=== PATIENT | male | born 1950 | race Caucasian/White ===

== ENCOUNTER 2024-03-05 21:21 | Emergency (ER) | payer MEDICARE, SELFPAY ==
[2024-03-05 21:24] VITALS: BP 158/74
--- NOTE | 2024-03-05 21:55 | ED.GENMED ---
History of Present Illness
General
Chief Complaint: Head Injury
Source: patient
Exam Limitations: none
Time Seen by Provider: 03/05/24 21:48
History of Present Illness
History of Present Illness:
74-year-old male presents for evaluation of head injury. He tripped going into the house and hit his forehead on the drywall. He denies headache loss of consciousness double vision blurry vision loss of vision or neck pain. He denies any nausea.
He has no complaints offer other than a little soreness of the forehead. He is not anticoagulated. No other complaints at this time
Past History
Past History
ED Past Medical History: Asthma, HTN, Hypercholesterolemia, NIDDM, [place] and Other (Psoriasis, Kidney stones, Chronic low back,)
ED Past Surgical History: Cardiac (Stent)
Social History
Tobacco: Smoker
Alcohol: None
Drug: None
Personal:
Living: with family
Employment: Employed
Phy Exam
Physical Exam
Physical Exam:
General: Well-appearing male no acute respiratory distress
HEENT: Normocephalic pupils equal round reactive to light no raccoon eyes
Musculoskeletal exam: Spine is nontender
Neurologic normal gait alert and oriented conversing appropriately no facial asymmetry or slurred speech
Course
Vital Signs
Initial and Last Documented VS:
Initial Vital Signs
Temp Pulse Resp BP Pulse Ox
97 F 80 26 158/74 94
03/05/24 21:24 03/05/24 21:24 03/05/24 21:24 03/05/24 21:24 03/05/24 21:24
Last Documented Vital Signs
Temp Pulse Resp BP Pulse Ox
97 F 80 26 158/74 94
03/05/24 21:24 03/05/24 21:24 03/05/24 21:24 03/05/24 21:24 03/05/24 21:24
MDM/Problems Addressed
Differential Diagnosis Includes:
Head injury evaluation. Has no complaints. Neurologically intact. Discussed role for imaging at this point held off. Cannot make diagnosis of concussion given no symptoms. Does have a slight contusion to the eyebrow. Return precautions were
given stable for discharge
*Critical Care Note
Total Time (30-74mins, 75-104mins- exclusive of procedures): Not Applicable
ED Attending Note
-
Portions of this chart may have been created with voice recognition software.� Occasional wrong word or��sound alike� substitutions may have occurred due to the inherent limitations of voice recognition software.
Discharge Plan
Departure
Patient Disposition: Home (Routine Discharge)
Date of Disposition: 03/05/24
Time of Disposition: 22:00
Patient with high blood pressure during this ER visit?: No
Discharge Problem:
Contusion
Instructions: Concussion, Adult (DC)
Prescriptions:
No Action
lorazepam 2 MG tablet
1 - 2 mg PO HS
Patient Comments:
'USUALLY TAKE 2 TABS' 1MG EACH AT BEDTIME
albuterol sulfate 18 GM HFA aerosol inhaler
2 puff IH TID PRN (Reason: SOB)
Patient Comments:
ADMITS HAS TO TAKE 3X DAY A LOT
clonidine HCl 0.1 MG tablet
0.1 mg PO QPM
glipizide 10 MG tablet extended release 24hr
10 mg PO QPM
Patient Comments:
PT POOR HISTORIAN MEDICATIONS
topiramate 25 MG tablet
25 mg PO QPM
methotrexate sodium 2.5 MG tablet
8 tab PO SA
Patient Comments:
'8 TABS Q WEDNESDAY'
lisinopril 10 MG tablet
10 mg PO QPM
fluticasone propion-salmeterol [Advair Diskus] 1 DISK blister with device
2 puff inhalation BID
lorazepam 1 MG tablet
1 mg PO HS
pioglitazone 30 MG tablet
30 mg PO QPM
dapagliflozin propanediol [Farxiga] 10 MG tablet
10 mg PO QPM
Vitamin D3
1 tab PO QPM
atorvastatin 80 MG tablet
80 mg PO QPM Qty: 30 11RF
Rx Instructions:
Increase atorvastatin to 80 mg nightly
carvedilol 6.25 MG tablet
6.25 mg PO BID Qty: 30 11RF
aspirin 81 MG tablet,chewable
81 mg PO DAILY 0RF
ticagrelor [Brilinta] 90 MG tablet
90 mg PO BID Qty: 60 11RF
metformin 500 MG tablet extended release 24 hr
500 mg PO BID Qty: 60 0RF
Rx Instructions:
Resume metformin on Wednesday, April 19, 2019.
Referrals:
UNKNOWN - PT DOES,NOT KNOW [Family Provider] -
Activity Restrictions/Additional Instructions:
Please return here for any worsening symptoms as discussed including headache and vision change nausea or other concerning findings.
Interventions
Interventions:
*Risk Screen - Suicide Last Done: 03/05/24 21:24
*Neglect/Abuse Screening Last Done: 03/05/24 21:24
ED- Fall Risk Assessment Last Done: 03/05/24 21:49
Discharge Date and Time
Print Language: PASHTO
[2024-03-05 22:03] VITALS: BMI 42.3
== END 2024-03-05 22:09 | disposition home or self-care (01) ==
LOC: EMR 21:21
PROVIDERS: EMERGENCY PHYSICIAN Emergency Medicine
DX: S00.10XA Contusion of unspecified eyelid and periocular area, initial encounter (principal); W22.01XA Walked into wall, initial encounter; J45.909 Unspecified asthma, uncomplicated; I10 Essential (primary) hypertension; E78.00 Pure hypercholesterolemia, unspecified; E11.9 Type 2 diabetes mellitus without complications; I25.2 Old myocardial infarction; L40.9 Psoriasis, unspecified; F17.200 Nicotine dependence, unspecified, uncomplicated; Z87.442 Personal history of urinary calculi; Z95.5 Presence of coronary angioplasty implant and graft
CPT/HCPCS: 99282

== ENCOUNTER 2025-02-13 13:18 | Emergency (ER) | payer OTHER, SELFPAY ==
[2025-02-13 13:24] VITALS: BMI 46.7
[2025-02-13 13:25] VITALS: BP 174/72
[2025-02-13 13:30] VITALS: BP 156/70
[2025-02-13 14:00] VITALS: BP 148/51
[2025-02-13 14:12] LABS: Urine Albumin Negative (Neg - Trace); Urine Bilirubin Negative (Negative); Urine Character Clear (Clear); Urine Color Yellow; Urine Glucose 4+ (Negative); Urine Ketone 2+ (Negative); Urine Leukocyte Negative (Negative); Urine Nitrite Negative (Negative); Urine Occult Blood Negative (Negative); Urine Urobilinogen Negative (Neg - 1+)
--- NOTE | 2025-02-13 16:00 | ED.GENMED ---
History of Present Illness
General
Chief Complaint: Abdominal Pain
Source: patient
Exam Limitations: none
Time Seen by Provider: 02/13/25 13:30
Nursing documentation reviewed up to this point in time: agreed with
History of Present Illness
History of Present Illness:
Patient presents to ED secondary to difficulty with bowel movement despite using pdyq-xye-ibqmoht stool softener and laxatives, along with difficulty with urination starting today. Patient states that he does constantly deal with constipation
requiring enema treatment. Denies fever or chills. Denies abdominal pain. Denies nausea or vomiting. Denies recent change in medications.
Past History
Past History
ED Past Medical History: Asthma, HTN, Hypercholesterolemia, NIDDM, [place] and Other (Psoriasis, Kidney stones, Chronic low back,)
ED Past Surgical History: Cardiac (Stent)
Social History
Tobacco: Smoker
Alcohol: None
Drug: None
Personal:
Living: with family
Employment: Employed
Review of Systems
Review of Systems
Allergies reviewed?: Yes
All Other Systems: ROS reviewed and negative except as documented in HPI and ROS
Constitutional: Reports no symptoms; Denies fever
Cardiac: Reports no symptoms
ABD/GI: Reports constipated; Denies abdominal pain or vomiting
: Reports difficulty voiding
Musculoskeletal: Reports no symptoms
Skin: Reports no symptoms
Neurological: Reports no symptoms
Phy Exam
Physical Exam
Physical Exam:
Physical Exam
General: no apparent distress, not acutely ill. afebrile.
Head: nc/at. eomi
Neck: supple. no meningeal signs.
Abdomen: normal bowel sounds. not tender. no distention
Neuro: alert and oriented x 3. no focal neurological deficits
Skin: no rash
Psychiatric: well kept. interactive and cooperative
Extremities: no edema. no calf tenderness.
Course
Orders/Labs/Results
Orders:
Orders
02/13/25 13:31
Bladder Scan- Treatment ONCE
CR Obstruct Series W/pa Chest Urgent
Comment:
Reason For Exam: abd pain
02/13/25 13:44
UA [Urinalysis] Urgent
Date Specimen was Collected: 02/13/25
Time Specimen was Collected: 13:43
02/13/25 15:48
Phosphate Enema [Fleet Phosphate Enema-Adult] 135 ml RECTAL NOW STA
02/13/25 16:05
Lidocaine/Epinephrine/Tetracai [Let Topical Anesthetic Gel] 3 ml .ROUTE .STK-MED ONE
Abnormal Lab Results
02/13/25
13:44
Urine Ketones 2+ A
(Negative)
Urine Glucose 4+ A
(Negative)
Vital Signs
Initial and Last Documented VS:
Initial Vital Signs
Temp Pulse Resp BP Pulse Ox
98.7 F 82 18 174/72 91
02/13/25 13:25 02/13/25 13:25 02/13/25 13:25 02/13/25 13:25 02/13/25 13:25
Last Documented Vital Signs
Temp Pulse Resp BP Pulse Ox
98.7 F 82 18 148/51 94
02/13/25 13:25 02/13/25 13:25 02/13/25 13:25 02/13/25 14:00 02/13/25 14:15
MDM/Problems Addressed
MDM/Problems Addressed:
Bladder scan report reviewed. Straight cath performed to decompress patient's bladder. Patient's presenting urinary retention, likely secondary to significant constipation.
X-ray report reviewed and discussed with patient.
Rectal exam performed at bedside, accompanied by DEVAN Jimenez, with removal of significant amount of stool, with improvement in symptoms. Afterwards, patient given Fleet enema.
Prior to discharge, patient given water and is noted to urinate spontaneously without any difficulty. Patient will be discharged in stable condition, with recommendation to modify his diet, including increased fiber, along with stool softener, as
well as PCP follow-up.
*Critical Care Note
Total Time (30-74mins, 75-104mins- exclusive of procedures): Not Applicable
ED Attending Note
-
Portions of this chart may have been created with voice recognition software.� Occasional wrong word or��sound alike� substitutions may have occurred due to the inherent limitations of voice recognition software.
Discharge Plan
Departure
Patient Disposition: Home (Routine Discharge)
Date of Disposition: 02/13/25
Time of Disposition: 17:11
Patient with high blood pressure during this ER visit?: Yes
Discharge Problem:
Constipation
Instructions: Constipation, Adult (DC)
Prescriptions:
No Action
lorazepam 2 MG tablet
1 - 2 mg PO HS
Patient Comments:
'USUALLY TAKE 2 TABS' 1MG EACH AT BEDTIME
albuterol sulfate 18 GM HFA aerosol inhaler
2 puff IH TID PRN (Reason: SOB)
Patient Comments:
ADMITS HAS TO TAKE 3X DAY A LOT
clonidine HCl 0.1 MG tablet
0.1 mg PO QPM
glipizide 10 MG tablet extended release 24hr
10 mg PO QPM
Patient Comments:
PT POOR HISTORIAN MEDICATIONS
topiramate 25 MG tablet
25 mg PO QPM
methotrexate sodium 2.5 MG tablet
8 tab PO SA
Patient Comments:
'8 TABS Q WEDNESDAY'
lisinopril 10 MG tablet
10 mg PO QPM
fluticasone propion-salmeterol [Advair Diskus] 1 DISK blister with device
2 puff inhalation BID
lorazepam 1 MG tablet
1 mg PO HS
pioglitazone 30 MG tablet
30 mg PO QPM
dapagliflozin propanediol [Farxiga] 10 MG tablet
10 mg PO QPM
Vitamin D3
1 tab PO QPM
atorvastatin 80 MG tablet
80 mg PO QPM Qty: 30 11RF
Rx Instructions:
Increase atorvastatin to 80 mg nightly
carvedilol 6.25 MG tablet
6.25 mg PO BID Qty: 30 11RF
aspirin 81 MG tablet,chewable
81 mg PO DAILY 0RF
ticagrelor [Brilinta] 90 MG tablet
90 mg PO BID Qty: 60 11RF
metformin 500 MG tablet extended release 24 hr
500 mg PO BID Qty: 60 0RF
Rx Instructions:
Resume metformin on Wednesday, April 19, 2019.
Referrals:
Chester Chang MD [Family Provider, Family Practice]
Activity Restrictions/Additional Instructions:
As discussed, please follow-up with your primary care physician for further evaluation and treatment. In the meantime, slowly recommend increasing fiber intake along with utilizing outpatient stool softener.
Interventions
Interventions:
*Risk Screen - Suicide Last Done: 02/13/25 13:26
*General Assessment Last Done: 02/13/25 13:27
*Neglect/Abuse Screening Last Done: 02/13/25 13:26
*ED- Fall Risk Assessment Last Done: 02/13/25 13:27
*ED COVID-19 Vaccine History Last Done: 02/13/25 17:34
*Nursing Disposition Last Done: 02/13/25 17:34
VS-Aayubj-Qnvutxamwz Assessment Last Done: 02/13/25 13:26
Discharge Date and Time
Discharge Date/Time: 02/13/25 17:38
Print Language: PALESTINIAN
[2025-02-13] MEDS: FLEET PHOSPHATE ENEMA-ADULT 135 ML RECTAL (16:37)
== END 2025-02-13 17:38 | disposition home or self-care (01) ==
LOC: EMR 13:18
PROVIDERS: EMERGENCY PHYSICIAN Emergency Medicine; FAMILY PHYSICIAN Family Medicine
DX: K59.00 Constipation, unspecified (principal); E11.9 Type 2 diabetes mellitus without complications; E78.00 Pure hypercholesterolemia, unspecified; I10 Essential (primary) hypertension; J45.909 Unspecified asthma, uncomplicated; F17.200 Nicotine dependence, unspecified, uncomplicated; Z95.5 Presence of coronary angioplasty implant and graft
CPT/HCPCS: 99284; 74022; 81003

== ENCOUNTER 2025-03-26 19:38 | Inpatient (IN) | payer OTHER, SELFPAY ==
[2025-03-26] VITALS (7 sets, daily range): BP systolic 93–165; BP diastolic 39–81; BMI 50.1; BMI 48.1
[2025-03-26 14:07] LABS: Hematocrit 33.7 % (39.0-52.0); Hemoglobin 10.6 g/dL (13.0-18.0); Mean Corp Hgb Conc. 31.5 g/dL (33.0-37.0); Mean Corpuscular Volume 103.1 fL (80.0-94.0); Nucleated Red Blood Cells % 0 % (-); Platelet Count 135 10^3/uL (130-400); Red Cell Dist. Width 15.1 % (11.5-14.5)
[2025-03-26 14:11] LABS: INR 1.47; PT 18.1 Sec (11.4-14.6)
[2025-03-26 14:26] LABS: ALT (SGPT) 15 U/L (0-50); AST (SGOT) 22 U/L (17-59); Albumin 3.7 g/dl (3.5-5.0); Alkaline Phosphatase 90 U/L (38-126); Blood Urea Nitrogen 25 mg/dl (9-20); Calcium 8.8 mg/dl (8.4-10.2); Carbon Dioxide 29 mmol/L (22-30); Chloride 110 mmol/L (98-107); Glucose 67 mg/dl (70-99); Potassium 3.7 mmol/L (3.5-5.1); Sodium 142 mmol/L (135-145); Total Protein 5.9 g/dl (6.3-8.2); eGFR > 60.00
[2025-03-26 14:31] LABS: Troponin I < 0.012 ng/ml
--- NOTE | 2025-03-26 16:05 | ED.GENMED ---
History of Present Illness
General
Chief Complaint: Swelling
Time Seen by Provider: 03/26/25 15:45
History of Present Illness
History of Present Illness:
75-year-old male with history of coronary artery disease status post LISANDRO x 1 in 2019, hypertension, tobacco use, and rru-bdyxdbt-ljaqqemob diabetes presents to the emergency department for evaluation of diffuse lower extremity edema extending to the
scrotum. He reports extensive weight gain over an unknown timeframe, indicates that his dry weight should be roughly 280 to 285 pounds. Bed scale weight today shows 319 pounds. He reports shortness of breath today, noted to be 87% on room air for
RN. No chest pain. No fevers or chills.
Past History
Past History
ED Past Medical History: Asthma, HTN, Hypercholesterolemia, NIDDM, [place] and Other (Psoriasis, Kidney stones, Chronic low back,)
ED Past Surgical History: Cardiac (Stent)
Social History
Tobacco: Smoker
Alcohol: None
Drug: None
Personal:
Living: with family
Employment: Employed
Review of Systems
Review of Systems
Allergies reviewed?: Yes
All Other Systems: ROS reviewed and negative except as documented in HPI and ROS
Phy Exam
Physical Exam
Physical Exam:
GEN: Acute respiratory distress, unable to tolerate supine position
HEENT: Oral mucosa moist, no scleral icterus
Cardiac: Regular rate and rhythm
Lung: Tachypneic, diminished bibasilar breath sounds
MSK: Massive pitting edema BLE to scrotum
: Marked scrotal edema/erythema. Candidal dermatitis L inguinal region
Skin:Significant erythema to dorsum of R foot with macerated skin to interdigital spaces
Neuro: AO x3, moves all extremities freely
Psych: Calm, cooperative
Scores
Heart Failure Risk
Heart Failure Risk Score: Yes
History of Stroke or TIA: No
History of intubation for respiratory distress: No
Heart rate on ED arrival >/= 110: No
SaO2 <90% on arrival on room air: Yes
HR >/=110 during 3min walk test (or too ill to perform test): Yes
ECG has acute ischemic changes: No
Urea >/=12mmol/L (BUN 33.6mg/dL): No
Serum CO2>/=35mmol/L: No
Troponin I or T elevated to ND Level (0.4mg/dL): No
NT-proBNP >/=5,000ng/L (5,000pg/ml): No
HF Risk Score: 3
Admission Status: HIGH RISK 15.9% Consider SNF treatment or admission to hospital
Course
Orders/Labs/Results
Orders:
Orders
03/26/25 13:08
Electrocardiogram (*1) Urgent
Reason for Study: Chest Pain
EKG- Treatment ONCE
IV Insert/Care/Rem.- Treatment PRN
03/26/25 13:09
Chest [CR Chest - 2 Views ] Urgent
Comment:
Reason For Exam: SOB
03/26/25 13:30
BNP [NT-proBNP] Urgent
Complete Blood Count/With Diff Urgent
Comprehensive Metabolic Panel Urgent
Prothrombin Time Urgent
Troponin I Urgent
03/26/25 Dinner
1800 calorie (15 carb) Diabetic
At Your Request: Full Participation
03/26/25 16:04
Furosemide [Lasix] 60 mg IV NOW STA
Potassium Chloride [KCl] 20 meq PO NOW STA
03/26/25 16:05
CeFAZolin 2 GRAM [Ancef] 2 grams in 10 ml IV NOW
03/26/25 16:46
Garcia Placement- Treatment ONCE
Reason for insertion: I&O's Critical Care
03/26/25 19:07
Admit/Transfer Patient As Directed
Co-Sign Provider:
Level of Care: Inpatient admission
Assign to:: Telemetry
Physician / Group: Polly Graham
Diagnosis: acute on chronic congestive heart failure
Reason for Telemetry: Acute Heart Failure
Date to Stop Telemetry: 03/29/25
Time to Stop Telemetry: 11:00
Reason for Hospitalization: acute on chronic congestive heart failure
Expected length of stay greater than two midnights?: Yes
ELOS- Estimated Length of Stay in days: 3
I certify the patient meets the requirements for IP care: Yes
03/26/25 19:08
PRN Pain Medication Management As Directed
May give lesser potent ordered pain med per pt: Yes
preference::
Protocol:: Medication orders for pain may be administered in a
manner that supports deferring to patient preference
when the pt is:
- Requesting an ordered lesser potent pain medication.
Least to most potent pain medications are defined
as: acetaminophen < NSAID < tramadol < opioids
(morphine, oxycodone, hydromorphone).
- Requesting a lesser dose of the same medication IF
ORDERED.
- Requesting a less intrusive route of administration
if both routes are prescribed by the provider (PO <
IV).
03/26/25 19:09
Oxycodone/Acetaminophen [Percocet 5/325] 1 tablet PO NOW STA
03/26/25 19:13
Code Status As Directed
Resuscitation Status: Full Code
03/26/25 20:28
Acetaminophen [Tylenol] 650 mg PO Q4HPRN PRN
Albuterol [ProAIR HFA INHALER] 2 puff INH R Q6HPRN PRN wheezing
Apixaban [Eliquis] 5 mg PO Q12
Carvedilol [Coreg] 6.25 mg PO Q12
METFORMIN HCl [Glucophage] 500 mg PO .SEE BELOW
Oxycodone/Acetaminophen [Percocet 5/325] 1 tablet PO BID
Tramadol HCl [Ultram] 50 mg PO BIDPRN PRN mild pain
03/26/25 20:28
CARDIOLOGY CONSULT Routine
Consulting Provider: Jeevan Eastman
Was physician already notified: Yes
HF DIETARY CONSULT Routine
HF EDUCATOR CONSULT Routine
Comment:
Activity As Directed
Activity Level: As Tolerated
Intake/ Output As Directed
Frequency: Per unit guidelines
Patient Education As Directed
Type: CHF folder
Comment: give on admission. Document in Interdisciplinary Education record
Sleep Apnea Assessment by RN As Directed
Comment:
Physician Instructions:
Vital Signs As Directed
Frequency: Per unit guidelines
Weight As Directed
Frequency: Daily
Type of Scale: Standing Scale
Comment: Daily morning weight. If unable to stand, use balanced bed scale.
Weight As Directed
Frequency: Once
Type of Scale: Standing Scale
Comment: Upon Admission. If unable to stand, use balanced bed scale.
Pulse Ox/cont/shift [RESP] Routine
Quantity: 1
Special Instructions: Daily pulse oximetry at rest. If greater than 92% at rest also obtain pulse oximetry
while ambulating as tolerated.
03/26/25 20:40
Ipratropium Nebs [Atrovent Nebules] 0.5 mg INH R HSPRN PRN
03/26/25 22:00
Clonidine [Catapres] 0.1 mg PO HS
Lorazepam [Ativan] 2 mg PO HS
03/27/25 02:00
CeFAZolin 1 GRAM [Ancef] 1 gram in 5 ml IV Q8H
03/27/25 06:00
Echo 2D MMode Color/Doppler IN AM
Reason for Study: heart failure
Basic Metabolic Panel IN AM
Cardiovascular Evaluation IN AM
Complete Blood Count/No Diff IN AM
03/27/25 08:00
Aspirin Low Dose EC [Aspir Low (Enteric Coated)] 81 mg PO DAILY
Atorvastatin [Lipitor] 80 mg PO DAILY
Dapagliflozin [Farxiga] 10 mg PO DAILY
Furosemide [Lasix] 60 mg PO DAILY
Glipizide Extended Release [Glucotrol Xl (Extended Release)] 10 mg PO DAILY
Pioglitazone HCl [Actos] 30 mg PO DAILY
03/29/25 11:00
DC Protocol for Telemetry ONCE
Abnormal Lab Results
03/26/25
13:30
RBC 3.27 L 10^6/uL
(4.70-6.10)
Hgb 10.6 L g/dL
(13.0-18.0)
Hct 33.7 L %
(39.0-52.0)
MCV 103.1 H fL
(80.0-94.0)
MCH 32.4 H pg
(27.0-31.0)
MCHC 31.5 L g/dL
(33.0-37.0)
RDW 15.1 H %
(11.5-14.5)
MPV 10.8 H fL
(7.4-10.4)
Absolute Lymphs (auto) 0.8 L 10^3/uL
(1.2-3.4)
Lymphocytes % 15.6 L %
(20.5-51.1)
PT 18.1 H Sec
(11.4-14.6)
Chloride 110 H mmol/L
(98-107)
BUN 25 H mg/dl
(9-20)
Glucose 67 L mg/dl
(70-99)
Total Protein 5.9 L g/dl
(6.3-8.2)
03/26/25 13:30
03/26/25 13:30
Vital Signs
Initial and Last Documented VS:
Initial Vital Signs
Temp Pulse Resp BP Pulse Ox
97.7 F 66 22 157/66 93
03/26/25 13:07 03/26/25 13:07 03/26/25 13:07 03/26/25 13:07 03/26/25 13:07
Last Documented Vital Signs
Temp Pulse Resp BP Pulse Ox
97.9 F 110 20 165/74 93
03/26/25 20:46 03/26/25 20:46 03/26/25 20:46 03/26/25 20:46 03/26/25 20:46
MDM/Problems Addressed
MDM/Problems Addressed:
Patient will be admitted to the hospitalist service for further management of acute CHF, he is anticoagulated thus doubt PE or DVT. No clinical signs of pneumonia on chest x-ray. Started diuresis in the ED. Additionally due to massive edema and
skin breakdown he has signs of cellulitis to the right foot and will be treated with IV antibiotics.
*Pulse Oximetry
SaO2: 99
Nasal Cannula flow liters per minute: 3
Oxygen Mode of Delivery: Room air
Patient hypoxic: yes (87% RA)
*Critical Care Note
Total Time (30-74mins, 75-104mins- exclusive of procedures): Not Applicable
ED Attending Note
-
Portions of this chart may have been created with voice recognition software.� Occasional wrong word or��sound alike� substitutions may have occurred due to the inherent limitations of voice recognition software.
Discharge Plan
Departure
Patient Disposition: Admit
Date of Disposition: 03/26/25
Time of Disposition: 17:08
Admit to: Telemetry
Presentation/result/management discussed w/ accepting MD/DO: Hospitalist
Discharge Problem:
Acute CHF, Anasarca, Cellulitis of foot, right, Candidal intertrigo
Interventions
Interventions:
*Risk Screen - Suicide Last Done: 03/26/25 13:07
*General Assessment Last Done: 03/26/25 13:07
*Neglect/Abuse Screening Last Done: 03/26/25 16:05
*ED- Fall Risk Assessment Last Done: 03/26/25 16:05
*ED COVID-19 Vaccine History Last Done: 03/26/25 16:05
*Nursing Disposition Last Done: 03/26/25 20:17
ED- Cardiac Assessment Last Done: 03/26/25 19:26
ED- Pulmonary Assessment Last Done: 03/26/25 19:26
ED-Skin Assessment Last Done: 03/26/25 19:26
Discharge Date and Time
Discharge Date/Time: 03/26/25 20:18
[2025-03-26] MEDS: KCL 20 MEQ PO (17:08)
[2025-03-26] MEDS: LASIX 60 MG IV (17:08)
[2025-03-26] MEDS: ANCEF 10 IV (17:08)
--- NOTE | 2025-03-26 18:08 | HPS.HSE ---
Addendum entered and electronically signed by Polly Graham MD 03/26/25 22:12:
I have personally seen and examined the patient. I have reviewed the patient with ICT SYSTEMS TEST ENGINEER or PA and agree with their note.
75-year-old male with CHF, DM 2, HTN, HLD, CAD who presents with progressively worsening bilateral lower extremity edema, weight gain, and SCANLON over 2 weeks. He is somewhat of a poor historian. Patient reports compliance with all of his medication.
He reports redness of his right foot for about a week.
On exam he is hypertensive and tachycardic. He is able to speak without conversational dyspnea. His heart is regular rate and rhythm and there are no murmurs. He has crackles at bilateral lung bases. his abdomen is distended but soft and
nontender w/ NABS. He has scrotal edema, and bilateral lower extremity edema with 3+ pitting to the knees. His right foot is erythematous and weeping.
Labs notable for hemoglobin 10.6 and elevated proBNP 1230
CXR shows mild vascular congestion but no pleural effusion
EKG reviewed, Poor quality wavy baseline, appears regular
Assessment:
Acute on chronic CHF unknown if systolic or diastolic, in 2019 EF was normal
Right foot cellulitis, acute
HTN, uncontrolled
DM2, uncontrolled
Plan:
Recheck EKG to establish baseline rhythm
Check repeat echo
CHF education
Diuresis with IV Lasix, patient has Garcia monitor I&O
Cardiology consult
Continue antibiotics for cellulitis
Sliding scale insulin to control BG
Original Note:
Family Physician
-
Family Physician: Chester Chang
Chief Complaint
-
bilateral lower extremity and scrotal edema
History of Present Illness
Patient is a 75-year-old male with past medical history significant for CHF, asthma, DM II, hypertension, hyperlipidemia, and CAD who presented to [facility] ED for evaluation of bilateral lower extremity and scrotal edema. Patient reports edema has been
present and increasing for approximately 2 weeks. Is associated with exertional dyspnea. He reports going to see gear grinder today and was instructed to go to the ED for evaluation and treatment. Patient reports significant weight gain of
approximately 35-40 pounds since hospital discharge at [facility] in December where he was treated for pneumonia. Patient denies any fever, chills, cough, chest pain, nausea, vomiting or bowel or bladder changes.
Medical History
Past Medical History
Past Medical History: Reports Other
Additional Past Medical History:
CHF
asthma
DM II
hypertension
hyperlipidemia
CAD
Past Surgical History: Reports Other
Additional Past Surgical History:
Left L5-S1 ILESI 06/23/2017
Right L5-S1 Interlaminar Epidural Steroid Injection 05/23/18
Bilateral S1 Transforaminal Epidural Steroid Injection 07/21/18
L heart Cath 04/17/2019
Social History
Tobacco: Former Smoker (quit 1 year ago )
Alcohol: None
Drug: None
Personal: Other ( )
Living: With Family
Employment: Retired
Family History
Family History: Other (Father: CAD; Mother: Alzheimer's )
Allergies / Home Medications
Allergies reflects when Allergies were last updated in [employer].
Home Medications with original date entered in [employer]
Allergy/Medication List:
Allergies
Allergy/AdvReac Type Severity Reaction Status Date / Time
environmental Allergy nasal Uncoded 02/13/25 13:22
sympotms
hayfever Allergy nasal Uncoded 02/13/25 13:22
symptoms
Home Medications
clonidine HCl 0.1 mg tablet 0.1 mg PO HS 04/15/19
dapagliflozin propanediol 10 mg tablet (Farxiga) 10 mg PO DAILY 04/15/19
glipizide 10 mg tablet, extended release 24 hr 10 mg PO DAILY 04/15/19
lorazepam 1 mg tablet 2 mg PO HS 04/15/19
methotrexate sodium 2.5 mg tablet 20 mg PO SA 04/15/19
pioglitazone 30 mg tablet 30 mg PO DAILY 04/15/19
albuterol sulfate 90 mcg/actuation aerosol inhaler 2 puff inhalation R Q6HPRN PRN wheezing 03/26/25
apixaban 5 mg tablet (Eliquis) 5 mg PO Q12H 03/26/25
aspirin 81 mg tablet,delayed release 81 mg PO DAILY 03/26/25
atorvastatin 80 mg tablet 80 mg PO DAILY 03/26/25
carvedilol 6.25 mg tablet 6.25 mg PO Q12H 03/26/25
fluticasone 500 mcg-salmeterol 50 mcg/dose blistr powdr for inhalation (Advair Diskus) 0 inh inhalation .SEE BELOW PRN sob 03/26/25
furosemide 20 mg tablet 20 mg PO DAILY 03/26/25
ibuprofen 200 mg tablet (Advil) 800 - 1,000 mg PO TIDPRN PRN mild pain 03/26/25
ipratropium bromide 17 mcg/actuation HFA aerosol inhaler (Atrovent HFA) 2 puff inhalation R HSPRN PRN sob 03/26/25
metformin 500 mg tablet 500 mg PO .SEE BELOW 03/26/25
oxycodone-acetaminophen 5 mg-325 mg tablet 1 tab PO BID 03/26/25
tramadol 50 mg tablet 50 mg PO BIDPRN PRN mild pain 03/26/25
Review of Systems
-
History Source: Patient
Constitutional: Reports Weight Gain (35-40 pounds )
EENT: Reports No Symptoms
Respiratory: Reports No Symptoms
Cardiac: Reports No Symptoms
Abdomen/GI: Reports No Symptoms
: Reports No Symptoms
Musculoskeletal: Reports Edema (bilateral upper and lower extremity and scrotal )
Skin: Reports No Symptoms
Neurological: Reports No Symptoms
Endocrine: Reports No Symptoms
Hematologic/Lymphatic: Reports No Symptoms
Psych: Reports No Symptoms
Physical Exam
Vital Signs
Vital Signs
Temp Pulse Resp BP Pulse Ox
98.3 F 63 24 122/39 100
03/26/25 16:00 03/26/25 18:00 03/26/25 18:00 03/26/25 18:00 03/26/25 18:00
Physical Exam
General: Well Developed, Well Nourished and No Apparent Distress
HEENT: NormoCephalic, Moist mucous membranes and Atraumatic
Respiratory: Clear and Decreased Breath Sounds
Cardiac: S1/S2, Regular Rhythm and Peripheral Edema (bilateral lower extremity pitting edema)
GI: Soft, Non Tender, Non Distended and Normal Bowel Sounds; No Organomegaly
Rectal: Deferred by Provider
Genito-urinary: Other (scrotal edema with jamey )
Musculoskeletal: No Clubbing, No Cyanosis, Edema, Left Lower Extremity and Edema, Right Lower Extremity
Skin: Warm and Other (erythema to dorsal right foot )
Neuro: Awake, Alert, AO x 3 and Nonfocal/grossly intact
Psych: Calm and Intact Judgment/Insight
Laboratory Results
-
03/26/25 13:30
03/26/25 13:30
Laboratory Results
PT 18.1 Sec (11.4-14.6) H 03/26/25 13:30
INR 1.47 03/26/25 13:30
Total Bilirubin 0.7 mg/dl (0.2-1.3) 03/26/25 13:30
AST 22 U/L (17-59) 03/26/25 13:30
ALT 15 U/L (0-50) 03/26/25 13:30
Alkaline Phosphatase 90 U/L (38-126) 03/26/25 13:30
Troponin I < 0.012 ng/ml 03/26/25 13:30
Data Reviewed
-
Diagnostic Radiology: Report Reviewed by me (CXR: Mild prominence of the pulmonary vasculature suggestive of mild vascular congestion. No focal airspace disease. No large pleural effusion)
Medical Tests (Nuc Med, Echo, EKG etc): Report Reviewed by me (EKG: POOR DATA QUALITY, INTERPRETATION MAY BE ADVERSELY AFFECTED SINUS RHYTHM LOW VOLTAGE QRS)
Lab Data: Labs Reviewed by me (hgb 10.6, hct 33.7, BNP 1230, trop <0.012)
Impression/Plan
-
IMPRESSION/PLAN:
#acute on chronic congestive heart failure
sees gear grinder at [facility], does not recall group name or physician name
hgb 10.6, hct 33.7, BNP 1230, trop <0.012
EKG: POOR DATA QUALITY, INTERPRETATION MAY BE ADVERSELY AFFECTED
SINUS RHYTHM
LOW VOLTAGE QRS
CXR: Mild prominence of the pulmonary vasculature suggestive of mild vascular congestion. No focal airspace disease. No large pleural effusion.
- Admit to telemetry
- Consult Cardiology
- IV Lasix
- continue dapagliflozin
- daily weights
- I & Os
#right foot cellulitis
- IV Ancef
#asthma
- continue albuterol HFA and Atrovent HFA
#DM II
- continue dapagliflozin, glipizide and pioglitazone
- hold metformin
#hypertension
- continue clonidine
#hyperlipidemia
#CAD
- continue aspirin and atorvastatin
Patient unaware why he takes Eliquis, is aware it is prescribed and takes it BID. He is also unsure who prescribes for him. Continued Eliquis on med rec for now.
Code status: Full code
DVT prophylaxis: Eliquis
--- NOTE | 2025-03-26 18:10 | PHANOTE ---
03/26/2025, pt. claims to be taking 2 puffs of Advair inhaler TIDPRN for SOB; could not confirm with pharmacy records; ecw records are from 07/23/2025.
[2025-03-26] MEDS: PERCOCET 5/325 1 TABLET PO ×2 (19:17→21:44)
[2025-03-26 21:19] LABS: Glucose - Point of Care 98 mg/dl (70-99)
[2025-03-26] MEDS: ATIVAN 2 MG PO (21:43)
[2025-03-26] MEDS: ELIQUIS 5 MG PO (21:43)
[2025-03-26] MEDS: COREG 6.25 MG PO (21:43)
[2025-03-26] MEDS: CATAPRES 0.1 MG PO (21:44)
[2025-03-26] MEDS: DESENEX/MITRAZOL/ZEASORB 1 APPLIC TOPICAL (22:36)
[2025-03-27] VITALS (7 sets, daily range): BP systolic 103–135; BP diastolic 52–90; BMI 48.1; BMI 48.3
[2025-03-27] MEDS: ANCEF 5 IV ×3 (02:10→17:22)
[2025-03-27] MEDS: FLUSH (NSS) 2 FLUSH IV (02:11)
--- NOTE | 2025-03-27 02:44 | PTCARENOTE ---
Patient received from ED via stretcher and was assisted to bed by staff. He was oriented to room and surroundings. O2 at 3lpm with sat 93% Breath sounds are decreased at the bases. Patient with dyspnea on exertion and orthopnea. HR irregular.
Tele A-fib. Dr Graham in room , tele strip reviewed and patient assessed by her. Garcia draining clear yellow urine. Garcia care done. Wounds as documented. See nursing assessment for further physical findings.
[2025-03-27 04:04] LABS: Glucose - Point of Care 60 mg/dl (70-99)
[2025-03-27 04:17] LABS: Glucose - Point of Care 65 mg/dl (70-99)
[2025-03-27 04:33] LABS: Glucose - Point of Care 78 mg/dl (70-99)
[2025-03-27 06:22] LABS: Glucose - Point of Care 108 mg/dl (70-99)
[2025-03-27 07:24] LABS: Hematocrit 32.8 % (39.0-52.0); Hemoglobin 10.4 g/dL (13.0-18.0); Mean Corp Hgb Conc. 31.7 g/dL (33.0-37.0); Mean Corpuscular Volume 102.8 fL (80.0-94.0); Platelet Count 131 10^3/uL (130-400); Red Cell Dist. Width 14.9 % (11.5-14.5)
[2025-03-27 07:29] LABS: Glucose - Point of Care 96 mg/dl (70-99)
[2025-03-27 07:34] LABS: Blood Urea Nitrogen 22 mg/dl (9-20); Calcium 8.3 mg/dl (8.4-10.2); Carbon Dioxide 30 mmol/L (22-30); Chloride 109 mmol/L (98-107); Estimated Creatinine Clearance > 125 ml/min; Glucose 106 mg/dl (70-99); HDL Cholesterol 43 mg/dl; LDL Cholesterol, Calculated 38 mg/dl; Potassium 3.6 mmol/L (3.5-5.1); Sodium 143 mmol/L (135-145); Very Low Density Lipoprotein 13 mg/dl (0-30); eGFR > 60.00
[2025-03-27] MEDS: LIPITOR 80 MG PO (08:10)
[2025-03-27] MEDS: NOVOLOG FLEXPEN-LOW RESISTANCE SC ×2 (08:10→16:40)
[2025-03-27] MEDS: ASPIR LOW (ENTERIC COATED) 81 MG PO (08:11)
[2025-03-27] MEDS: GLUCOTROL XL (EXTENDED RELEASE) 10 MG PO (08:11)
[2025-03-27] MEDS: ACTOS 30 MG PO (08:11)
[2025-03-27] MEDS: ELIQUIS 5 MG PO ×2 (08:11→20:42)
[2025-03-27] MEDS: FARXIGA 10 MG PO (08:11)
[2025-03-27] MEDS: PERCOCET 5/325 1 TABLET PO ×2 (08:14→20:43)
[2025-03-27] MEDS: LASIX 60 MG PO (08:15)
[2025-03-27] MEDS: COREG 6.25 MG PO ×2 (08:18→20:44)
[2025-03-27] MEDS: DESENEX/MITRAZOL/ZEASORB 1 APPLIC TOPICAL ×2 (08:20→20:44)
[2025-03-27 09:45] LABS: Glycohemoglobin (HgbA1c) 6.2 % (4.0-5.6)
--- NOTE | 2025-03-27 09:47 | PN.DE.MGMTRT ---
Insulin Management
- -
03/27/2025: Diabetes Management Consult
75 year old male with PMH: CHF, HTN, HLD, CAD and NIDDM, who presented to the ED with progressively worsening BLE edema, weight gain, and SCANLON over 2 weeks. He is somewhat of a poor historian. Patient reports compliance with all of his Diabetes
medications. A1C is 6.2%, Cr 0.7, eGFR >60
Chart review indicates that he was taking Actos 30 mg daily, Metformin 500mg BID, Farxiga 10mg daily and Glipizide 10mg daily Prior to admission.
Patient is awake, alert, resting in bed, noted for WOB, offers no complains, able to discuss diabetes care plan and collaborate his OP regimen.
Sees his PCP for routine Diabetes care. States he has a working glucose monitor and has been consistently monitoring his blood sugars(90-100's)
Glucose on admission was 67, has remained low normal since admission. HS glucose was 98, experienced hypoglycemia of 60 @ 4AM, improved after treatment.
Will reduce glipizide to 5mg daily. Continue Farxiga 10mg daily and Metformin 500mg BID.
Will HOLD Actos while inpatient and consider discontinuing it, given setting of heart failure.
Diabetes History
- -
Type of Diabetes: 2 requiring insulin
Pre-Admission Diabetes Regimen
03/26/25 03/27/25
13:30 06:28
Creatinine 0.8 0.7
Insulin Pump Settings
IP Diabetes Regimen
03/26/25 03/26/25 03/27/25
13:30 21:18 04:02
Glucose 67 L
POC Glucose 98 60 L
03/27/25 03/27/25 03/27/25
04:16 04:32 06:21
Glucose
POC Glucose 65 L 78 108 H
03/27/25 03/27/25
06:28 07:23
Glucose 106 H
POC Glucose 96
Patient Education
--- NOTE | 2025-03-27 09:48 | CON.CAR ---
Addendum entered and electronically signed by Anu Johnston PA-C 03/27/25 13:29:
Received records from outpatient publicity director Dr. Jeremiah Almazan of [facility]. Patient was last seen in October 2024.
Prior cardiac testing includes Lexiscan nuclear stress test in September 2022 which showed normal perfusion with possible inferior infarct versus artifact.
Addendum entered and electronically signed by Jeevan Eastman MD 03/27/25 12:36:
I saw and examined the patient.
The CALENDAR CONTROL CLERK BLOOD BANK or PA's note was reviewed and I agree with the note.
Comment: General: Well developed, well nourished in NAD.
Neck: Supple, no JVD, HJR, carotids +2 B/L, no bruits bilaterally.
Heart: Non displaced PMI, irregular, no murmurs, No S3, S4, no rubs.
Lungs: Scattered rhonchi
Extremities: Moderate edema bilaterally
Neuro: Grossly nonfocal, awake, alert and oriented x3.
Val[place] has a history of CAD with complete occlusion of PDA and mid LAD stent, chronic diastolic CHF, hypertension, hyperlipidemia, A-fib on chronic Eliquis, asthma, chronic back pain, morbid obesity. He was followed by [facility] [place] but is now followed by
[facility]. He presented weight gain lower extremity edema scrotal edema and shortness of breath. Chest x-ray consistent with CHF. proBNP 1230 with undetectable troponin.
Will diurese with IV Lasix. Dry weight might be as low as 290 pounds and is currently 310 pounds. Echocardiogram unchanged. Continue rate control of A-fib with carvedilol and also Eliquis. Might consider eventual cardioversion but might be high
risk for recurrent A-fib with likely severe sleep apnea
Original Note:
Consultation
Consultation Request
Date/Time Consultation Requested: 03/26/2025
Date/Time Consultation Performed: 03/27/2025
Requesting Provider: GEORGE Mcfarland
Performing Provider: Anu Johnston PA-C for Dr. Jeevan Eastman
Reason for Consultation: Weight gain, lower extremity edema, scrotal edema
Medical History
-
History of Present Illness:
Patient is a 75-year-old male with past medical history for coronary artery disease, type 2 diabetes, hypertension, hyperlipidemia, tobacco abuse, obesity, heart failure with preserved ejection fraction, chronic back pain and asthma. Patient was
previously followed by Dr. Xiong and was last seen in cardiology office in 2019 now reporting he follows with [facility] Dr. Almazan. He reports he was told by their office yesterday to go to the hospital and he has had bad
experiences at [facility] so he came to [place].
He presents to emergency department 03/26/2025 with weight gain, bilateral lower extremity edema, scrotal edema and shortness of breath. Chest x-ray with Mild prominence of the pulmonary vasculature suggestive of mild vascular congestion. No focal
airspace disease. No large pleural effusion. proBNP of 1230, troponin undetectable. EKG initially showed sinus rhythm however upon further review now appears patient is in atrial fibrillation with controlled ventricular response. Patient was given
60 mg IV Lasix in emergency department. Patient reports he has had good urination and feels less short of breath sitting in bed. He denies chest pain, palpitations, dizziness, lightheadedness
Past medical history:
Coronary artery disease
NEWSROOM INTERN of PDA on cath 2018
Status post mid LAD 3.5 x 28 mm Promus LISANDRO April 2019
Heart failure with previously ejection fraction
Hypertension
Hyperlipidemia
Paroxysmal atrial fibrillation
Chronic anticoagulation on Eliquis
Obesity
Tobacco abuse
Chronic back pain
Asthma
Past Medical History
Past Medical History: Other (See HPI)
Past Surgical History: Orthopedic (Multiple Interlaminar Epidural Steroid Injections )
Social History
Tobacco: Former Smoker (Quit 2023)
Alcohol: None
Drug: None
Personal: Other ()
Living: With Family (Lives with son)
Employment: Retired
Family History
Family History: CAD (Father)
Allergies / Home Medications
Allergy/AdvReac Type Severity Reaction Status Date / Time
pollen extracts Allergy HAYFEVER-NASAL Verified 03/26/25 20:30
SYMPTOMS
�Medication �Instructions �Recorded �Confirmed �Type
clonidine HCl 0.1 mg tablet 0.1 mg PO HS Blood Pressure 04/15/19 03/26/25 History
dapagliflozin propanediol 10 mg 10 mg PO DAILY Diabetes 04/15/19 03/26/25 History
tablet (Farxiga)
glipizide 10 mg tablet, extended 10 mg PO DAILY Diabetes 04/15/19 03/26/25 History
release 24 hr
lorazepam 1 mg tablet 2 mg PO HS Mental Health/Anxiety 04/15/19 03/26/25 History
methotrexate sodium 2.5 mg tablet 20 mg PO SA CHEMO 04/15/19 03/26/25 History
pioglitazone 30 mg tablet 30 mg PO DAILY Diabetes 04/15/19 03/26/25 History
albuterol sulfate 90 mcg/actuation 2 puff inhalation R Q6HPRN PRN 03/26/25 03/26/25 History
aerosol inhaler wheezing
apixaban 5 mg tablet (Eliquis) 5 mg PO Q12H Blood Clot 03/26/25 03/26/25 History
Prevention/Tx
aspirin 81 mg tablet,delayed 81 mg PO DAILY Blood Clot 03/26/25 03/26/25 History
release Prevention/Tx
atorvastatin 80 mg tablet 80 mg PO DAILY High Cholesterol 03/26/25 03/26/25 History
carvedilol 6.25 mg tablet 6.25 mg PO Q12H Blood Pressure 03/26/25 03/26/25 History
fluticasone 500 mcg-salmeterol 50 0 inh inhalation .SEE BELOW 03/26/25 History
mcg/dose blistr powdr for PRN sob
inhalation (Advair Diskus)
furosemide 20 mg tablet 20 mg PO DAILY Fluid 03/26/25 03/26/25 History
Retention/Swelling
ibuprofen 200 mg tablet (Advil) 800 - 1,000 mg PO TIDPRN PRN mild 03/26/25 03/26/25 History
pain
ipratropium bromide 17 2 puff inhalation R HSPRN PRN sob 03/26/25 03/26/25 History
mcg/actuation HFA aerosol inhaler
(Atrovent HFA)
metformin 500 mg tablet 500 mg PO .SEE BELOW Diabetes 03/26/25 03/26/25 History
oxycodone-acetaminophen 5 mg-325 1 tab PO BID Pain 03/26/25 03/26/25 History
mg tablet
tramadol 50 mg tablet 50 mg PO BIDPRN PRN mild pain 03/26/25 03/26/25 History
Review of Systems
-
History Source: Patient
All other systems: Negative unless noted
Physical Exam
Vital Signs
Temp Pulse Resp BP Pulse Ox
98.5 F 107 20 140/82 98
03/27/25 07:25 03/27/25 08:15 03/27/25 07:25 03/27/25 08:15 03/27/25 07:25
GEN: No distress, awake, Ox3, sitting in bed on oxygen
HEENT: supple, anicteric, mmm
LUNGS: Decreased breath sounds at bases bilaterally otherwise CTA, no wheezes/rales; wearing 3 L of oxygen via nasal cannula
CV: Distant heart tones irregularly irregular, S1/S2, no murmur, rub or gallop,
ABD: Obese, mild distention, BS+, NT/ND
EXT: +2-3 bilateral lower extremity edema
NEURO: Gross non-focal
SKIN: No rash, warm, dry, pink
Lab Results
03/27/25 06:28
03/27/25 06:28
Troponin I < 0.012 ng/ml 03/26/25 13:30
Qya-O-Ronbzpzwwxu Pept 1230 pg/ml 03/26/25 13:30
Impression / Plan
-
PCP: Chester Wilson
Hall Porter: Previously followed by Dr. Xiong, now follows with Dr. Almazan at [facility]
Impression:
Presents 03/26/2025 with weight gain, lower extremity edema, scrotal edema and shortness of breath
Acute on chronic heart failure with preserved ejection fraction on echo in 2019
Right foot cellulitis
Coronary artery disease
NEWSROOM INTERN of PDA on cath 2018
Status post mid LAD 3.5 x 28 mm Promus LISANDRO April 2019
Heart failure with preserved ejection fraction
Hypertension
Hyperlipidemia
Obesity
Tobacco abuse
Chronic back pain
Asthma
Cath Apr 2019: 95% stenosis in the mid LAD between the first and second septal perforated branches, 100% chronic occlusion of the PDA, ejection fraction 55% by left ventriculography. He underwent PCI and LISANDRO of mid LAD stenosis with a 3.5 x 28 mm
Promus stent.
Echo 03/27/2025: EF 60 to 65%, mild to moderate concentric LVH. Mild MR.
Echo 06/26/2020: TDS: EF 63%. Mild concentric LVH. No significant valvular disease
Plan:
Presents 03/26/2025 with weight gain, lower extremity edema, scrotal edema and shortness of breath
Acute on chronic heart failure with preserved ejection fraction,
-Appears acutely volume overloaded on examination although proBNP 1230. Suspect this is underestimated given patient's morbid obesity
-Ongoing IV diuresis with Lasix 40 mg twice a day
-Ongoing monitoring of renal function, currently stable with BUN 22, creatinine 0.7
-Continue carvedilol and Farxiga. Unclear why not on NANETTE-i/ARB or arni. Outpatient cardiology records have been requested
-Potassium 3.6. Did get potassium in the emergency department will replete with ongoing diuresis
-Echocardiogram as noted above with preserved ejection fraction and mild MR
-Patient still requiring supplemental oxygen, wean as tolerated
Paroxysmal atrial fibrillation
- Presented in sinus rhythm however now in atrial fibrillation with controlled ventricular response. Continue to monitor with diuresis.
- Continue Eliquis and Coreg for rate control
Known coronary artery disease with LAD LISANDRO in 2019.
-Troponin negative on admission. Patient denies chest pain
- Continue aspirin, high intensity statin, beta-lindy, Farxiga
-Lipids at goal with TC 94, HDL 43, LDL 38, triglycerides 69
Outpatient cardiology records from [facility] have been requested
Data Reviewed
-
EKG: Report Reviewed by me, Discussed with Physician and Discussed with Patient
Radiology: Report Reviewed by me, Discussed with Physician and Discussed with Patient
Labs: Labs Reviewed by me, Discussed with Physician and Discussed with Patient
Old Records: Requested (current cardiology records) and Reviewed (outpt card records from 2019)
--- NOTE | 2025-03-27 10:54 | CARDSERVLU ---
Echocardiogram with [facility]ason completed after protocol screening completed. Allergies verified.
Patent IV site: __existing site 20P LAC___
IV site flushed with 0.9% NaCl pre and post administration.
Diluted bolus method utilized to enhance visualization of ventricular nelson under direction echosonographer.
Total volume given: __2.0__ mL
Patient tolerated all procedures well without complications.
[2025-03-27] MEDS: KCL 40 MEQ PO (11:04)
[2025-03-27 11:39] LABS: Glucose - Point of Care 160 mg/dl (70-99)
--- NOTE | 2025-03-27 11:54 | WOUNDNOTE ---
[facility] RN note: Patient admitted with cellulitis of R foot, candidal intertrigo.
See H&P for complete history.
PMH: ED Past Medical History: obesity, Asthma, HTN, Hypercholesterolemia, NIDDM, [place] and Other (Psoriasis, Kidney stones, Chronic low back,)
ED Past Surgical History: Cardiac (Stent)
Wound Location and type/assessment: Patient admitted with: severe MASD in skin folds and R foot. Asked by nurse Michela to assess patient, being transferred to stretcher for a test upon assessment. Unable to take photos. Skin folds red and moist, L
groin >R, foul odor. R foot red with what appears to be a fungal rash. Fungal powder already in use for skin folds. Sacrum intact, silicone foam in use.
Appetite: Good, certified adapted physical educator on consult.
Pressure redistribution devices in place: Accumax, ambulates with assist.
Plan: Called SPD for Vashe, recommend place on gauze and soak red skin folds bid followed by dusting of fungal powder after drying area. Can place folded sheet or non woven gauze in skin folds that are moist. Recommend Nizoral cream for R foot. Will
confirm orders with hospitalist and updated nurse.
Updated care plan and will follow as needed.
Note to case management of equipment requested for discharge: TBD.
Recommend follow up with leaf sorter upon discharge.
[2025-03-27] MEDS: NOVOLOG FLEXPEN-LOW RESISTANCE 1 UNITS SC (12:14)
--- NOTE | 2025-03-27 12:55 | PTCARENOTE ---
stat orders for 40mg IV lasix. BP 106/52, HR 90s. provider notified, wants to hold off on administering dose now. will continue to monitor
--- NOTE | 2025-03-27 15:08 | W.PN.HOSP.TC ---
Today's Communication/Plan
-
IV Lasix
Echo
Continue IV antibiotics for cellulitis
Assessment / Plan
Assessment / Plan
75-year-old male with CHF, DM 2, HTN, HLD, CAD who presents with progressively worsening bilateral lower extremity edema, weight gain, and SCANLON over 2 weeks. Found to be having acute CHF exacerbation and right foot cellulitis.
#Acute on chronic congestive heart failure, with preserved ejection fraction
Follows with [facility]
Cardiology here consulted, I discussed with team
Echo performed EF 60 to 65% with indeterminate diastolic function and mild-mod concentric LVH
Continue to monitor on telemetry
Patient was inadvertently placed on oral instead of IV Lasix this morning, changed back to IV Lasix twice daily
Replete potassium to 4
Monitor daily weight and I&O, continue Garcia
O2 per protocol to maintain sat above 92%, wean off as able
Patient states his dry weight is 280 pounds
# Chronic A-fib
Continue rate control with Coreg
Continue Eliquis
#right foot cellulitis
- Continue with IV Ancef and monitor for improvement
Wound care following
#asthma
- Controlled, continue albuterol HFA and Atrovent HFA
#DM II
- Controlled
Sliding scale insulin while inpatient
-hold metformin, glipizide and pioglitazone while inpatient
Continue dapagliflozin
#hypertension
BP controlled
- continue clonidine, carvedilol, Lasix
#hyperlipidemia
#CAD
- continue aspirin and atorvastatin
DVT PPx
Eliquis
Anticipated Discharge: > 48 hours
Subjective/Interval History
-
Date of Service: March 27, 2025
Still having dyspnea on exertion after a few steps, still having orthopnea, lower extremity edema.
Objective Data
-
Labs:
Laboratory Results
03/27/25
06:28
WBC 5.4
Hgb 10.4 L
Hct 32.8 L
Plt Count 131
Sodium 143
Potassium 3.6
Chloride 109 H
Carbon Dioxide 30
BUN 22 H
Creatinine 0.7
Glucose 106 H
Calcium 8.3 L
Vital Signs:
Vital Signs
Temp Pulse Resp BP Pulse Ox
97.6 F 98 18 105/52 98
03/27/25 11:22 03/27/25 12:45 03/27/25 11:22 03/27/25 12:45 03/27/25 11:22
I&O
03/26/25 03/27/25 03/28/25
06:59 06:59 06:59
Output Total 3650 / 3650
Balance -3650 / -3650
Review of Systems
-
All other systems: Reviewed and negative
Physical Exam
-
General: Well Developed, Well Nourished, No Apparent Distress and Obese
HEENT: Moist Mucous Membranes and PERRLA
Respiratory: Crackles and Non Labored Respirations; Negative Wheezes or Rales
Cardiac: Irregular Rhythm and Murmur; Negative Rub or Gallop
GI: Soft, Nontender, Nondistended and Normal Bowel Sounds
Genito-urinary: Garcia (Clear yellow urine)
Musculoskeletal: Edema, Right Lower Extrem and Edema, Left Lower Extrem
Skin: Warm, Dry and Rash (Right foot erythema)
Neuro: Awake, AO x 3 and Nonfocal/Grossly Intact
Psych: Calm
Data Reviewed
-
Labs: Labs Reviewed by me and Discussed with Patient
[2025-03-27] MEDS: LASIX 40 MG IV (15:53)
[2025-03-27] MEDS: ULTRAM 50 MG PO (15:55)
[2025-03-27 16:38] LABS: Glucose - Point of Care 99 mg/dl (70-99)
[2025-03-27] MEDS: GLUCOPHAGE 500 MG PO (16:45)
[2025-03-27] MEDS: NIZORAL 2% CREAM 1 APPLIC TOPICAL (20:45)
[2025-03-27 21:28] LABS: Glucose - Point of Care 108 mg/dl (70-99)
[2025-03-27] MEDS: CATAPRES 0.1 MG PO (22:56)
[2025-03-27] MEDS: ATIVAN 2 MG PO (22:56)
[2025-03-28 03:00] VITALS: BP 146/69
[2025-03-28] MEDS: ANCEF 5 IV ×2 (03:00→11:56)
[2025-03-28] MEDS: FLUSH (NSS) 1 FLUSH IV ×4 (03:01→17:08)
[2025-03-28] MEDS: ULTRAM 50 MG PO ×2 (03:30→15:50)
[2025-03-28 05:47] VITALS: BMI 47.5
[2025-03-28 07:20] VITALS: BP 150/67
[2025-03-28] MEDS: NIZORAL 2% CREAM 1 APPLIC TOPICAL ×2 (07:46→20:30)
[2025-03-28] MEDS: DESENEX/MITRAZOL/ZEASORB 1 APPLIC TOPICAL ×2 (07:48→20:30)
[2025-03-28] MEDS: ASPIR LOW (ENTERIC COATED) 81 MG PO (07:49)
[2025-03-28] MEDS: LIPITOR 80 MG PO (07:49)
[2025-03-28] MEDS: FARXIGA 10 MG PO (07:49)
[2025-03-28] MEDS: GLUCOPHAGE 500 MG PO ×2 (07:49→17:09)
[2025-03-28] MEDS: PERCOCET 5/325 1 TABLET PO ×2 (07:50→20:29)
[2025-03-28] MEDS: COREG 6.25 MG PO ×2 (07:50→20:29)
[2025-03-28] MEDS: ELIQUIS 5 MG PO ×2 (07:50→20:29)
[2025-03-28] MEDS: LASIX 40 MG IV (07:50)
[2025-03-28 08:03] LABS: ALT (SGPT) 10 U/L (0-50); AST (SGOT) 18 U/L (17-59); Albumin 3.3 g/dl (3.5-5.0); Alkaline Phosphatase 82 U/L (38-126); Blood Urea Nitrogen 20 mg/dl (9-20); Calcium 8.4 mg/dl (8.4-10.2); Carbon Dioxide 30 mmol/L (22-30); Chloride 106 mmol/L (98-107); Estimated Creatinine Clearance > 125 ml/min; Glucose 73 mg/dl (70-99); Magnesium 2.2 mg/dl (1.6-2.3); Potassium 3.6 mmol/L (3.5-5.1); Sodium 142 mmol/L (135-145); Total Protein 5.5 g/dl (6.3-8.2); eGFR > 60.00
[2025-03-28 08:09] LABS: Glucose - Point of Care 84 mg/dl (70-99)
--- NOTE | 2025-03-28 08:22 | PN.DE.MGMTRT ---
Insulin Management
- -
03/28/2025: Diabetes Management Consult Follow up
Patient admitted 03/26 with swelling of bilateral legs. PMH: CHF, HTN, HLD, CAD and NIDDM, a fib, asthma, active tobacco use. Prior to admission was taking Actos 30 mg daily, Metformin 500mg daily (ordered BID), Farxiga 10mg daily and Glipizide
10mg daily. A1C is 6.2%, Cr 0.7, eGFR >60
Patient is awake, alert, out of bed in chair, offers no complains, able to discuss diabetes care plan and collaborate his OP regimen.
Sees his PCP for routine Diabetes care. States he has a working glucose monitor and has been consistently monitoring his blood sugars(90-100's)
Glucose on admission was 67, has remained low normal since admission. HS glucose was 98, experienced hypoglycemia of 60 @ 4AM, improved after treatment.
03/27 Patient received Glipizide 10 mg daily with Farxiga 10mg daily and Metformin 500mg BID.
03/28 Fasting glucose this AM 84. Glipizide reduced to 5 mg today with Farxiga and Metformin.
Discussed with nurse
Will follow.
Will not resume Actos, it is contraindicated in patient with heart failure.
Diabetes History
- -
Type of Diabetes: 2
Pre-Admission Diabetes Regimen
03/28/25
06:18
Creatinine 0.7
Lab Results
Hemoglobin A1c 6.2 % (4.0-5.6) H 03/27/25 06:28
Insulin Pump Settings
IP Diabetes Regimen
03/27/25 03/27/25 03/27/25
11:37 16:36 21:27
Glucose
POC Glucose 160 H 99 108 H
03/28/25 03/28/25
06:18 08:07
Glucose 73
POC Glucose 84
Meal type: Lunch
Amount consumed: 100%
Patient Education
[2025-03-28] MEDS: NOVOLOG FLEXPEN-LOW RESISTANCE SC ×3 (09:06→17:15)
[2025-03-28] MEDS: GLUCOTROL 5 MG PO (09:08)
--- NOTE | 2025-03-28 09:16 | W.PN.CARDCBS ---
Addendum entered and electronically signed by Chalo Xiong MD 03/28/25 17:54:
I saw and examined the patient.
The Castings Drafter's note was reviewed and I agree with the note.
Comment:
GEN: No distress, awake, Ox3
HEENT: supple, anicteric, mmm
LUNGS: scatt rhonchi
CV: irreg, S1/S2, 1/6 syst LSB, no murmur
ABD: soft, BS+, NT/ND
EXT: ++ edema
NEURO: Gross non-focal
SKIN: No rash
Plan:
Remains volume overloaded. Continue Lasix 40 mg IV twice daily. Continue Coreg and agree with adding spironolactone. Continue Farxiga.
Continue to follow blood pressure. Creatinine overall normal.
He is having paroxysms of atrial fibrillation. Continue higher dose of Coreg and follow on telemetry. Would consider cardioversion this admission or as outpatient depending on how well he diuresis.
Continue medical therapy for coronary artery disease. Continue aspirin, atorvastatin, carvedilol.
We discussed the importance of fluid restriction and CHF education
Original Note:
Today's Communication / Plan
-
Start spironolactone 12.5 mg daily
Continue with Lasix 40 mg IV BID
Impression / Plan
-
PCP: Chester Wilson
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 Almazan at [facility]
Impression:
Presents 03/26/2025 with weight gain, lower extremity edema, scrotal edema and shortness of breath
Acute on chronic HFpEF
Right foot cellulitis
Coronary artery disease
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
Status post mid LAD 3.5 x 28 mm Promus LISANDRO April 2019
Hypertension
Hyperlipidemia
Obesity
Tobacco abuse
Chronic back pain
Asthma
Paroxysmal A-fib
Chronic Eliquis OAC
Cath Apr 2019: 95% stenosis in the mid LAD between the first and second septal perforated branches, 100% chronic occlusion of the PDA, ejection fraction 55% by left ventriculography. He underwent PCI and LISANDRO of mid LAD stenosis with a 3.5 x 28 mm
Promus stent.
Echo 06/26/2020: TDS: EF 63%. Mild concentric LVH. No significant valvular disease
Echo 03/27/2025: EF 60 to 65%, mild to moderate concentric LVH. Mild MR.
Plan:
-Weight is down 7 lbs overnight with Lasix 40 mg IV BID. Patient was taking Lasix 20 mg PO daily prior to admission
-Cre stable at 0.7 on labs reviewed by me 03/28/2025
-Patient reports ongoing scrotal edema and wounds that are being managed, he says nursing is doing a great job taking care of his wounds
-EF 60 to 65% by echo 03/27/2025, report reviewed and summarized above by me
-Outpatient dose of Coreg 6.25 mg BID has been continued
-Patient is not chronically on NANETTE/ARB/ARNI/aldosterone antagonist for unclear reasons. Will start spironolactone 12.5 mg daily on 03/28/2025, orders placed by me.
-Outpatient dose of Farxiga 10 mg daily has been continued
-Patient with known history of paroxysmal A-fib, but was in SR on admission. Patient spontaneously reverted to A-fib, but denies any palpitations. Coreg has been continued as noted above. No known history of rhythm control measures, no reported
history of ablation or AAD. Will follow along and consider for possible CV prior to discharge vs eventual outpatient CV
-Outpatient dose of Eliquis 5 mg BID (age 75, Cre 0.7) has been continued
-Troponin undetectable, patient with h/o CAD, but no chest pain
-LDL 38 and outpatient dose of atorvastatin 80 mg daily has been continued.
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
Subjective
Date of Service: March 28, 2025
He complains of some pain related to edema, but denies any chest pain or palpitation
Objective
Labs:
03/28/25 06:18
Labs
Hgb 10.4 g/dL (13.0-18.0) L 03/27/25 06:28
Hct 32.8 % (39.0-52.0) L 03/27/25 06:28
Plt Count 131 10^3/uL (130-400) 03/27/25 06:28
PT 18.1 Sec (11.4-14.6) H 03/26/25 13:30
INR 1.47 03/26/25 13:30
Sodium 142 mmol/L (135-145) 03/28/25 06:18
Potassium 3.6 mmol/L (3.5-5.1) 03/28/25 06:18
BUN 20 mg/dl (9-20) 03/28/25 06:18
Creatinine 0.7 mg/dL (0.7-1.3) 03/28/25 06:18
Glucose 73 mg/dl (70-99) 03/28/25 06:18
Troponins
03/26/25
13:30
Troponin I < 0.012
Vital Signs and I&O:
Vital Signs
Temp Pulse Resp BP Pulse Ox
98.2 F 109 20 150/62 93
03/28/25 07:20 03/28/25 07:50 03/28/25 08:02 03/28/25 07:50 03/28/25 08:02
Vital Signs
Temp Pulse Resp BP Pulse Ox
98.2 F 109 20 150/62 93
03/28/25 07:20 03/28/25 07:50 03/28/25 08:02 03/28/25 07:50 03/28/25 08:02
Intake & Output
03/26/25 03/27/25 03/28/25 03/29/25
06:59 06:59 06:59 06:59
Intake Total 960 / 960
Output Total 3650 / 3650 2315 / 2315
Balance -3650 / -3650 -1355 / -1355
Physical Exam
Physical Exam
GEN: AAO x3
LUNGS: 1 L NC. No wheeze
CV: Afib on tele
EXT: +2-3 bilateral lower extremity edema
[2025-03-28 10:24] VITALS: BMI 47.5
--- NOTE | 2025-03-28 10:31 | CM ---
Spoke with patient who stated that he lives with his son in a one story apartment with 5 steps to enter. The apartment is all one floor. He described himself as independent with his bathing, dressing, ADLs and personal care but noted that a long
stay at another acute care facility rendered him weak and unable to be completely at his baseline. (In December) His son supports him in ways that he can and helps with the respiratory coordinator, cooking cleaning and laundry. Patient uses a rolling walker.
He has been to [facility] but denied that he has had any VN services.
Patient has a prescription plan and [facility], [facility].
Patient's PCP is, Chester Chang.
Patient stated that he feels that he is at his baseline level of functioning at this time and is hopeful to be able to return home with his son.
Plan: Case management will continue to follow and assist with discharge planning. Home when cleared.
--- NOTE | 2025-03-28 10:49 | HFEDUCATE ---
75yo male admitted with SOB, weight gain, bilateral LE edema and scrotal edema. Past medical history includes DM Type 2, CAD, HTN, Hyperlipidemia, obesity, tobacco abuse, HF with preserved EF, asthma, paroxysmal a-fib. Current ejection fraction by
echocardiogram is 60-65%. He lives at home with his son. He reports not following a low sodium diet or a 48oz fluid restriction per day. He does not have a scale at home.
I provided HF education and discussed the usual lifestyle recommendations. I advised he to follow a low sodium diet of 2204-7580 mg. per day, and limit it to 500-750 mg. per meal. I advised a 48oz fluid restriction per day and discussed ways to
achieve the recommendations. I also advised he weigh himself daily and to monitor for any slight weight gain. I ordered a scale for him to take home with him. I explained how to monitor for exacerbations. We discussed other alarming symptoms to
watch for and when to notify his provider. We discussed need for medications. I also advised him on smoking cessation.
Recommendations:
Continue all HF recommended medications as ordered on discharge.
Limit sodium intake to <500-750 mg per meal.
Limit fluid intake to <48 oz per day.
Daily weights and contact provider for any weight gain >3lbs in one day or 5lbs in one week.
Follow up with provider as recommended.
[2025-03-28 11:30] VITALS: BP 110/58
[2025-03-28 11:54] LABS: Glucose - Point of Care 101 mg/dl (70-99)
--- NOTE | 2025-03-28 11:56 | PTCARENOTE ---
03/28/2025
I met with patient to review diabetes management. His HbA1c is 6.2% and states he does not check his glucose at home.
States he takes Glipizde 30 minutes prior to breakfast, also takes Farxiga and Metformin but is unsure if he still takes Pioglitazone.
States he has experienced symptoms of hypoglycemia at home and drinks juice. I reinforced the importance of monitoring glucose levels, and reviewed hypoglycemia treatment protocol. I educated and reviewed using Contour Next glucometer, member
acknowledged understanding and declined the need to physically review how to check glucose. Provided patient with a Contour Next sample kit.
I educated on physiology of T2D, organ damage, managing with medications, monitoring BG, nutrition, activity, sleep and managing stress. I provided written material on the signs of hyperglycemia, hypoglycemia; BS parameters and recommended HbA1c
goals, glucometer and CGM instructions, glucose tracker, medic alert bracelet and outpatient DSME program.
Encouraged patient to follow up with his PCP for post d/c appointment and to monitor medication and blood glucose levels. Provided list of endocrinologists if desired, to contact insurance company to verify in network status. Requested
prescription sent to pharmacy for test strips and lancets for back up SMBG. Patient verbalized understanding
--- NOTE | 2025-03-28 15:26 | W.PN.HOSP.TC ---
Today's Communication/Plan
-
see bold
Assessment / Plan
Assessment / Plan
75-year-old male with CHF, DM 2, HTN, HLD, CAD who presents with progressively worsening bilateral lower extremity edema, weight gain, and SCANLON over 2 weeks. Found to be having acute CHF exacerbation and right foot cellulitis.
#Acute on chronic congestive heart failure, with preserved ejection fraction
Cardiology following here, Follows with [place] [facility] c
Echo performed EF 60 to 65% with indeterminate diastolic function and mild-mod concentric LVH
Patient states his dry weight is 280 pounds
Currently on Lasix 40 mg IV twice daily, will increase to 60 mg IV twice daily
Started on spironolactone 12.5 mg daily by cardiology
Trend creatinine, trend daily weights
#Chronic A-fib
Continue rate control with Coreg
Continue Eliquis
#Right foot cellulitis
Continue with IV Ancef with increased dose due to weight and monitor for improvement
Wound care following
#Asthma
Controlled, continue albuterol HFA and Atrovent HFA
#DM II
Controlled at 6.2
Resumed on metformin, glipizide
Permanently discontinue Actos as this is contraindicated in CHF
Continue sliding scale insulin
# Essential hypertension
BP controlled
Continue clonidine, carvedilol, Lasix
#CAD
#Hyperlipidemia
Continue aspirin and atorvastatin
#Obesity due to excess calories
Affects all aspects of care
DVT prophylaxis�Eliquis
Full code
Total time spent to see the patient on the floor, examine the patient, review data and lab results, discuss treatment plan with patient, nursing staff around 50 minutes.
Physical Exam
General: Morbidly obese, no acute distress
HEENT: Normocephalic, Atraumatic, EOMI, MMM
Respiratory: Diminished breath sounds at the bases
Cardiac: Normal S1/S2, Regular Rate and Rhythm
GI: Soft, Nontender, Nondistended, Normal Bowel Sounds
Extremities: No Clubbing, Cyanosis
3�4+ severe bilateral lower extremity edema
Right foot with erythema up to the midfoot
Neuro: Nonfocal/Grossly Intact
Psych: Calm, Cooperative
Anticipated Discharge: > 48 hours
Subjective/Interval History
-
Date of Service: March 28, 2025
SOB improved. Denies R foot pain. Denies chest pain. No fever, no vomiting.
Objective Data
-
Labs:
Laboratory Results
03/28/25
06:18
WBC Pending
Hgb Pending
Hct Pending
Plt Count Pending
Sodium 142
Potassium 3.6
Chloride 106
Carbon Dioxide 30
BUN 20
Creatinine 0.7
Glucose 73
Calcium 8.4
Total Bilirubin 0.7
AST 18
ALT 10
Alkaline Phosphatase 82
Vital Signs:
Vital Signs
Temp Pulse Resp BP Pulse Ox
98.2 F 109 20 150/62 93
03/28/25 07:20 03/28/25 07:50 03/28/25 08:02 03/28/25 07:50 03/28/25 08:02
I&O
03/27/25 03/28/25 03/29/25
06:59 06:59 06:59
Intake Total 960 / 960
Output Total 3650 / 3650 2315 / 2315
Balance -3650 / -3650 -1355 / -1355
[2025-03-28 15:53] VITALS: BP 142/66
--- NOTE | 2025-03-28 16:30 | PTCARENOTE ---
Pt AAO x3, SONI slowly; OOB to chair with assist x1/walker, tires easily. VSS. Telemetry:Afib. Maintained on nc 1 lpm- pulse ox 98%, pt with (+) SCANLON/tachypnea/orthopnea. Abd obeses, soft, guera PO; encouraging pt not to eat foods brought in from
home. Garcia P/I mod amts clear yellow urine. Resting in bed at present. Will continue to monitor.
[2025-03-28 16:35] LABS: Glucose - Point of Care 105 mg/dl (70-99)
[2025-03-28] MEDS: LASIX 60 MG IV (17:08)
[2025-03-28 19:53] VITALS: BP 117/80
[2025-03-28] MEDS: ANCEF 10 IV (20:29)
[2025-03-28 21:33] LABS: Glucose - Point of Care 122 mg/dl (70-99)
[2025-03-28] MEDS: ATIVAN 2 MG PO (22:36)
[2025-03-28] MEDS: CATAPRES 0.1 MG PO (22:37)
[2025-03-28 22:50] VITALS: BP 147/67
[2025-03-29] VITALS (7 sets, daily range): BP systolic 113–137; BP diastolic 48–80; O2SAT 96; BMI 47.0
[2025-03-29] MEDS: ANCEF 10 IV ×3 (03:10→20:41)
[2025-03-29 07:34] LABS: Glucose - Point of Care 90 mg/dl (70-99)
--- NOTE | 2025-03-29 07:58 | PN.DE.MGMTRT ---
Insulin Management
- -
03/29/2025: Diabetes Management Consult Follow up
Patient admitted 03/26 with swelling of bilateral legs. PMH: CHF, HTN, HLD, CAD and NIDDM, a fib, asthma, active tobacco use. Prior to admission was taking Actos 30 mg daily, Metformin 500mg daily (ordered BID), Farxiga 10mg daily and Glipizide
10mg daily. A1C is 6.2%, Cr 0.7, eGFR >60
Patient is awake, alert, out of bed in chair, offers no complains, able to discuss diabetes care plan and collaborate his OP regimen.
Sees his PCP for routine Diabetes care. States he has a working glucose monitor and has been consistently monitoring his blood sugars(90-100's)
Glucose on admission was 67, has remained low normal since admission.
03/28 Fasting glucose this AM 84. Glipizide reduced to 5 mg today with Farxiga and Metformin.
03/29 Patients appetite poor to fair, per nursing patient only took liquids at dinner time yesterday. Fasting glucose 90 this AM. Will make no change to glipizide 5 mg daily with Farxiga 10 mg daily and metformin 500 mg BID.
Discussed with nurse
Will follow.
Will not resume Actos, it is contraindicated in patient with heart failure.
Diabetes History
- -
Type of Diabetes: 2
Pre-Admission Diabetes Regimen
03/28/25
06:18
Creatinine 0.7
Lab Results
Hemoglobin A1c 6.2 % (4.0-5.6) H 03/27/25 06:28
Insulin Pump Settings
IP Diabetes Regimen
03/28/25 03/28/25 03/28/25
06:18 08:07 11:53
Glucose 73
POC Glucose 84 101 H
03/28/25 03/28/25 03/29/25
16:34 21:32 07:33
Glucose
POC Glucose 105 H 122 H 90
Meal type: Dinner
Meal type: Lunch
Meal type: Breakfast
Amount consumed: 100%
Amount consumed: Patient refused
Amount consumed: 100%
Patient Education
[2025-03-29 08:07] LABS: Blood Urea Nitrogen 22 mg/dl (9-20); Calcium 8.7 mg/dl (8.4-10.2); Carbon Dioxide 33 mmol/L (22-30); Chloride 104 mmol/L (98-107); Estimated Creatinine Clearance > 125 ml/min; Glucose 82 mg/dl (70-99); Magnesium 2.2 mg/dl (1.6-2.3); Potassium 3.5 mmol/L (3.5-5.1); Sodium 141 mmol/L (135-145); eGFR > 60.00
[2025-03-29] MEDS: NOVOLOG FLEXPEN-LOW RESISTANCE SC ×3 (08:13→16:59)
--- NOTE | 2025-03-29 08:53 | W.PN.HOSP.TC ---
Today's Communication/Plan
-
see bold
Assessment / Plan
Assessment / Plan
75-year-old male with CHF, DM 2, HTN, HLD, CAD who presents with progressively worsening bilateral lower extremity edema, weight gain, and SCANLON over 2 weeks. Found to be having acute CHF exacerbation and right foot cellulitis.
#Acute on chronic congestive heart failure, with preserved ejection fraction
Cardiology following here, follows with [place] [facility]
Echo performed EF 60 to 65% with indeterminate diastolic function and mild-mod concentric LVH
Patient states his dry weight is 280 pounds
Currently on Lasix 60 mg IV twice daily, started on spironolactone 12.5 mg daily by cardiology
Also started on Farxiga for GDMT
Trend creatinine, trend daily weights
#Acute urinary retention
Likely due to BPH
Start Flomax, maintain Garcia during hospitalization for MASD
Needs to remove Garcia for void trial on the day of discharge
#Chronic A-fib
Continue rate control with Coreg
Continue Eliquis
#Right foot cellulitis
Continue with IV Ancef with increased dose due to weight and monitor for improvement
Wound care following
#Weakness
PT recommends short-term rehab, patient declines
#Asthma
Controlled, continue albuterol HFA and Atrovent HFA
#DM II
Controlled at 6.2
Resumed on metformin, glipizide, started on farxiga
Permanently discontinue Actos as this is contraindicated in CHF
Continue sliding scale insulin
# Essential hypertension
BP controlled
Continue clonidine, carvedilol, Lasix
#CAD
#Hyperlipidemia
Continue aspirin and atorvastatin
#Obesity due to excess calories
Affects all aspects of care
DVT prophylaxis�Eliquis
Full code
Total time spent to see the patient on the floor, examine the patient, review data and lab results, discuss treatment plan with patient, nursing staff around 40 minutes.
Physical Exam
General: Morbidly obese, no acute distress
HEENT: Normocephalic, Atraumatic, EOMI, MMM
Respiratory: Diminished breath sounds at the bases
Cardiac: Normal S1/S2, Regular Rate and Rhythm
GI: Soft, Nontender, Nondistended, Normal Bowel Sounds
Extremities: No Clubbing, Cyanosis
3�4+ severe bilateral lower extremity edema, improving from admission
Right foot with erythema up to the midfoot
Neuro: Nonfocal/Grossly Intact
Psych: Calm, Cooperative
Anticipated Discharge: > 48 hours
Subjective/Interval History
-
Date of Service: March 29, 2025
Patient reports feeling weak and tired after working with PT. He reports his shortness of breath has improved. He is constipated. No chest pain. No fever, no vomiting.
Objective Data
-
Labs:
Laboratory Results
03/29/25
07:07
Sodium 141
Potassium 3.5
Chloride 104
Carbon Dioxide 33 H
BUN 22 H
Creatinine 0.6 L
Glucose 82
Calcium 8.7
Vital Signs:
Vital Signs
Temp Pulse Resp BP Pulse Ox
98 F 83 22 128/52 96
03/29/25 07:13 03/29/25 07:22 03/29/25 07:22 03/29/25 07:13 03/29/25 07:22
I&O
03/28/25 03/29/25 03/30/25
06:59 06:59 06:59
Intake Total 960 / 960 960 / 960
Output Total 5 / 2315 2024
Balance -1355 / -1355 -1065 / -1065
[2025-03-29] MEDS: FLOMAX 0.4 MG PO (09:19)
[2025-03-29] MEDS: KCL 40 MEQ PO (09:20)
[2025-03-29] MEDS: PERCOCET 5/325 1 TABLET PO ×2 (09:20→20:02)
[2025-03-29] MEDS: ALDACTONE 12.5 MG PO (09:25)
[2025-03-29] MEDS: GLUCOTROL 5 MG PO (09:25)
[2025-03-29] MEDS: ASPIR LOW (ENTERIC COATED) 81 MG PO (09:26)
[2025-03-29] MEDS: ELIQUIS 5 MG PO ×2 (09:26→20:01)
[2025-03-29] MEDS: GLUCOPHAGE 500 MG PO ×2 (09:26→16:08)
[2025-03-29] MEDS: LIPITOR 80 MG PO (09:26)
[2025-03-29] MEDS: FARXIGA 10 MG PO (09:26)
[2025-03-29] MEDS: LASIX 60 MG IV ×2 (09:27→16:09)
[2025-03-29] MEDS: COREG 6.25 MG PO ×2 (09:27→20:00)
[2025-03-29] MEDS: NIZORAL 2% CREAM 1 APPLIC TOPICAL ×2 (09:27→20:41)
[2025-03-29] MEDS: DESENEX/MITRAZOL/ZEASORB 1 APPLIC TOPICAL ×2 (09:28→20:02)
--- NOTE | 2025-03-29 11:34 | W.PN.CARDCBS ---
Addendum entered and electronically signed by Jeevan Eastman MD 03/29/25 13:42:
I saw and examined the patient.
The DIRECTOR COMMUNITY CENTER or PA's note was reviewed and I agree with the note.
Comment: General: Well developed, well nourished in NAD.
Neck: Supple, no JVD, HJR, carotids +2 B/L, no bruits bilaterally.
Heart: Non displaced PMI, RRR, no murmurs, No S3, S4, no rubs.
Lungs: Scattered rhonchi
Extremities: No clubbing, cyanosis or edema bilaterally.
Neuro: Grossly nonfocal, awake, alert and oriented x3.
Weight down to 299. Reportedly he was 290 pounds as dry weight. Diuresis has slowed down. May need to consider increasing Lasix 80 mg IV twice daily if no significant diuresis today.
Original Note:
Today's Communication / Plan
-
Cont Lasix 40 mg IV BID, if no big drop in weight again then would increase Lasix to 80 mg IV BID tomorrow
Impression / Plan
-
PCP: Chester Wilson
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 Xiong, now follows with Dr. Almazan at [facility]
Impression:
Presents 03/26/2025 with weight gain, lower extremity edema, scrotal edema and shortness of breath
Acute on chronic HFpEF
Right foot cellulitis
Coronary artery disease
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
Status post mid LAD 3.5 x 28 mm Promus LISANDRO April 2019
Hypertension
Hyperlipidemia
Obesity
Tobacco abuse
Chronic back pain
Asthma
Paroxysmal A-fib
Chronic Eliquis OAC
Cath Apr 2019: 95% stenosis in the mid LAD between the first and second septal perforated branches, 100% chronic occlusion of the PDA, ejection fraction 55% by left ventriculography. He underwent PCI and LISANDRO of mid LAD stenosis with a 3.5 x 28 mm
Promus stent.
Echo 06/26/2020: TDS: EF 63%. Mild concentric LVH. No significant valvular disease
Echo 03/27/2025: EF 60 to 65%, mild to moderate concentric LVH. Mild MR.
Plan:
-Weight is down 4 lbs overnight with Lasix 40 mg IV BID. Patient was taking Lasix 20 mg PO daily prior to admission
-Cre stable at 0.7 on labs reviewed by me 03/28/2025
-Oxygenation improved and now on RA. Ongoing scrotal edema.
-EF 60 to 65% by echo 03/27/2025.
-Outpatient dose of Coreg 6.25 mg BID has been continued
-Patient is not chronically on NANETTE/ARB/ARNI/aldosterone antagonist for unclear reasons.
-New to spironolactone 12.5 mg daily this admission
-Outpatient dose of Farxiga 10 mg daily has been continued
-Patient with known history of paroxysmal A-fib, but was in SR on admission and then spontaneously reverted to A-fib. Asymptomatic with no palpitations. Coreg has been continued as noted above. No known history of rhythm control measures, no
reported history of ablation or AAD. Will follow along and consider for possible CV prior to discharge vs eventual outpatient CV
-Outpatient dose of Eliquis 5 mg BID (age 75, Cre 0.7) has been continued
-Troponin undetectable, patient with h/o CAD, but no chest pain
-LDL 38 and outpatient dose of atorvastatin 80 mg daily has been continued.
Progress Note - Instant Potato Processor
Subjective
Date of Service: March 29, 2025
Tired, he didn't sleep well
Objective
Labs:
03/28/25 06:18
03/29/25 07:07
Labs
Hgb Cancelled 03/28/25 06:18
Hct Cancelled 03/28/25 06:18
Plt Count Cancelled 03/28/25 06:18
PT 18.1 Sec (11.4-14.6) H 03/26/25 13:30
INR 1.47 03/26/25 13:30
Sodium 141 mmol/L (135-145) 03/29/25 07:07
Potassium 3.5 mmol/L (3.5-5.1) 03/29/25 07:07
BUN 22 mg/dl (9-20) H 03/29/25 07:07
Creatinine 0.6 mg/dL (0.7-1.3) L 03/29/25 07:07
Glucose 82 mg/dl (70-99) 03/29/25 07:07
Troponins
03/26/25
13:30
Troponin I < 0.012
Vital Signs and I&O:
Vital Signs
Temp Pulse Resp BP Pulse Ox
98 F 81 18 131/50 97
03/29/25 07:13 03/29/25 11:27 03/29/25 11:27 03/29/25 09:25 03/29/25 11:27
Vital Signs
Temp Pulse Resp BP Pulse Ox
98 F 81 18 131/50 97
03/29/25 07:13 03/29/25 11:27 03/29/25 11:27 03/29/25 09:25 03/29/25 11:27
Intake & Output
03/27/25 03/28/25 03/29/25 03/30/25
06:59 06:59 06:59 06:59
Intake Total 960 / 960 960 / 960
Output Total 3650 / 3650 2315 / 2315 2024 / 2024
Balance -3650 / -3650 -1355 / -1355 -1065 / -1065
Physical Exam
Physical Exam
GEN: AAO x3
LUNGS: RA. No wheeze
CV: Afib on tele
EXT: +2 bilateral lower extremity edema
[2025-03-29] MEDS: SENOKOT-S 2 TABLET PO ×2 (11:36→20:01)
[2025-03-29] MEDS: MIRALAX 17 GRAMS PO (11:37)
[2025-03-29 12:09] LABS: Glucose - Point of Care 124 mg/dl (70-99)
--- NOTE | 2025-03-29 14:47 | CM ---
CM following re: discharge planning.
Reviewed pt's chart, met with pt.
PT and OT evaluations noted - SNF level of care recommended. Pt is aware, strongly declined SNF level of care stating he has 'a horrible experience being at a SNF before'. Pt made it very clear he will return back home at discharge. pt stated he
lives with son in a 2SH and he stays on the first floor. Pt reports he is current with [facility] for RN, PT, OT and pt is requested to resume [facility] services at discharge. CM explained to the pt benefits of SNF level of care and pt
strongly declined it.
[facility] phone number: [phone];
Please fax discharge instructions to [facility] at [phone]
D/C plan: per pt's request, home with [facility] and family support. Pt stated his son will transport home.
CM will follow with discharge plan updates as hospitalization progresses
[2025-03-29 16:57] LABS: Glucose - Point of Care 95 mg/dl (70-99)
[2025-03-29] MEDS: ULTRAM 50 MG PO (18:15)
[2025-03-29 21:54] LABS: Glucose - Point of Care 102 mg/dl (70-99)
[2025-03-29] MEDS: ATIVAN 2 MG PO (22:25)
[2025-03-29] MEDS: CATAPRES 0.1 MG PO (22:25)
[2025-03-30 03:25] VITALS: BP 104/52
[2025-03-30] MEDS: ANCEF 10 IV ×3 (04:09→21:37)
[2025-03-30] MEDS: ULTRAM 50 MG PO ×2 (04:09→17:00)
[2025-03-30 04:44] LABS: Glucose - Point of Care 86 mg/dl (70-99)
[2025-03-30 05:59] VITALS: BMI 46.8
[2025-03-30 06:25] LABS: Blood Urea Nitrogen 21 mg/dl (9-20); Calcium 8.8 mg/dl (8.4-10.2); Carbon Dioxide 36 mmol/L (22-30); Chloride 101 mmol/L (98-107); Estimated Creatinine Clearance > 125 ml/min; Glucose 87 mg/dl (70-99); Potassium 3.4 mmol/L (3.5-5.1); Sodium 142 mmol/L (135-145); eGFR > 60.00
[2025-03-30 07:00] VITALS: BP 117/75
--- NOTE | 2025-03-30 07:07 | PN.DE.MGMTRT ---
Insulin Management
- -
03/30/2025: Diabetes Management Consult Follow up
Patient admitted 03/26 with swelling of bilateral legs. PMH: CHF, HTN, HLD, CAD and NIDDM, a fib, asthma, active tobacco use. Prior to admission was taking Actos 30 mg daily, Metformin 500mg daily (ordered BID), Farxiga 10mg daily and Glipizide
10mg daily. A1C is 6.2%, Cr 0.7, eGFR >60
Patient is awake, alert, out of bed in chair, offers no complains, able to discuss diabetes care plan.
Sees his PCP for routine Diabetes care. States he has a working glucose monitor and has been consistently monitoring his blood sugars(90-100's)
Glucose on admission was 67, has remained low normal since admission.
03/29 Patients appetite poor to fair, per nursing patient only took liquids at dinner time yesterday. Fasting glucose 90 this AM. No change to glipizide 5 mg daily with Farxiga 10 mg daily and metformin 500 mg BID.
03/30 Glucose remains stable 90 to 124. Will continue current regimen.
Discussed with nurse
Will follow.
Will not resume Actos, it is contraindicated in patient with heart failure.
Diabetes History
- -
Type of Diabetes: 2
Pre-Admission Diabetes Regimen
03/29/25 03/30/25
07:07 05:42
Creatinine 0.6 L 0.6 L
Lab Results
Hemoglobin A1c 6.2 % (4.0-5.6) H 03/27/25 06:28
Insulin Pump Settings
IP Diabetes Regimen
03/29/25 03/29/25 03/29/25
07:07 07:33 12:08
Glucose 82
POC Glucose 90 124 H
03/29/25 03/29/25 03/30/25
16:50 21:52 04:43
Glucose
POC Glucose 95 102 H 86
03/30/25
05:42
Glucose 87
POC Glucose
Meal type: Breakfast
Amount consumed: 90%
Patient Education
[2025-03-30 08:11] LABS: Glucose - Point of Care 93 mg/dl (70-99)
--- NOTE | 2025-03-30 09:26 | W.PN.HOSP.TC ---
Today's Communication/Plan
-
see bold
Assessment / Plan
Assessment / Plan
75-year-old male with CHF, DM 2, HTN, HLD, CAD who presents with progressively worsening bilateral lower extremity edema, weight gain, and SCANLON over 2 weeks. Found to be having acute CHF exacerbation and right foot cellulitis.
#Acute on chronic congestive heart failure, with preserved ejection fraction
Cardiology following here, follows with [place] [facility], reports a dry weight of 280 pounds
Echo performed EF 60 to 65% with indeterminate diastolic function and mild-mod concentric LVH
Patient states his dry weight is 280 pounds
Lasix increased to 80 mg IV twice daily, started on spironolactone 12.5 mg daily by cardiology
Also started on Farxiga for GDMT
Trend creatinine, trend daily weights
#Acute urinary retention
Likely due to BPH
Started Flomax, maintain Garcia during hospitalization for MASD
Needs to remove Garcia for void trial on the day of discharge
#Hypokalemia
Replete, recheck a.m. labs
#Chronic A-fib
Continue rate control with Coreg
Continue Eliquis
#Right foot cellulitis
Continue with IV Ancef with increased dose due to weight and monitor for improvement
Wound care following
#Weakness
PT recommends short-term rehab, patient declines
#Asthma
Controlled, continue albuterol HFA and Atrovent HFA
#DM II
Controlled at 6.2
Resumed on metformin, glipizide, started on farxiga
Permanently discontinue Actos as this is contraindicated in CHF
Continue sliding scale insulin
# Essential hypertension
BP controlled
Continue clonidine, carvedilol, Lasix
#CAD
#Hyperlipidemia
Continue aspirin and atorvastatin
#Obesity due to excess calories
Affects all aspects of care
DVT prophylaxis�Eliquis
Full code
Total time spent to see the patient on the floor, examine the patient, review data and lab results, discuss treatment plan with patient, nursing staff around 38 minutes.
Physical Exam
General: Morbidly obese, no acute distress
HEENT: Normocephalic, Atraumatic, EOMI, MMM
Respiratory: Diminished breath sounds at the bases
Cardiac: Normal S1/S2, Regular Rate and Rhythm
GI: Soft, Nontender, Nondistended, Normal Bowel Sounds
Extremities: No Clubbing, Cyanosis
3�4+ severe bilateral lower extremity edema, improving from admission
Right foot with erythema up to the midfoot
Neuro: Nonfocal/Grossly Intact
Psych: Calm, Cooperative
Anticipated Discharge: > 48 hours
Subjective/Interval History
-
Date of Service: March 30, 2025
Breathing continues to improve. Reports feeling weak and tired. No fever, no chest pain. No vomiting.
Objective Data
-
Labs:
Laboratory Results
03/30/25
05:42
Sodium 142
Potassium 3.4 L
Chloride 101
Carbon Dioxide 36 H
BUN 21 H
Creatinine 0.6 L
Glucose 87
Calcium 8.8
Vital Signs:
Vital Signs
Temp Pulse Resp BP Pulse Ox
97.8 F 69 22 117/75 96
03/30/25 07:00 03/30/25 07:00 03/30/25 07:00 03/30/25 07:00 03/30/25 07:00
I&O
03/29/25 03/30/25 03/31/25
06:59 06:59 06:59
Intake Total 960 / 960 760 / 760
Output Total 2024 2350 / 2350
Balance -1065 / -1065 -1590 / -1590
[2025-03-30] MEDS: NOVOLOG FLEXPEN-LOW RESISTANCE SC ×3 (09:35→18:22)
[2025-03-30] MEDS: MIRALAX 17 GRAMS PO (09:42)
[2025-03-30] MEDS: GLUCOTROL 5 MG PO (09:44)
[2025-03-30] MEDS: GLUCOPHAGE 500 MG PO ×2 (09:44→16:57)
[2025-03-30] MEDS: COREG 6.25 MG PO ×2 (09:44→19:24)
[2025-03-30] MEDS: FLOMAX 0.4 MG PO (09:44)
[2025-03-30] MEDS: FARXIGA 10 MG PO (09:44)
[2025-03-30] MEDS: ALDACTONE 12.5 MG PO (09:44)
[2025-03-30] MEDS: LIPITOR 80 MG PO (09:44)
[2025-03-30] MEDS: SENOKOT-S 2 TABLET PO ×2 (09:44→19:24)
[2025-03-30] MEDS: KCL 40 MEQ PO ×2 (09:44→16:55)
[2025-03-30] MEDS: ASPIR LOW (ENTERIC COATED) 81 MG PO (09:44)
[2025-03-30] MEDS: ELIQUIS 5 MG PO ×2 (09:44→19:24)
[2025-03-30] MEDS: DESENEX/MITRAZOL/ZEASORB 1 APPLIC TOPICAL ×2 (09:45→19:24)
[2025-03-30] MEDS: NIZORAL 2% CREAM 1 APPLIC TOPICAL ×2 (09:45→19:25)
[2025-03-30] MEDS: LASIX IV (09:47)
[2025-03-30] MEDS: PERCOCET 5/325 1 TABLET PO ×2 (09:47→19:25)
[2025-03-30] MEDS: LASIX 80 MG IV ×2 (09:49→16:57)
--- NOTE | 2025-03-30 10:47 | PTCARENOTE ---
Attempted to wean off oxygen. Room air sats 88-89% at rest. Placed back on 1L.
[2025-03-30 11:00] VITALS: BP 132/56
--- NOTE | 2025-03-30 11:35 | W.PN.CARDCBS ---
Addendum entered and electronically signed by Frankie Nieves MD 03/30/25 13:14:
I saw and examined the patient.
The Client Server Developer's note was reviewed and I agree with the note.
Comment: 75 yo M PMHx HFpEF presents in decompensated HF
Remains volume overloaded on exam
Increase lasix to 80mg BID
Cr stable
Replete K
Wean O2 as able
Follow daily weights
Cont aldactone and SGLT2
Original Note:
Today's Communication / Plan
-
Still evidence of volume overload increase IV Lasix to 80 mg twice daily
Aggressive repletion of potassium
Start oral potassium daily
Back in sinus rhythm, continue Eliquis
Wean oxygen as able
Impression / Plan
-
PCP: Chester Wilson
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 Xiong, now follows with Dr. Almazan at [facility]
Impression:
Presents 03/26/2025 with weight gain, lower extremity edema, scrotal edema and shortness of breath
Acute on chronic HFpEF
Right foot cellulitis
Coronary artery disease
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
Status post mid LAD 3.5 x 28 mm Promus LISANDRO April 2019
Hypertension
Hyperlipidemia
Obesity
Tobacco abuse
Chronic back pain
Asthma
Paroxysmal A-fib
Chronic Eliquis OAC
Cath Apr 2019: 95% stenosis in the mid LAD between the first and second septal perforated branches, 100% chronic occlusion of the PDA, ejection fraction 55% by left ventriculography. He underwent PCI and LISANDRO of mid LAD stenosis with a 3.5 x 28 mm
Promus stent.
Echo 06/26/2020: TDS: EF 63%. Mild concentric LVH. No significant valvular disease
Echo 03/27/2025: EF 60 to 65%, mild to moderate concentric LVH. Mild MR.
Plan:
Presented 03/26/2025 with weight gain, lower extremity edema, scrotal edema and shortness of breath and found to have acute heart failure with proBNP 1230
-Weight is down 22 lbs since admission with ongoing diuresis. Still evidence of volume overload on examination. Increased Lasix to 80 mg IV BID. {Patient was taking Lasix 20 mg PO daily prior to admission}
-Cre stable at 0.6 on labs reviewed by me 03/30/2025
-Potassium 3.4 will replete with ongoing diuresis, will give 40 mill equivalent now, another 40 later this evening and start 40 mEq in a.m.
-Oxygenation improved, still occasionally requiring a liter.
-EF 60 to 65% by echo 03/27/2025.
-Outpatient dose of Coreg 6.25 mg BID has been continued
-Patient is not chronically on NANETTE/ARB/ARNI/aldosterone antagonist for unclear reasons.
-New to spironolactone 12.5 mg daily this admission
-Outpatient dose of Farxiga 10 mg daily has been continued
-Patient with known history of paroxysmal A-fib, but was in SR on admission and then spontaneously reverted to A-fib. Per review of telemetry patient back in sinus rhythm 03/30/2025
-Outpatient dose of Eliquis 5 mg BID (age 75, Cre 0.7) has been continued
-Troponin undetectable, patient with h/o CAD, but no chest pain
-LDL 38 and outpatient dose of atorvastatin 80 mg daily has been continued.
HPI 03/27/2025:
Patient is a 75-year-old male with past medical history for coronary artery disease, type 2 diabetes, hypertension, hyperlipidemia, tobacco abuse, obesity, heart failure with preserved ejection fraction, chronic back pain and asthma. Patient was
previously followed by Dr. Xiong and was last seen in cardiology office in 2019 now reporting he follows with [facility] Dr. Almazan. He reports he was told by their office yesterday to go to the hospital and he has had bad
experiences at [facility] so he came to [place].
He presents to emergency department 03/26/2025 with weight gain, bilateral lower extremity edema, scrotal edema and shortness of breath. Chest x-ray with Mild prominence of the pulmonary vasculature suggestive of mild vascular congestion. No focal
airspace disease. No large pleural effusion. proBNP of 1230, troponin undetectable. EKG initially showed sinus rhythm however upon further review now appears patient is in atrial fibrillation with controlled ventricular response. Patient was given
60 mg IV Lasix in emergency department. Patient reports he has had good urination and feels less short of breath sitting in bed. He denies chest pain, palpitations, dizziness, lightheadedness
Progress Note - Primer Inserting Machine Adjuster
Subjective
Date of Service: March 30, 2025
Objective
Labs:
03/28/25 06:18
03/30/25 05:42
Labs
Hgb Cancelled 03/28/25 06:18
Hct Cancelled 03/28/25 06:18
Plt Count Cancelled 03/28/25 06:18
PT 18.1 Sec (11.4-14.6) H 03/26/25 13:30
INR 1.47 03/26/25 13:30
Sodium 142 mmol/L (135-145) 03/30/25 05:42
Potassium 3.4 mmol/L (3.5-5.1) L 03/30/25 05:42
BUN 21 mg/dl (9-20) H 03/30/25 05:42
Creatinine 0.6 mg/dL (0.7-1.3) L 03/30/25 05:42
Glucose 87 mg/dl (70-99) 03/30/25 05:42
Vital Signs and I&O:
Vital Signs
Temp Pulse Resp BP Pulse Ox
97.8 F 69 22 117/75 96
03/30/25 07:00 03/30/25 07:00 03/30/25 07:00 03/30/25 07:00 03/30/25 07:00
Vital Signs
Temp Pulse Resp BP Pulse Ox
97.8 F 69 22 117/75 96
03/30/25 07:00 03/30/25 07:00 03/30/25 07:00 03/30/25 07:00 03/30/25 07:00
Intake & Output
03/28/25 03/29/25 03/30/25 03/31/25
06:59 06:59 06:59 06:59
Intake Total 960 / 960 960 / 960 760 / 760
Output Total 2315 / 2315 2024 / 2024 235 / 235
Balance -1355 / -1355 -1065 / -1065 -1590 / -1590
Physical Exam
Physical Exam
GEN: No distress, awake, Ox3, sitting in bed on oxygen
HEENT: supple, anicteric, mmm
LUNGS: Decreased breath sounds at bases bilaterally otherwise CTA, no wheezes/rales; wearing 3 L of oxygen via nasal cannula
CV: Distant heart tones regular, S1/S2, no murmur, rub or gallop,
ABD: Obese, mild distention, BS+, NT/ND
EXT: +2 bilateral lower extremity edema
NEURO: Gross non-focal
SKIN: No rash, warm, dry, pink
[2025-03-30 11:53] LABS: Glucose - Point of Care 81 mg/dl (70-99)
[2025-03-30] MEDS: KCL ELIXIR 40 MEQ PO (13:51)
[2025-03-30 15:00] VITALS: BP 138/51
[2025-03-30 17:07] LABS: Glucose - Point of Care 88 mg/dl (70-99)
[2025-03-30 19:22] VITALS: BP 129/62
[2025-03-30] MEDS: CATAPRES 0.1 MG PO (21:37)
[2025-03-30] MEDS: ATIVAN 2 MG PO (21:37)
[2025-03-30 21:43] LABS: Glucose - Point of Care 107 mg/dl (70-99)
[2025-03-30 23:56] VITALS: BP 129/62
[2025-03-31 03:41] VITALS: BP 110/54
[2025-03-31] MEDS: ANCEF 10 IV ×3 (04:58→19:44)
[2025-03-31 06:00] VITALS: BMI 45.6
[2025-03-31 07:00] VITALS: BP 119/53
[2025-03-31 07:21] LABS: Blood Urea Nitrogen 24 mg/dl (9-20); Calcium 9.0 mg/dl (8.4-10.2); Carbon Dioxide 38 mmol/L (22-30); Chloride 100 mmol/L (98-107); Estimated Creatinine Clearance 123 ml/min; Glucose 96 mg/dl (70-99); Potassium 4.1 mmol/L (3.5-5.1); Sodium 142 mmol/L (135-145); eGFR > 60.00
[2025-03-31] MEDS: SENOKOT-S PO (08:00)
[2025-03-31] MEDS: MIRALAX PO (08:00)
[2025-03-31] MEDS: NIZORAL 2% CREAM 1 APPLIC TOPICAL ×2 (08:01→19:45)
[2025-03-31] MEDS: DESENEX/MITRAZOL/ZEASORB 1 APPLIC TOPICAL ×2 (08:01→19:45)
[2025-03-31] MEDS: LASIX 80 MG IV ×2 (08:01→16:55)
[2025-03-31] MEDS: FLUSH (NSS) 1 FLUSH IV ×3 (08:02→16:56)
[2025-03-31] MEDS: LIPITOR 80 MG PO (08:03)
[2025-03-31] MEDS: KCL 40 MEQ PO (08:03)
[2025-03-31] MEDS: GLUCOPHAGE 500 MG PO ×2 (08:03→17:55)
[2025-03-31] MEDS: ASPIR LOW (ENTERIC COATED) 81 MG PO (08:04)
[2025-03-31] MEDS: ELIQUIS 5 MG PO ×2 (08:04→19:45)
[2025-03-31] MEDS: FLOMAX 0.4 MG PO (08:04)
[2025-03-31] MEDS: GLUCOTROL 5 MG PO (08:04)
[2025-03-31] MEDS: FARXIGA 10 MG PO (08:04)
[2025-03-31] MEDS: COREG 6.25 MG PO ×2 (08:04→19:45)
[2025-03-31] MEDS: ALDACTONE 12.5 MG PO (08:04)
[2025-03-31] MEDS: PERCOCET 5/325 1 TABLET PO ×2 (08:04→19:44)
[2025-03-31] MEDS: NOVOLOG FLEXPEN-LOW RESISTANCE SC ×3 (08:19→17:54)
--- NOTE | 2025-03-31 08:35 | W.PN.HOSP.TC ---
Today's Communication/Plan
-
see bold
Assessment / Plan
Assessment / Plan
75-year-old male with CHF, DM 2, HTN, HLD, CAD who presents with progressively worsening bilateral lower extremity edema, weight gain, and SCANLON over 2 weeks. Found to be having acute CHF exacerbation and right foot cellulitis.
#Acute on chronic congestive heart failure, with preserved ejection fraction
Cardiology following here, follows with [place] [facility], reports a dry weight of 280 pounds
Echo performed EF 60 to 65% with indeterminate diastolic function and mild-mod concentric LVH
Patient states his dry weight is 280 pounds
Lasix increased to 80 mg IV twice daily, started on spironolactone 12.5 mg daily by cardiology
Also started on Farxiga for GDMT
Trend creatinine, trend daily weights
#Acute urinary retention
Likely due to BPH
Started Flomax, maintain Garcia during hospitalization for MASD
Needs to remove Garcia for void trial on the day of discharge
#Hypokalemia
Repleted and resolved
#Chronic A-fib
Continue rate control with Coreg
Continue Eliquis
#Right foot cellulitis
Continue with IV Ancef with increased dose due to weight and monitor for improvement
Wound care following
#Weakness
PT recommends short-term rehab, patient declines
#Asthma
Controlled, continue albuterol HFA and Atrovent HFA
#DM II
Controlled at 6.2
Resumed on metformin, glipizide, started on farxiga
Permanently discontinue Actos as this is contraindicated in CHF
Continue sliding scale insulin
# Essential hypertension
BP controlled
Continue clonidine, carvedilol, Lasix
#CAD
#Hyperlipidemia
Continue aspirin and atorvastatin
#Obesity due to excess calories
Affects all aspects of care
DVT prophylaxis�Eliquis
Full code
Total time spent to see the patient on the floor, examine the patient, review data and lab results, discuss treatment plan with patient, nursing staff around 36 minutes.
Physical Exam
General: Morbidly obese, no acute distress
HEENT: Normocephalic, Atraumatic, EOMI, MMM
Respiratory: Diminished breath sounds at the bases
Cardiac: Normal S1/S2, Regular Rate and Rhythm
GI: Soft, Nontender, Nondistended, Normal Bowel Sounds
Extremities: No Clubbing, Cyanosis
3�4+ severe bilateral lower extremity edema, improving from admission
Right foot with erythema up to the midfoot
Neuro: Nonfocal/Grossly Intact
Psych: Calm, Cooperative
Anticipated Discharge: > 48 hours
Subjective/Interval History
-
Date of Service: March 31, 2025
Patient denies shortness of breath at rest. He does have mild dyspnea with activity, overall improved. No chest pain. No fever, no vomiting.
Objective Data
-
Labs:
Laboratory Results
03/31/25
06:11
Sodium 142
Potassium 4.1
Chloride 100
Carbon Dioxide 38 H
BUN 24 H
Creatinine 0.7
Glucose 96
Calcium 9.0
Vital Signs:
Vital Signs
Temp Pulse Resp BP Pulse Ox
97.7 F 68 18 118/53 95
03/31/25 03:41 03/31/25 08:04 03/31/25 07:49 03/31/25 08:04 03/31/25 07:49
I&O
03/30/25 03/31/25 04/01/25
06:59 06:59 06:59
Intake Total 760 / 760 880 / 880
Output Total 2350 / 2350 3850 / 3850
Balance -1590 / -1590 -2970 / -2970
[2025-03-31 08:56] LABS: Glucose - Point of Care 99 mg/dl (70-99)
[2025-03-31 11:00] VITALS: BP 121/57
[2025-03-31 11:43] LABS: Glucose - Point of Care 74 mg/dl (70-99)
--- NOTE | 2025-03-31 13:37 | W.PN.CARDCBS ---
Today's Communication / Plan
-
Continue diuresis with intravenous Lasix
Needs continued physical therapy for deconditioning
Impression / Plan
-
PCP: Chester Wilson
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 Xiong, now follows with Dr. Almazan at [facility]
Impression:
Presents 03/26/2025 with weight gain, lower extremity edema, scrotal edema and shortness of breath
Acute on chronic HFpEF
Right foot cellulitis
Coronary artery disease
BEND UP of PDA on cath 2018
Status post mid LAD 3.5 x 28 mm Promus LISANDRO April 2019
Hypertension
Hyperlipidemia
Obesity
Tobacco abuse
Chronic back pain
Asthma
Paroxysmal A-fib
Chronic Eliquis OAC
Cath Apr 2019: 95% stenosis in the mid LAD between the first and second septal perforated branches, 100% chronic occlusion of the PDA, ejection fraction 55% by left ventriculography. He underwent PCI and LISANDRO of mid LAD stenosis with a 3.5 x 28 mm
Promus stent.
Echo 06/26/2020: TDS: EF 63%. Mild concentric LVH. No significant valvular disease
Echo 03/27/2025: EF 60 to 65%, mild to moderate concentric LVH. Mild MR.
Plan:
Acute decompensated on chronic heart failure with preserved ejection fraction
Diuretic regimen has been increased, currently on Lasix 80 mg IV twice daily {Patient was taking Lasix 20 mg PO daily prior to admission}
Overall clinically improving with diuresis. He is symptomatically improved.
Weight is down 7 pounds over past 24 hours. His weight is down to 290 pounds. His dry weight has been reported to be around 280 pounds.
Renal function stable, potassium 4.1. Blood pressure stable
Continue with current diuretic regimen of Lasix 80 mg IV twice a day
As an outpatient he would likely benefit from a higher standing dose of Lasix {Patient was taking Lasix 20 mg PO daily prior to admission}
Maintained spironolactone 12.5 mg daily which was started this admission, tolerating well
Maintain Farxiga 10 mg daily
Paroxysmal atrial fibrillation
Continue carvedilol 6.25 mg p.o. twice daily for rate control
Maintain Eliquis 5 mg twice daily for atrial fibrillation related thromboembolic risk reduction, tolerating well with no major bleeding complications.
Known coronary artery disease but without unstable symptoms this admission. Troponin undetectable.
Maintain atorvastatin 80 mg daily. LDL is 38.
Deconditioning
Needs PT
HPI 03/27/2025:
Patient is a 75-year-old male with past medical history for coronary artery disease, type 2 diabetes, hypertension, hyperlipidemia, tobacco abuse, obesity, heart failure with preserved ejection fraction, chronic back pain and asthma. Patient was
previously followed by Dr. Xiong and was last seen in cardiology office in 2019 now reporting he follows with [facility] asst Dr. Almazan. He reports he was told by their office yesterday to go to the hospital and he has had bad
experiences at [facility] so he came to [place].
He presents to emergency department 03/26/2025 with weight gain, bilateral lower extremity edema, scrotal edema and shortness of breath. Chest x-ray with Mild prominence of the pulmonary vasculature suggestive of mild vascular congestion. No focal
airspace disease. No large pleural effusion. proBNP of 1230, troponin undetectable. EKG initially showed sinus rhythm however upon further review now appears patient is in atrial fibrillation with controlled ventricular response. Patient was given
60 mg IV Lasix in emergency department. Patient reports he has had good urination and feels less short of breath sitting in bed. He denies chest pain, palpitations, dizziness, lightheadedness
Progress Note - Supervisor Wet Room
Subjective
Date of Service: March 31, 2025
He tells me that his breathing is improved. He is no longer having a cough.
He is concerned about being physically deconditioned.
Objective
Labs:
03/28/25 06:18
03/31/25 06:11
Labs
Hgb Cancelled 03/28/25 06:18
Hct Cancelled 03/28/25 06:18
Plt Count Cancelled 03/28/25 06:18
PT 18.1 Sec (11.4-14.6) H 03/26/25 13:30
INR 1.47 03/26/25 13:30
Sodium 142 mmol/L (135-145) 03/31/25 06:11
Potassium 4.1 mmol/L (3.5-5.1) 03/31/25 06:11
BUN 24 mg/dl (9-20) H 03/31/25 06:11
Creatinine 0.7 mg/dL (0.7-1.3) 03/31/25 06:11
Glucose 96 mg/dl (70-99) 03/31/25 06:11
Vital Signs and I&O:
Vital Signs
Temp Pulse Resp BP Pulse Ox
97.6 F 60 16 121/57 97
03/31/25 11:00 03/31/25 11:03 03/31/25 11:03 03/31/25 11:00 03/31/25 11:44
Vital Signs
Temp Pulse Resp BP Pulse Ox
97.6 F 60 16 121/57 97
03/31/25 11:00 03/31/25 11:03 03/31/25 11:03 03/31/25 11:00 03/31/25 11:44
Intake & Output
03/29/25 03/30/25 03/31/25 04/01/25
06:59 06:59 06:59 06:59
Intake Total 960 / 960 760 / 760 880 / 880
Output Total 2024 2350 / 2350 3850 / 3850
Balance -1065 / -1065 -1590 / -1590 -2970 / -2970
Physical Exam
Physical Exam
Elderly gentleman no acute distress sitting up in bed. Morbidly obese.
Regular rate and rhythm with normal S1 and S2, no S3 no S4 degree 1/6 apical holosystolic murmur no rubs. PMI is normally placed
Lungs clear to auscultation bilaterally without wheezes rales or rhonchi
Abdomen soft nontender nondistended with normal active bowel
Extremities show +2 pitting pretibial edema bilaterally
[2025-03-31] MEDS: MIRALAX 17 GRAMS PO (13:45)
[2025-03-31 15:00] VITALS: BP 131/54
[2025-03-31] MEDS: ULTRAM 50 MG PO (15:21)
--- NOTE | 2025-03-31 16:52 | PTCARENOTE ---
Pt AAO x3, SONI; OOB to chair for approx 1/2 hr with much encouragement; pt stated he would rather stay in bed. Importance of OOB activity re-inforced with pt. Pt c/o pain in legs; good effect with prn Ultram. VSS. On nc 1 lpm- pulse ox 95%, pt
with (+) SCANLON/tachypnea; occ dry cough. Abd obeses, soft, guera PO,appetite good. Garcia P/I large amts clear yellow urine. Resting in bed at present. Will continue to monitor.
[2025-03-31 16:53] LABS: Glucose - Point of Care 133 mg/dl (70-99)
[2025-03-31] MEDS: SENOKOT-S 2 TABLET PO (19:45)
[2025-03-31 21:42] LABS: Glucose - Point of Care 128 mg/dl (70-99)
[2025-03-31] MEDS: CATAPRES 0.1 MG PO (22:28)
[2025-03-31] MEDS: ATIVAN 2 MG PO (22:28)
[2025-03-31 23:16] VITALS: BP 103/61
[2025-04-01] MEDS: ANCEF 10 IV (05:00)
[2025-04-01 05:30] VITALS: BMI 44.9
--- NOTE | 2025-04-01 06:22 | PTCARENOTE ---
pt curry was yellow at started of shift; however this am urine is bloody. --informed DIRECTOR OF GLOBAL TALENT Sugar Casanova
[2025-04-01 07:05] VITALS: BP 96/41
[2025-04-01 07:16] LABS: Glucose - Point of Care 106 mg/dl (70-99)
[2025-04-01] MEDS: NOVOLOG FLEXPEN-LOW RESISTANCE SC ×3 (07:18→17:12)
[2025-04-01 08:20] LABS: Hematocrit 34.5 % (39.0-52.0); Hemoglobin 10.9 g/dL (13.0-18.0); Mean Corp Hgb Conc. 31.6 g/dL (33.0-37.0); Mean Corpuscular Volume 103.3 fL (80.0-94.0); Platelet Count 119 10^3/uL (130-400); Red Cell Dist. Width 14.7 % (11.5-14.5)
[2025-04-01 08:31] LABS: Blood Urea Nitrogen 24 mg/dl (9-20); Calcium 8.7 mg/dl (8.4-10.2); Carbon Dioxide 35 mmol/L (22-30); Chloride 98 mmol/L (98-107); Estimated Creatinine Clearance > 125 ml/min; Glucose 104 mg/dl (70-99); Potassium 3.7 mmol/L (3.5-5.1); Sodium 141 mmol/L (135-145); eGFR > 60.00
[2025-04-01] MEDS: LASIX 80 MG IV ×2 (08:47→16:08)
[2025-04-01] MEDS: KCL 40 MEQ PO ×2 (08:48→16:07)
[2025-04-01] MEDS: GLUCOTROL 5 MG PO (08:48)
[2025-04-01] MEDS: FARXIGA 10 MG PO (08:49)
[2025-04-01] MEDS: PERCOCET 5/325 1 TABLET PO ×2 (08:49→20:55)
[2025-04-01] MEDS: FLOMAX 0.4 MG PO (08:49)
[2025-04-01] MEDS: LIPITOR 80 MG PO (08:49)
[2025-04-01] MEDS: ALDACTONE 12.5 MG PO (08:49)
[2025-04-01] MEDS: SENOKOT-S 2 TABLET PO ×2 (08:49→20:55)
[2025-04-01] MEDS: ASPIR LOW (ENTERIC COATED) 81 MG PO (08:49)
[2025-04-01] MEDS: GLUCOPHAGE 500 MG PO ×2 (08:50→17:11)
[2025-04-01] MEDS: ELIQUIS 5 MG PO ×2 (08:50→20:54)
[2025-04-01] MEDS: COREG 6.25 MG PO ×2 (08:50→20:55)
[2025-04-01] MEDS: NIZORAL 2% CREAM 1 APPLIC TOPICAL ×2 (08:51→21:03)
[2025-04-01] MEDS: DESENEX/MITRAZOL/ZEASORB 1 APPLIC TOPICAL ×2 (08:51→21:02)
[2025-04-01] MEDS: MIRALAX 17 GRAMS PO (09:06)
--- NOTE | 2025-04-01 09:16 | W.PN.HOSP.TC ---
Today's Communication/Plan
-
see bold
Assessment / Plan
Assessment / Plan
75-year-old male with CHF, DM 2, HTN, HLD, CAD who presents with progressively worsening bilateral lower extremity edema, weight gain, and SCANLON over 2 weeks. Found to be having acute CHF exacerbation and right foot cellulitis.
#Acute on chronic congestive heart failure, with preserved ejection fraction
Cardiology following here, follows with [facility], reports a dry weight of 280 pounds
Echo performed EF 60 to 65% with indeterminate diastolic function and mild-mod concentric LVH
Patient states his dry weight is 280 pounds, currently at 285.7 pounds today, down from 319 pounds upon admission
Lasix increased to 80 mg IV twice daily, started on spironolactone 12.5 mg daily by cardiology
Also started on Farxiga for GDMT
Trend creatinine, trend daily weights
#Acute urinary retention
Likely due to BPH
Started Flomax, maintain Garcia during hospitalization for MASD
Needs to remove Garcia for void trial on the day of discharge
#Constipation
Continue laxatives, add magnesium citrate
#Hypokalemia
Repleted and resolved
#Chronic A-fib
Continue rate control with Coreg
Continue Eliquis
#Right foot cellulitis
Change IV Ancef to Keflex D7/10 to complete a 10-day course
Wound care following
#Weakness
PT recommends short-term rehab, patient declines
#Asthma
Controlled, continue albuterol HFA and Atrovent HFA
#DM II
Controlled at 6.2
Resumed on metformin, glipizide, started on farxiga
Permanently discontinue Actos as this is contraindicated in CHF
Continue sliding scale insulin
# Essential hypertension
BP controlled
Continue clonidine, carvedilol, Lasix
#CAD
#Hyperlipidemia
Continue aspirin and atorvastatin
#Obesity due to excess calories
Affects all aspects of care
DVT prophylaxis�Eliquis
Full code
Total time spent to see the patient on the floor, examine the patient, review data and lab results, discuss treatment plan with patient, nursing staff around 38 minutes.
Physical Exam
General: Morbidly obese, no acute distress
HEENT: Normocephalic, Atraumatic, EOMI, MMM
Respiratory: Diminished breath sounds at the bases
Cardiac: Normal S1/S2, Regular Rate and Rhythm
GI: Soft, Nontender, Nondistended, Normal Bowel Sounds
Extremities: No Clubbing, Cyanosis
3�4+ severe bilateral lower extremity edema, improving from admission
Right foot with erythema up to the midfoot
Neuro: Nonfocal/Grossly Intact
Psych: Calm, Cooperative
Anticipated Discharge: 24 - 48 hours
Subjective/Interval History
-
Date of Service: April 01, 2025
Patient reports feeling weak and tired. He also complains of constipation. His dyspnea with activity has resolved. No shortness of breath at rest. No chest pain. No fever, no vomiting.
Objective Data
-
Labs:
Laboratory Results
04/01/25
06:54
WBC 5.2
Hgb 10.9 L
Hct 34.5 L
Plt Count 119 L
Sodium 141
Potassium 3.7
Chloride 98
Carbon Dioxide 35 H
BUN 24 H
Creatinine 0.6 L
Glucose 104 H
Calcium 8.7
Vital Signs:
Vital Signs
Temp Pulse Resp BP Pulse Ox
97.5 F 69 18 132/59 97
04/01/25 07:05 04/01/25 08:49 04/01/25 07:45 04/01/25 08:49 04/01/25 07:45
I&O
03/31/25 04/01/25 04/02/25
06:59 06:59 06:59
Intake Total 880 / 880 1620 / 1620
Output Total 3850 / 3850 3225 / 3225
Balance -2970 / -2970 -1605 / -1605
--- NOTE | 2025-04-01 10:41 | W.PN.CARDCBS ---
Today's Communication / Plan
-
Continue Lasix.
He is requesting more information regarding discharge planning particularly given that he lives alone.
Impression / Plan
-
PCP: Chester Wilson
Instant Powder Supervisor: Previously followed by Dr. Xiong, now follows with Dr. Almazan at [facility]
Impression:
Presents 03/26/2025 with weight gain, lower extremity edema, scrotal edema and shortness of breath
Acute on chronic HFpEF
Right foot cellulitis
Coronary artery disease
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
Status post mid LAD 3.5 x 28 mm Promus LISANDRO April 2019
Hypertension
Hyperlipidemia
Obesity
Tobacco abuse
Chronic back pain
Asthma
Paroxysmal A-fib
Chronic Eliquis OAC
Cath Apr 2019: 95% stenosis in the mid LAD between the first and second septal perforated branches, 100% chronic occlusion of the PDA, ejection fraction 55% by left ventriculography. He underwent PCI and LISANDRO of mid LAD stenosis with a 3.5 x 28 mm
Promus stent.
Echo 06/26/2020: TDS: EF 63%. Mild concentric LVH. No significant valvular disease
Echo 03/27/2025: EF 60 to 65%, mild to moderate concentric LVH. Mild MR.
Plan:
Acute decompensated on chronic heart failure with preserved ejection fraction
Diuretic regimen has been increased, currently on Lasix 80 mg IV twice daily {Patient was taking Lasix 20 mg PO daily prior to admission}
Overall clinically improving with diuresis. He is symptomatically improved.
Weight is down 4 pounds pounds over past 24 hours. His weight is down to 286 pounds. His dry weight has been reported to be around 280 pounds.
Fluid balance is -1600 mL overnight
Renal function stable with creatinine of 0.6, potassium 3.7 (will replete potassium and aim for potassium between 4 and 5). Blood pressure stable
Continue with current diuretic regimen of Lasix 80 mg IV twice a day
As an outpatient he would likely benefit from a higher standing dose of Lasix {Patient was taking Lasix 20 mg PO daily prior to admission}
Maintain spironolactone 12.5 mg daily which was started this admission, tolerating well
Maintain Farxiga 10 mg daily
Paroxysmal atrial fibrillation
In sinus rhythm.
Continue carvedilol 6.25 mg p.o. twice daily for rate control
Maintain Eliquis 5 mg twice daily for atrial fibrillation related thromboembolic risk reduction, tolerating well with no major bleeding complications.
Known coronary artery disease but without unstable symptoms this admission. Troponin undetectable.
Maintain atorvastatin 80 mg daily. LDL is 38.
Deconditioning
Needs PT
He is also requesting that some sort of home services can be set up for him at discharge.
[facility] 03/27/2025:
Patient is a 75-year-old male with past medical history for coronary artery disease, type 2 diabetes, hypertension, hyperlipidemia, tobacco abuse, obesity, heart failure with preserved ejection fraction, chronic back pain and asthma. Patient was
previously followed by Dr. Xiong and was last seen in cardiology office in 2019 now reporting he follows with [facility] medical director occupational health Dr. Almazan. He reports he was told by their office yesterday to go to the hospital and he has had bad
experiences at [facility] so he came to [facility].
He presents to emergency department 03/26/2025 with weight gain, bilateral lower extremity edema, scrotal edema and shortness of breath. Chest x-ray with Mild prominence of the pulmonary vasculature suggestive of mild vascular congestion. No focal
airspace disease. No large pleural effusion. proBNP of 1230, troponin undetectable. EKG initially showed sinus rhythm however upon further review now appears patient is in atrial fibrillation with controlled ventricular response. Patient was given
60 mg IV Lasix in emergency department. Patient reports he has had good urination and feels less short of breath sitting in bed. He denies chest pain, palpitations, dizziness, lightheadedness
Progress Note - Instant Powder Supervisor
Subjective
Date of Service: April 01, 2025
He tells me that his breathing is slightly better. He feels he is still a bit volume overloaded. His biggest concern is how he is going to manage when he eats he is discharged to home as he lives by himself.
Objective
Labs:
04/01/25 06:54
04/01/25 06:54
Labs
Hgb 10.9 g/dL (13.0-18.0) L 04/01/25 06:54
Hct 34.5 % (39.0-52.0) L 04/01/25 06:54
Plt Count 119 10^3/uL (130-400) L 04/01/25 06:54
PT 18.1 Sec (11.4-14.6) H 03/26/25 13:30
INR 1.47 03/26/25 13:30
Sodium 141 mmol/L (135-145) 04/01/25 06:54
Potassium 3.7 mmol/L (3.5-5.1) 04/01/25 06:54
BUN 24 mg/dl (9-20) H 04/01/25 06:54
Creatinine 0.6 mg/dL (0.7-1.3) L 04/01/25 06:54
Glucose 104 mg/dl (70-99) H 04/01/25 06:54
Vital Signs and I&O:
Vital Signs
Temp Pulse Resp BP Pulse Ox
97.5 F 69 18 132/59 97
04/01/25 07:05 04/01/25 08:49 04/01/25 07:45 04/01/25 08:49 04/01/25 07:45
Vital Signs
Temp Pulse Resp BP Pulse Ox
97.5 F 69 18 132/59 97
04/01/25 07:05 04/01/25 08:49 04/01/25 07:45 04/01/25 08:49 04/01/25 07:45
Intake & Output
07/1803/31/25 04/01/25 04/02/25
06:59 06:59 06:59 06:59
Intake Total 760 / 760 880 / 880 1620 / 1620
Output Total 2350 / 2350 3850 / 3850 3225 / 3225
Balance -1590 / -1590 -2970 / -2970 -1605 / -1605
Physical Exam
Physical Exam
Elderly gentleman no acute distress sitting up in bed. Morbidly obese.
Regular rate and rhythm with normal S1 and S2, no S3 no S4 degree 1/6 apical holosystolic murmur no rubs. PMI is normally placed
Lungs clear to auscultation bilaterally without wheezes rales or rhonchi
Abdomen soft nontender nondistended with normal active bowel
Extremities show +2 pitting pretibial edema bilaterally
[2025-04-01 11:28] LABS: Glucose - Point of Care 81 mg/dl (70-99)
[2025-04-01] MEDS: CITROMA 300 ML PO (12:25)
[2025-04-01] MEDS: KEFLEX 1000 MG PO ×3 (12:25→21:00)
[2025-04-01 15:05] VITALS: BP 144/89
[2025-04-01 17:02] LABS: Glucose - Point of Care 101 mg/dl (70-99)
[2025-04-01] MEDS: ATIVAN 2 MG PO (21:00)
[2025-04-01] MEDS: CATAPRES 0.1 MG PO (21:00)
[2025-04-01 21:15] LABS: Glucose - Point of Care 122 mg/dl (70-99)
[2025-04-01 23:26] VITALS: BP 110/46
[2025-04-02 06:00] VITALS: BMI 44.3
[2025-04-02 07:00] VITALS: BP 134/59
--- NOTE | 2025-04-02 07:44 | PN.DE.MGMTRT ---
Insulin Management
- -
04/02/2025: Diabetes Management Consult Follow up
Patient admitted 03/26 with swelling of bilateral legs. PMH: CHF, HTN, HLD, CAD and NIDDM, a fib, asthma, active tobacco use. Prior to admission was taking Actos 30 mg daily, Metformin 500mg daily (ordered BID), Farxiga 10mg daily and Glipizide
10mg daily. A1C is 6.2%, Cr 0.7, eGFR >60
Patient is awake, alert, out of bed in chair, offers no complains, able to discuss diabetes care plan.
Sees his PCP for routine Diabetes care. States he has a working glucose monitor and has been consistently monitoring his blood sugars(90-100's)
Glucose on admission was 67, has remained low normal since admission.
04/01 Glucose remains stable 81 to 122.
04/02 Will continue current regimen glipizide 5 mg daily with Farxiga 10 mg daily and metformin 500 mg BID.
Discussed with nurse
Will follow.
Will not resume Actos, it is contraindicated in patient with heart failure.
Diabetes History
- -
Type of Diabetes: 2
Pre-Admission Diabetes Regimen
04/01/25
06:54
Creatinine 0.6 L
Lab Results
Hemoglobin A1c 6.2 % (4.0-5.6) H 03/27/25 06:28
Insulin Pump Settings
IP Diabetes Regimen
04/01/25 04/01/25 04/01/25
06:54 11:27 17:01
Glucose 104 H
POC Glucose 81 101 H
04/01/25
21:14
Glucose
POC Glucose 122 H
Meal type: Lunch
Meal type: Breakfast
Amount consumed: 100%
Amount consumed: 100%
Patient Education
[2025-04-02 08:22] LABS: Glucose - Point of Care 86 mg/dl (70-99)
[2025-04-02 08:34] LABS: Hematocrit 37.7 % (39.0-52.0); Hemoglobin 11.8 g/dL (13.0-18.0); Mean Corp Hgb Conc. 31.3 g/dL (33.0-37.0); Mean Corpuscular Volume 102.4 fL (80.0-94.0); Platelet Count 135 10^3/uL (130-400); Red Cell Dist. Width 14.6 % (11.5-14.5)
[2025-04-02] MEDS: NOVOLOG FLEXPEN-LOW RESISTANCE SC ×3 (08:36→16:29)
[2025-04-02 09:03] LABS: Blood Urea Nitrogen 24 mg/dl (9-20); Calcium 9.0 mg/dl (8.4-10.2); Carbon Dioxide 40 mmol/L (22-30); Chloride 98 mmol/L (98-107); Estimated Creatinine Clearance > 125 ml/min; Glucose 125 mg/dl (70-99); Potassium 3.8 mmol/L (3.5-5.1); Sodium 141 mmol/L (135-145); eGFR > 60.00
[2025-04-02] MEDS: PERCOCET 5/325 1 TABLET PO ×2 (09:25→21:24)
[2025-04-02] MEDS: SENOKOT-S PO (09:26)
[2025-04-02] MEDS: MIRALAX PO (09:26)
[2025-04-02] MEDS: DESENEX/MITRAZOL/ZEASORB 1 APPLIC TOPICAL ×2 (09:27→21:26)
[2025-04-02] MEDS: NIZORAL 2% CREAM 1 APPLIC TOPICAL ×2 (09:27→21:27)
[2025-04-02] MEDS: ALDACTONE 12.5 MG PO (09:28)
[2025-04-02] MEDS: LASIX 80 MG IV ×2 (09:28→15:04)
[2025-04-02] MEDS: GLUCOTROL 5 MG PO (09:28)
[2025-04-02] MEDS: KEFLEX 1000 MG PO ×4 (09:29→21:24)
[2025-04-02] MEDS: FARXIGA 10 MG PO (09:30)
[2025-04-02] MEDS: KCL 40 MEQ PO (09:30)
[2025-04-02] MEDS: GLUCOPHAGE 500 MG PO ×2 (09:30→16:59)
[2025-04-02] MEDS: ASPIR LOW (ENTERIC COATED) 81 MG PO (09:30)
[2025-04-02] MEDS: FLOMAX 0.4 MG PO (09:30)
[2025-04-02] MEDS: LIPITOR 80 MG PO (09:31)
[2025-04-02] MEDS: ELIQUIS 5 MG PO ×2 (09:31→21:24)
[2025-04-02] MEDS: COREG 6.25 MG PO ×2 (09:31→21:25)
--- NOTE | 2025-04-02 11:15 | W.PN.HOSP.TC ---
Today's Communication/Plan
-
Await cardiology input
Assessment / Plan
Assessment / Plan
Gen-AAOx3, NAD, morbid obesity
HEENT-NC, AT, anicteric, clear oral mm
Neck-supple
CV-reg, no M, +S1/S2
Lungs-clear B/L
Abd-soft, NT, ND
Ext-bilateral lower extremity edema
Musculoskeletal-no cyanosis, clubbing
Skin-warm and dry
Neuro-grossly non-focal
Psych-calm, cooperative
Acute on chronic congestive heart failure, with preserved ejection fraction
Cardiology following here, follows with [facility], reports a dry weight of 280 pounds
Echo performed EF 60 to 65% with indeterminate diastolic function and mild-mod concentric LVH
Patient states his dry weight is 280 pounds, currently at 285.7 pounds today, down from 319 pounds upon admission
Lasix increased to 80 mg IV twice daily, started on spironolactone 12.5 mg daily by cardiology
Also started on Farxiga for GDMT
Trend creatinine, trend daily weights
Now has contraction alkalosis, bicarb 40. Can switch to oral Lasix if okay with cardiology.
Acute urinary retention
Likely due to BPH
Started Flomax, maintain Garcia during hospitalization for MASD
Needs to remove Garcia for void trial on the day of discharge
Constipation
Continue laxatives, add magnesium citrate
Hypokalemia
Repleted and resolved
Chronic A-fib
Continue rate control with Coreg
Continue Eliquis
Right foot cellulitis
Day 6 of 7 for antibiotics.
Weakness
PT recommends short-term rehab, patient declines
Asthma
Controlled, continue albuterol HFA and Atrovent HFA
DM 2 without hyperglycemia
Controlled at 6.2
Resumed on metformin, glipizide, started on farxiga
Permanently discontinue Actos as this is contraindicated in CHF
Continue sliding scale insulin
Essential hypertension
BP controlled
Continue clonidine, carvedilol, Lasix
CAD
Hyperlipidemia
Continue aspirin and atorvastatin
Obesity due to excess calories
Affects all aspects of care
DVT prophylaxis�Eliquis
Full code
Dispo -discharge when cleared by cardiology. Patient not interested in SNF.
Anticipated Discharge: Within 24 hours
Subjective/Interval History
-
Date of Service: April 02, 2025
Patient seen and examined. No complaints.
Objective Data
-
Labs:
Laboratory Results
04/02/25
08:19
WBC 6.1
Hgb 11.8 L
Hct 37.7 L
Plt Count 135
Sodium 141
Potassium 3.8
Chloride 98
Carbon Dioxide 40 H
BUN 24 H
Creatinine 0.6 L
Glucose 125 H
Calcium 9.0
Vital Signs:
Vital Signs
Temp Pulse Resp BP Pulse Ox
97.5 F 72 18 106/60 93
04/02/25 07:00 04/02/25 09:31 04/02/25 07:39 04/02/25 09:31 04/02/25 07:39
I&O
04/01/25 04/02/25 04/03/25
06:59 06:59 06:59
Intake Total 1620 / 1620 776 / 776
Output Total 3225 / 3225 3000 / 3000
Balance -1605 / -1605 -2224 / -2224
Review of Systems
-
History Source: Patient
All other systems: Reviewed and negative
[2025-04-02 11:33] LABS: Glucose - Point of Care 98 mg/dl (70-99)
--- NOTE | 2025-04-02 11:50 | WOUNDNOTE ---
WON RN NOTE: Followed up today regarding fungal rash. Groin skin folds and R foot fungal rash resolved. No more redness and weeping of either area. R foot with residual dry flaky skin, applied Vaseline today. Recommend discontinue Vashe to skin
folds but continue fungal powder as ordered. Will order mineral oil for R foot daily starting tomorrow. Patient able to turn to side, sacrum intact, buttocks blanchable red, is on an air overlay with adequate inflation. Pressure ulcer prevention
measures reviewed with patient, encouraged turning. Heels assessed under foams and are intact. Pillow in use under calves. Will confirm orders with hospitalist, update wound care and sign off.
--- NOTE | 2025-04-02 12:07 | W.PN.CARDCBS ---
Addendum entered and electronically signed by Yifan Smith DO 04/02/25 13:38:
I saw and examined the patient.
The Ota's note was reviewed and I agree with the note.
Comment:
Plan:
Cont IV lasix another 24 hrs then likely transition to oral lasix next 24 hrs
Likely d/c on higher dose of lasix.
Cont to wean O2 as able.
Cont Eliquis
Cont Coreg
PT eval.
Original Note:
Today's Communication / Plan
-
Continue IV diuresis for another 24 hours then consider transitioning to oral Lasix
Would discharge home on higher dose of Lasix
Wean oxygen
Replete potassium
Continue Eliquis, atorvastatin, carvedilol, Farxiga and Aldactone
Impression / Plan
-
PCP: Chester Wilson
Plant Tour Guide: Previously followed by Dr. Xiong, now follows with Dr. Almazan at [facility]
Impression:
Presented 03/26/2025 with weight gain, lower extremity edema, scrotal edema and shortness of breath
Acute on chronic HFpEF
Right foot cellulitis
Coronary artery disease
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
Status post mid LAD 3.5 x 28 mm Promus LISANDRO April 2019
Hypertension
Hyperlipidemia
Obesity
Tobacco abuse
Chronic back pain
Asthma
Paroxysmal A-fib
Chronic Eliquis OAC
Cath Apr 2019: 95% stenosis in the mid LAD between the first and second septal perforated branches, 100% chronic occlusion of the PDA, ejection fraction 55% by left ventriculography. He underwent PCI and LISANDRO of mid LAD stenosis with a 3.5 x 28 mm
Promus stent.
Echo 06/26/2020: TDS: EF 63%. Mild concentric LVH. No significant valvular disease
Echo 03/27/2025: EF 60 to 65%, mild to moderate concentric LVH. Mild MR.
Plan:
Presented 03/26/2025 with weight gain, lower extremity edema, scrotal edema and shortness of breath
Acute decompensated on chronic heart failure with preserved ejection fraction
Diuretic regimen has been increased, currently on Lasix 80 mg IV twice daily {Patient was taking Lasix 20 mg PO daily prior to admission}
Overall clinically improving with diuresis. He is symptomatically improved.
Weight is down 4 pounds pounds over past 24 hours. His weight is down to at least 26 lbs to 282 pounds. His dry weight has been reported to be around 280 pounds.
Renal function stable with creatinine of 0.6, potassium 3.8 (will replete potassium and aim for potassium between 4 and 5). Given additional 20 mEq this evening
Still on 1 L of oxygen via nasal cannula
Blood pressure stable
Continue with current diuretic regimen of Lasix 80 mg IV twice a day for another 24-48 hours then consider transition to oral Lasix
As an outpatient he would benefit from a higher standing dose of Lasix such at 80 mg daily. {Patient was taking Lasix 20 mg PO daily prior to admission}
Maintain spironolactone 12.5 mg daily which was started this admission, tolerating well
Maintain Farxiga 10 mg daily
Paroxysmal atrial fibrillation
In sinus rhythm when on telemetry, currently off
Continue carvedilol 6.25 mg p.o. twice daily for rate control
Maintain Eliquis 5 mg twice daily for atrial fibrillation related thromboembolic risk reduction, tolerating well with no major bleeding complications.
Known coronary artery disease but without unstable symptoms this admission. Troponin undetectable.
Maintain atorvastatin 80 mg daily. LDL is 38.
Deconditioning, Needs PT. Ideally would benefit from skilled rehab. Patient absolutely refusing.
He is also requesting that some sort of home services can be set up for him at discharge. He has been followed by Amy MANRIQUE in past.
HPI 03/27/2025:
Patient is a 75-year-old male with past medical history for coronary artery disease, type 2 diabetes, hypertension, hyperlipidemia, tobacco abuse, obesity, heart failure with preserved ejection fraction, chronic back pain and asthma. Patient was
previously followed by Dr. Xiong and was last seen in cardiology office in 2019 now reporting he follows with [place] medical dosimetrist Dr. Almazan. He reports he was told by their office yesterday to go to the hospital and he has had bad
experiences at [facility] so he came to [place].
He presents to emergency department 03/26/2025 with weight gain, bilateral lower extremity edema, scrotal edema and shortness of breath. Chest x-ray with Mild prominence of the pulmonary vasculature suggestive of mild vascular congestion. No focal
airspace disease. No large pleural effusion. proBNP of 1230, troponin undetectable. EKG initially showed sinus rhythm however upon further review now appears patient is in atrial fibrillation with controlled ventricular response. Patient was given
60 mg IV Lasix in emergency department. Patient reports he has had good urination and feels less short of breath sitting in bed. He denies chest pain, palpitations, dizziness, lightheadedness
Progress Note - Plant Tour Guide
Subjective
Date of Service: April 02, 2025
Patient seen and examined. Patient sitting in bed. Still on low-flow oxygen but symptomatically improving
Objective
Labs:
04/02/25 08:19
04/02/25 08:19
Labs
Hgb 11.8 g/dL (13.0-18.0) L 04/02/25 08:19
Hct 37.7 % (39.0-52.0) L 04/02/25 08:19
Plt Count 135 10^3/uL (130-400) 04/02/25 08:19
PT 18.1 Sec (11.4-14.6) H 03/26/25 13:30
INR 1.47 03/26/25 13:30
Sodium 141 mmol/L (135-145) 04/02/25 08:19
Potassium 3.8 mmol/L (3.5-5.1) 04/02/25 08:19
BUN 24 mg/dl (9-20) H 04/02/25 08:19
Creatinine 0.6 mg/dL (0.7-1.3) L 04/02/25 08:19
Glucose 125 mg/dl (70-99) H 04/02/25 08:19
Vital Signs and I&O:
Vital Signs
Temp Pulse Resp BP Pulse Ox
97.5 F 62 18 106/60 95
04/02/25 07:00 04/02/25 11:58 04/02/25 11:58 04/02/25 09:31 04/02/25 11:58
Vital Signs
Temp Pulse Resp BP Pulse Ox
97.5 F 62 18 106/60 95
04/02/25 07:00 04/02/25 11:58 04/02/25 11:58 04/02/25 09:31 04/02/25 11:58
Intake & Output
03/31/25 04/01/25 04/02/25 04/03/25
06:59 06:59 06:59 06:59
Intake Total 880 / 880 1620 / 1620 776 / 776
Output Total 3850 / 3850 3225 / 3225 3000 / 3000
Balance -2970 / -2970 -1605 / -1605 -2224 / -2224
Physical Exam
Physical Exam
GEN: No distress, awake, Ox3, obese male, sitting in bed on oxygen
HEENT: supple, anicteric, mmm
LUNGS: CTA, no wheezes/rales; wearing 1 L of oxygen via nasal cannula
CV: Distant heart tones regular, S1/S2, no murmur, rub or gallop,
ABD: Obese, mild distention, BS+, NT/ND
EXT: Trace bilateral lower extremity edema, no clubbing or cyanosis
NEURO: Gross non-focal
SKIN: No rash, warm, dry, pink
[2025-04-02] MEDS: ULTRAM 50 MG PO (14:02)
[2025-04-02 14:55] VITALS: BP 129/56; PULSE 66; O2SAT 94
[2025-04-02 14:56] VITALS: BP 129/56; PULSE 64; O2SAT 96
[2025-04-02 15:00] VITALS: BP 129/56
[2025-04-02 16:20] LABS: Glucose - Point of Care 133 mg/dl (70-99)
--- NOTE | 2025-04-02 16:36 | CM ---
Pt weaned off oxygen Pox 95%.
Spoke with patient in room.Reviewed with PT eval which is SNF.
Pt refused SNF.
PT recommended a Wheelchair to enter home.PT said Pt received walker from Medicare recently and would not qualify.
Reviewed above with son Ananth . Son said he will look for a wheelchair that is sturdy for pts stature.
Continues on IV Lasix.
Prior CM had [facility] in note . Will look for referral.
PLAN Home with VN
[2025-04-02] MEDS: KCL 20 MEQ PO (17:00)
[2025-04-02] MEDS: SENOKOT-S 2 TABLET PO (21:24)
[2025-04-02] MEDS: CATAPRES 0.1 MG PO (21:25)
[2025-04-02] MEDS: ATIVAN 2 MG PO (21:25)
[2025-04-02 21:43] LABS: Glucose - Point of Care 134 mg/dl (70-99)
[2025-04-02 23:47] VITALS: BP 93/51
[2025-04-03] MEDS: ULTRAM 50 MG PO ×2 (03:40→17:26)
--- NOTE | 2025-04-03 03:54 | DOWNTIME ---
There was a [employer] Downtime on 04/03/2025 from 0100 to 04/03/2025 at 0220. Downtime documentation of patient's care, including medication administrations, has been reconciled in the electronic record per guidelines. Refer to the
patient's paper chart under the miscellaneous tab to see printed paper medication records and downtime forms.
[2025-04-03 06:00] VITALS: BMI 43.8
[2025-04-03 07:42] LABS: Glucose - Point of Care 104 mg/dl (70-99)
--- NOTE | 2025-04-03 07:45 | PN.DE.MGMTRT ---
Insulin Management
- -
04/03/2025: Diabetes Management Consult Follow up
Patient admitted 03/26 with swelling of bilateral legs. PMH: CHF, HTN, HLD, CAD and NIDDM, a fib, asthma, active tobacco use. Prior to admission was taking Actos 30 mg daily, Metformin 500mg daily (ordered BID), Farxiga 10mg daily and Glipizide
10mg daily. A1C is 6.2%, Cr 0.7, eGFR >60
Patient is awake, alert, out of bed in chair, offers no complains, able to discuss diabetes care plan.
Sees his PCP for routine Diabetes care. States he has a working glucose monitor and has been consistently monitoring his blood sugars(90-100's)
Glucose on admission was 67, has remained low normal since admission.
04/02 Glucose range 86 to 134, cr .6, eGFR > 60. Received glipizide 5 mg daily, farxiga 10 mg daily and metformin 500 mg BID.
04/03 Fasting glucose 104. Will continue current regimen glipizide 5 mg daily with Farxiga 10 mg daily and metformin 500 mg BID.
Discussed with nurse
Will follow.
Will not resume Actos, it is contraindicated in patient with heart failure.
Diabetes History
- -
Type of Diabetes: 2
Pre-Admission Diabetes Regimen
04/02/25
08:19
Creatinine 0.6 L
Lab Results
Hemoglobin A1c 6.2 % (4.0-5.6) H 03/27/25 06:28
Insulin Pump Settings
IP Diabetes Regimen
04/02/25 04/02/25 04/02/25
08:19 08:20 11:32
Glucose 125 H
POC Glucose 86 98
04/02/25 04/02/25 04/03/25
16:19 21:41 07:39
Glucose
POC Glucose 133 H 134 H 104 H
Meal type: Breakfast
Amount consumed: 100%
Patient Education
[2025-04-03 07:51] VITALS: BP 121/56
[2025-04-03] MEDS: NOVOLOG FLEXPEN-LOW RESISTANCE SC ×3 (07:57→16:46)
[2025-04-03 08:17] LABS: Blood Urea Nitrogen 24 mg/dl (9-20); Calcium 8.6 mg/dl (8.4-10.2); Carbon Dioxide 35 mmol/L (22-30); Chloride 99 mmol/L (98-107); Estimated Creatinine Clearance > 125 ml/min; Glucose 102 mg/dl (70-99); Potassium 3.6 mmol/L (3.5-5.1); Sodium 139 mmol/L (135-145); eGFR > 60.00
[2025-04-03] MEDS: MIRALAX 17 GRAMS PO (08:27)
[2025-04-03] MEDS: SENOKOT-S 2 TABLET PO ×2 (08:28→20:52)
[2025-04-03] MEDS: LIPITOR 80 MG PO (08:29)
[2025-04-03] MEDS: KEFLEX 1000 MG PO ×4 (08:29→20:52)
[2025-04-03] MEDS: LASIX 80 MG IV ×2 (08:29→15:13)
[2025-04-03] MEDS: FARXIGA 10 MG PO (08:29)
[2025-04-03] MEDS: GLUCOTROL 5 MG PO (08:30)
[2025-04-03] MEDS: GLUCOPHAGE 500 MG PO ×2 (08:30→17:02)
[2025-04-03] MEDS: ELIQUIS 5 MG PO ×2 (08:30→20:52)
[2025-04-03] MEDS: ALDACTONE 12.5 MG PO (08:30)
[2025-04-03] MEDS: ASPIR LOW (ENTERIC COATED) 81 MG PO (08:31)
[2025-04-03] MEDS: COREG 6.25 MG PO ×2 (08:31→20:53)
[2025-04-03] MEDS: KCL 40 MEQ PO (08:31)
[2025-04-03] MEDS: FLOMAX 0.4 MG PO (08:31)
[2025-04-03] MEDS: HYDROPHOR 1 APPLIC TOPICAL (08:32)
[2025-04-03] MEDS: DESENEX/MITRAZOL/ZEASORB 1 APPLIC TOPICAL ×2 (08:32→20:52)
[2025-04-03] MEDS: NIZORAL 2% CREAM TOPICAL (08:33)
[2025-04-03] MEDS: PERCOCET 5/325 1 TABLET PO ×2 (08:40→20:53)
--- NOTE | 2025-04-03 09:33 | W.PN.HOSP.TC ---
Today's Communication/Plan
-
Continue current care
Assessment / Plan
Assessment / Plan
Gen-AAOx3, NAD, morbid obesity
HEENT-NC, AT, anicteric, clear oral mm
Neck-supple
CV-reg, no M, +S1/S2
Lungs-clear B/L
Abd-soft, NT, ND
Ext-bilateral lower extremity edema
Musculoskeletal-no cyanosis, clubbing
Skin-warm and dry
Neuro-grossly non-focal
Psych-calm, cooperative
Acute on chronic congestive heart failure, with preserved ejection fraction
Cardiology following here, follows with [facility], reports a dry weight of 280 pounds
Echo performed EF 60 to 65% with indeterminate diastolic function and mild-mod concentric LVH
Patient states his dry weight is 280 pounds, currently at 285.7 pounds today, down from 319 pounds upon admission
Lasix increased to 80 mg IV twice daily, started on spironolactone 12.5 mg daily by cardiology
Also started on Farxiga for GDMT
Trend creatinine, trend daily weights
Can switch to oral Lasix if okay with cardiology.
Acute urinary retention
Likely due to BPH
Started Flomax, maintain Garcia during hospitalization for MASD
Needs to remove Garcia for void trial on the day of discharge
Constipation
Continue laxatives, add magnesium citrate
Hypokalemia
Repleted and resolved
Chronic A-fib
Continue rate control with Coreg
Continue Eliquis
Right foot cellulitis
Day 7 of 7 for antibiotics.
Weakness
PT recommends short-term rehab, patient declines
Asthma
Controlled, continue albuterol HFA and Atrovent HFA
DM 2 without hyperglycemia
Controlled at 6.2
Resumed on metformin, glipizide, started on farxiga
Permanently discontinue Actos as this is contraindicated in CHF
Continue sliding scale insulin
Essential hypertension
BP controlled
Continue clonidine, carvedilol, Lasix
CAD
Hyperlipidemia
Continue aspirin and atorvastatin
Obesity due to excess calories
Affects all aspects of care
DVT prophylaxis�Eliquis
Full code
Dispo -discharge when cleared by cardiology. Patient now interested in SNF, case management aware.
Anticipated Discharge: Within 24 hours
Subjective/Interval History
-
Date of Service: April 03, 2025
Patient seen and examined. No complaints.
Objective Data
-
Labs:
Laboratory Results
04/03/25
06:41
Sodium 139
Potassium 3.6
Chloride 99
Carbon Dioxide 35 H
BUN 24 H
Creatinine 0.6 L
Glucose 102 H
Calcium 8.6
Vital Signs:
Vital Signs
Temp Pulse Resp BP Pulse Ox
97.5 F 70 16 122/56 92
04/03/25 07:51 04/03/25 08:29 04/03/25 07:51 04/03/25 08:29 04/03/25 07:51
I&O
04/02/25 04/03/25 04/04/25
06:59 06:59 06:59
Intake Total 776 / 776 690 / 690
Output Total 3000 / 3000 2300 / 2300
Balance -2224 / -2224 -1610 / -1610
Review of Systems
-
History Source: Patient
All other systems: Reviewed and negative
--- NOTE | 2025-04-03 10:23 | W.PN.CARDCBS ---
Today's Communication / Plan
-
Acute decompensated on chronic heart failure with preserved ejection fraction
Continue IV lasix 80 mg BID for at least another 24 hrs as wt continues to come down.
Patient was taking Lasix 20 mg PO daily prior to admission
Weight is down another 3 pounds over past 24 hours.
His weight is down close to 30 lbs to 279 pounds.
His dry weight has been reported to be around 280 pounds but his true dry wt may be lower.
Cr remains stable.
Cont Aldactone started this admit. Cont Farxiga
Remains in sinus s/p PAFib
Cont Coreg
Cont Eliquis
Impression / Plan
-
.
PCP: Chester Wilson
Product Development Intern: Previously followed by Dr. Xiong, now follows with Dr. Almazan at [facility]
Impression:
Presented 03/26/2025 with weight gain, lower extremity edema, scrotal edema and shortness of breath
Acute on chronic HFpEF
Right foot cellulitis
Coronary artery disease
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
Status post mid LAD 3.5 x 28 mm Promus LISANDRO April 2019
Hypertension
Hyperlipidemia
Obesity
Tobacco abuse
Chronic back pain
Asthma
Paroxysmal A-fib
Chronic Eliquis OAC
Cath Apr 2019: 95% stenosis in the mid LAD between the first and second septal perforated branches, 100% chronic occlusion of the PDA, ejection fraction 55% by left ventriculography. He underwent PCI and LISANDRO of mid LAD stenosis with a 3.5 x 28 mm
Promus stent.
Echo 06/26/2020: TDS: EF 63%. Mild concentric LVH. No significant valvular disease
Echo 03/27/2025: EF 60 to 65%, mild to moderate concentric LVH. Mild MR.
Plan:
Presented 03/26/2025 with weight gain, lower extremity edema, scrotal edema and shortness of breath
Acute decompensated on chronic heart failure with preserved ejection fraction
Continue IV lasix 80 mg BID for at least another 24 hrs as wt continues to come down.
Patient was taking Lasix 20 mg PO daily prior to admission
Weight is down another 3 pounds over past 24 hours.
His weight is down close to 30 lbs to 279 pounds.
His dry weight has been reported to be around 280 pounds but his true dry wt may be lower.
Cr remains stable.
Cont Aldactone started this admit. Cont Farxiga
Remains in sinus s/p PAFib
Cont Coreg
Cont Eliquis
Cont medical therapy for known coronary artery disease with no chest sx; Troponin undetectable.
Maintain atorvastatin 80 mg daily. LDL is 38.
Deconditioning
Cont PT, declines SNF
Discussed with primary service.
HPI 03/27/2025:
Patient is a 75-year-old male with past medical history for coronary artery disease, type 2 diabetes, hypertension, hyperlipidemia, tobacco abuse, obesity, heart failure with preserved ejection fraction, chronic back pain and asthma. Patient was
previously followed by Dr. Xiong and was last seen in cardiology office in 2019 now reporting he follows with [place] medical imaging director Dr. Almazan. He reports he was told by their office yesterday to go to the hospital and he has had bad
experiences at [facility] so he came to [place].
He presents to emergency department 03/26/2025 with weight gain, bilateral lower extremity edema, scrotal edema and shortness of breath. Chest x-ray with Mild prominence of the pulmonary vasculature suggestive of mild vascular congestion. No focal
airspace disease. No large pleural effusion. proBNP of 1230, troponin undetectable. EKG initially showed sinus rhythm however upon further review now appears patient is in atrial fibrillation with controlled ventricular response. Patient was given
60 mg IV Lasix in emergency department. Patient reports he has had good urination and feels less short of breath sitting in bed. He denies chest pain, palpitations, dizziness, lightheadedness
Progress Note - Product Development Intern
Subjective
Date of Service: April 03, 2025
Pt seen and examined. No cp. Breathing better.
Objective
Labs:
04/02/25 08:19
04/03/25 06:41
Labs
Hgb 11.8 g/dL (13.0-18.0) L 04/02/25 08:19
Hct 37.7 % (39.0-52.0) L 04/02/25 08:19
Plt Count 135 10^3/uL (130-400) 04/02/25 08:19
PT 18.1 Sec (11.4-14.6) H 03/26/25 13:30
INR 1.47 03/26/25 13:30
Sodium 139 mmol/L (135-145) 04/03/25 06:41
Potassium 3.6 mmol/L (3.5-5.1) 04/03/25 06:41
BUN 24 mg/dl (9-20) H 04/03/25 06:41
Creatinine 0.6 mg/dL (0.7-1.3) L 04/03/25 06:41
Glucose 102 mg/dl (70-99) H 04/03/25 06:41
Vital Signs and I&O:
Vital Signs
Temp Pulse Resp BP Pulse Ox
97.5 F 70 16 122/56 92
04/03/25 07:51 04/03/25 08:29 04/03/25 07:51 04/03/25 08:29 04/03/25 07:51
Vital Signs
Temp Pulse Resp BP Pulse Ox
97.5 F 70 16 122/56 92
04/03/25 07:51 04/03/25 08:29 04/03/25 07:51 04/03/25 08:29 04/03/25 07:51
Intake & Output
04/01/25 04/02/25 04/03/25 04/04/25
06:59 06:59 06:59 06:59
Intake Total 1620 / 1620 776 / 776 690 / 690
Output Total 3225 / 3225 3000 / 3000 2300 / 2300
Balance -1605 / -1605 -2224 / -2224 -1610 / -1610
Physical Exam
Physical Exam
General: No acute distress, AAOX3
Neck: Negative JVD
Heart: Regular, Negative S3 positive S1/S2, Negative S4, No murmur
Lungs: CTA b/l, negative wheezes/rales/rhonchi
Abd: Obesity. Positive BS, NT/ND, neg rebound/rigidity/guarding
Ext: Negative cyanosis/clubbing. +1 b/l edema
Neuro: nonfocal
--- NOTE | 2025-04-03 11:17 | CM ---
Pt weaned off oxygen Pox 92%.
PT eval which is SNF.
Pt is agreeing with SNF.Offered Pac data .
Referral placed for [facility] as requested.
Will need SNF auth after Snf located
PLAN To SNf after located and auth obtained
[2025-04-03 11:32] LABS: Glucose - Point of Care 104 mg/dl (70-99)
[2025-04-03 15:11] VITALS: BP 120/51
[2025-04-03 16:40] LABS: Glucose - Point of Care 114 mg/dl (70-99)
[2025-04-03 17:33] VITALS: BP 128/82
[2025-04-03 17:40] LABS: Glucose - Point of Care 151 mg/dl (70-99)
--- NOTE | 2025-04-03 17:41 | PTCARENOTE ---
pt c/o dizziness, lightheadedness and increased tremors. heart sounds are regular and lung sounds are clear. BP 126/82, HR 68, temp 97.6, RR 18, pulse ox 95% RA. blood sugar 151. provider notified.
[2025-04-03 18:01] VITALS: BP 138/66; BP 138/70; BP 146/79
[2025-04-03 18:10] VITALS: PULSE 101; PULSE 93; PULSE 99
[2025-04-03] MEDS: CATAPRES 0.1 MG PO (20:52)
[2025-04-03] MEDS: ATIVAN 2 MG PO (20:53)
[2025-04-03 22:32] LABS: Glucose - Point of Care 148 mg/dl (70-99)
[2025-04-03 23:44] VITALS: BP 121/51
[2025-04-04 06:00] VITALS: BMI 43.5
[2025-04-04 07:00] VITALS: BP 137/68
--- NOTE | 2025-04-04 07:22 | PN.DE.MGMTRT ---
Insulin Management
- -
04/04/2025: Diabetes Management Consult Follow up
Patient admitted 03/26 with swelling of bilateral legs. PMH: CHF, HTN, HLD, CAD and NIDDM, a fib, asthma, active tobacco use. Prior to admission was taking Actos 30 mg daily, Metformin 500mg daily (ordered BID), Farxiga 10mg daily and Glipizide
10mg daily. A1C is 6.2%, Cr 0.7, eGFR >60
Patient is awake, alert, out of bed in chair, offers no complains, able to discuss diabetes care plan.
Sees his PCP for routine Diabetes care. States he has a working glucose monitor and has been consistently monitoring his blood sugars(90-100's)
Glucose on admission was 67, has remained low normal since admission.
04/03 Glucose [id number] to 151.
04/04 Fasting glucose 104. Will continue current regimen (reduced dose) glipizide 5 mg daily with Farxiga 10 mg daily and metformin 500 mg BID.
Discussed with nurse
Will follow.
Will not resume Actos, it is contraindicated in patient with heart failure.
Diabetes History
- -
Type of Diabetes: 2
Pre-Admission Diabetes Regimen
04/03/25
06:41
Creatinine 0.6 L
Lab Results
Hemoglobin A1c 6.2 % (4.0-5.6) H 03/27/25 06:28
Insulin Pump Settings
IP Diabetes Regimen
04/03/25 04/03/25 04/03/25
06:41 07:39 11:31
Glucose 102 H
POC Glucose 104 H 104 H
04/03/25 04/03/25 04/03/25
16:39 17:38 22:30
Glucose
POC Glucose 114 H 151 H 148 H
Meal type: Lunch
Meal type: Breakfast
Amount consumed: 100%
Amount consumed: 100%
Patient Education
[2025-04-04 07:57] LABS: Glucose - Point of Care 103 mg/dl (70-99)
[2025-04-04 08:30] LABS: Blood Urea Nitrogen 24 mg/dl (9-20); Calcium 8.8 mg/dl (8.4-10.2); Carbon Dioxide 33 mmol/L (22-30); Chloride 99 mmol/L (98-107); Estimated Creatinine Clearance 120 ml/min; Glucose 105 mg/dl (70-99); Potassium 3.7 mmol/L (3.5-5.1); Sodium 138 mmol/L (135-145); eGFR > 60.00
[2025-04-04] MEDS: ALDACTONE 12.5 MG PO (08:55)
[2025-04-04] MEDS: NOVOLOG FLEXPEN-LOW RESISTANCE SC ×3 (08:55→16:49)
[2025-04-04] MEDS: FARXIGA 10 MG PO (08:55)
[2025-04-04] MEDS: FLOMAX 0.4 MG PO (08:55)
[2025-04-04] MEDS: SENOKOT-S 2 TABLET PO ×2 (08:55→19:47)
[2025-04-04] MEDS: LIPITOR 80 MG PO (08:55)
[2025-04-04] MEDS: PERCOCET 5/325 1 TABLET PO ×2 (08:55→19:47)
[2025-04-04] MEDS: GLUCOPHAGE 500 MG PO ×2 (08:56→18:24)
[2025-04-04] MEDS: GLUCOTROL 5 MG PO (08:56)
[2025-04-04] MEDS: ELIQUIS 5 MG PO ×2 (08:56→19:47)
[2025-04-04] MEDS: LASIX 80 MG IV ×2 (08:56→15:54)
[2025-04-04] MEDS: KCL 40 MEQ PO (08:56)
[2025-04-04] MEDS: COREG 6.25 MG PO ×2 (08:56→19:49)
[2025-04-04] MEDS: ASPIR LOW (ENTERIC COATED) 81 MG PO (08:56)
[2025-04-04] MEDS: FLUSH (NSS) 2 FLUSH IV (08:57)
[2025-04-04] MEDS: MIRALAX 17 GRAMS PO (09:04)
[2025-04-04] MEDS: HYDROPHOR 1 APPLIC TOPICAL (09:04)
[2025-04-04] MEDS: DESENEX/MITRAZOL/ZEASORB 1 APPLIC TOPICAL ×2 (09:05→19:47)
--- NOTE | 2025-04-04 10:30 | W.PN.CARDCBS ---
Addendum entered and electronically signed by Frankie Nieves MD 04/04/25 17:53:
I saw and examined the patient on morning rounds.
The High Rigger's note was reviewed and I agree with the note.
Comment: Briefly, 75-year-old man past medical history of heart failure preserved ejection fraction presenting in acute decompensated heart failure
With IV diuresis his weight is down approximately 30 pounds and appears euvolemic on exam
Plan to transition to oral Lasix 40 mg twice daily tomorrow and continue on discharge
Continue spironolactone and SGLT2
We will sign off, please recall as needed
He should follow-up with his primary javascript software engineer at [facility] following discharge
Original Note:
Today's Communication / Plan
-
Continue IV Lasix today, transition to 40mg p.o. BID in a.m.
Continue Coreg, spironolactone, Farxiga
Continue aspirin, Eliquis
plan for SNF upon discharge
will arrange outpatient cardiac follow-up
Impression / Plan
-
.
PCP: Chester Wilson
Freelance Displayer: Previously followed by Dr. Xiong, now follows with Dr. Almazan at [facility]
Impression:
Presented 03/26/2025 with weight gain, lower extremity edema, scrotal edema and shortness of breath
Acute on chronic HFpEF
Right foot cellulitis
Coronary artery disease
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
Status post mid LAD 3.5 x 28 mm Promus LISANDRO April 2019
Hypertension
Hyperlipidemia
Obesity
Tobacco abuse
Chronic back pain
Asthma
Paroxysmal A-fib
Chronic Eliquis OAC
Cath Apr 2019: 95% stenosis in the mid LAD between the first and second septal perforated branches, 100% chronic occlusion of the PDA, ejection fraction 55% by left ventriculography. He underwent PCI and LISANDRO of mid LAD stenosis with a 3.5 x 28 mm
Promus stent.
Echo 06/26/2020: TDS: EF 63%. Mild concentric LVH. No significant valvular disease
Echo 03/27/2025: EF 60 to 65%, mild to moderate concentric LVH. Mild MR.
Plan:
- He continues with good response to IV Lasix diuresis. Weight down 30+ pounds from admission if accurate. Patient reports significant improvement in breathing and lower extremity edema. Creatinine remains stable. Will plan for transition to
p.o. Lasix in a.m. Was taking 20 mg p.o. daily prior to admission, but has been receiving IV Lasix 80 mg twice daily while admitted. Would place on p.o. Lasix 40 mg twice daily for discharge
- Will need BMP and proBNP in 1 week
- Remains in sinus rhythm on review of telemetry overnight
- Continue Coreg, Aldactone, Farxiga
- Has history of CAD with stenting in 2019. Would continue aspirin and Eliquis for now, however would consider consolidating to monotherapy as stenting was remote.
- continue lipitor
- will arrange OP cardiac follow up, follows with [facility]
-plan for SNF upon DC
-d/w hospitalist
HPI 03/27/2025:
Patient is a 75-year-old male with past medical history for coronary artery disease, type 2 diabetes, hypertension, hyperlipidemia, tobacco abuse, obesity, heart failure with preserved ejection fraction, chronic back pain and asthma. Patient was
previously followed by Dr. Xiong and was last seen in cardiology office in 2019 now reporting he follows with [place] biomedical service engineer Dr. Almazan. He reports he was told by their office yesterday to go to the hospital and he has had bad
experiences at [facility] so he came to [place].
He presents to emergency department 03/26/2025 with weight gain, bilateral lower extremity edema, scrotal edema and shortness of breath. Chest x-ray with Mild prominence of the pulmonary vasculature suggestive of mild vascular congestion. No focal
airspace disease. No large pleural effusion. proBNP of 1230, troponin undetectable. EKG initially showed sinus rhythm however upon further review now appears patient is in atrial fibrillation with controlled ventricular response. Patient was given
60 mg IV Lasix in emergency department. Patient reports he has had good urination and feels less short of breath sitting in bed. He denies chest pain, palpitations, dizziness, lightheadedness
Progress Note - Freelance Displayer
Subjective
Date of Service: April 04, 2025
Reports feeling much improved from admission with decreased shortness of breath and lower extremity edema
Objective
Labs:
04/02/25 08:19
04/04/25 07:14
Labs
Hgb 11.8 g/dL (13.0-18.0) L 04/02/25 08:19
Hct 37.7 % (39.0-52.0) L 04/02/25 08:19
Plt Count 135 10^3/uL (130-400) 04/02/25 08:19
PT 18.1 Sec (11.4-14.6) H 03/26/25 13:30
INR 1.47 03/26/25 13:30
Sodium 138 mmol/L (135-145) 04/04/25 07:14
Potassium 3.7 mmol/L (3.5-5.1) 04/04/25 07:14
BUN 24 mg/dl (9-20) H 04/04/25 07:14
Creatinine 0.7 mg/dL (0.7-1.3) 04/04/25 07:14
Glucose 105 mg/dl (70-99) H 04/04/25 07:14
Vital Signs and I&O:
Vital Signs
Temp Pulse Resp BP Pulse Ox
97.8 F 74 16 137/68 91
04/04/25 07:00 04/04/25 08:35 04/04/25 08:35 04/04/25 07:00 04/04/25 08:35
Vital Signs
Temp Pulse Resp BP Pulse Ox
97.8 F 74 16 137/68 91
04/04/25 07:00 04/04/25 08:35 04/04/25 08:35 04/04/25 07:00 04/04/25 08:35
Intake & Output
04/02/25 04/03/25 04/04/25 04/05/25
07:59 07:59 07:59 07:59
Intake Total 776 / 776 690 / 690 960 / 960
Output Total 3000 / 3000 2300 / 2300 2900 / 2900
Balance -2224 / -2224 -1610 / -1610 -1940 / -1940
Physical Exam
Physical Exam
GEN: No distress, awake, alert, oriented x3. Obese
HEENT: supple, anicteric, mmm, EOMI
LUNGS: Expiratory wheezes bilaterally
CV: Reg, S1/S2, no murmur
ABD: soft, BS+, NT/ND
EXT: No cyanosis, clubbing. Trace edema of bilateral lower extremity
NEURO: Gross non-focal
SKIN: Warm, pink, dry. No rash
--- NOTE | 2025-04-04 10:55 | W.PN.HOSP.TC ---
Today's Communication/Plan
-
Continue current care
Assessment / Plan
Assessment / Plan
Gen-AAOx3, NAD, morbid obesity
HEENT-NC, AT, anicteric, clear oral mm
Neck-supple
CV-reg, no M, +S1/S2
Lungs-clear B/L
Abd-soft, NT, ND
Ext-bilateral lower extremity edema
Musculoskeletal-no cyanosis, clubbing
Skin-warm and dry
Neuro-grossly non-focal
Psych-calm, cooperative
Acute on chronic congestive heart failure, with preserved ejection fraction
Cardiology following here, follows with [place] [facility]ology, reports a dry weight of 280 pounds
Echo performed EF 60 to 65% with indeterminate diastolic function and mild-mod concentric LVH
Weight is down 14 kg since admission.
Lasix increased to 80 mg IV twice daily, started on spironolactone 12.5 mg daily by cardiology
Also started on Farxiga for GDMT
Trend creatinine, trend daily weights
Can switch to oral Lasix tomorrow per cardiology.
Acute urinary retention
Likely due to BPH
Started Flomax, maintain Garcia during hospitalization for MASD
Plan to remove Garcia catheter tomorrow morning. Voiding trial.
Constipation
Continue laxatives, add magnesium citrate
Hypokalemia
Repleted and resolved
Chronic A-fib
Continue rate control with Coreg
Continue Eliquis
Right foot cellulitis -completed course of antibiotics.
Asthma
Controlled, continue albuterol HFA and Atrovent HFA
DM 2 without hyperglycemia
Controlled at 6.2
Resumed on metformin, glipizide, started on farxiga
Permanently discontinue Actos as this is contraindicated in CHF
Continue sliding scale insulin
Essential hypertension
BP controlled
Continue clonidine, carvedilol, Lasix
CAD
Hyperlipidemia
Continue aspirin and atorvastatin
Obesity due to excess calories
Affects all aspects of care
DVT prophylaxis�Eliquis
Full code
Dispo -hopefully discharge to SNF tomorrow if stable. Discussed with case management.
Anticipated Discharge: Within 24 hours
Subjective/Interval History
-
Date of Service: April 04, 2025
Patient seen and examined. No complaints.
Objective Data
-
Labs:
Laboratory Results
04/04/25
07:14
Sodium 138
Potassium 3.7
Chloride 99
Carbon Dioxide 33 H
BUN 24 H
Creatinine 0.7
Glucose 105 H
Calcium 8.8
Vital Signs:
Vital Signs
Temp Pulse Resp BP Pulse Ox
97.8 F 74 16 137/68 91
04/04/25 07:00 04/04/25 08:35 04/04/25 08:35 04/04/25 07:00 04/04/25 08:35
I&O
04/03/25 04/04/25 04/05/25
06:59 06:59 06:59
Intake Total 690 / 690 960 / 960
Output Total 2300 / 2300 2900 / 2900
Balance -1610 / -1610 -1940 / -1940
Review of Systems
-
History Source: Patient
All other systems: Reviewed and negative
[2025-04-04 12:31] LABS: Glucose - Point of Care 115 mg/dl (70-99)
--- NOTE | 2025-04-04 12:55 | CM ---
Addendum entered by Veronica Brown 04/04/25 16:39:
All clinicals faxed to [employer], pending Auth for [facility] is [id number]
Original Note:
Patient has been accepted at [facility] and bed is available tomorrow, case consultant will reach out to patient's insurance for Auth.
[facility]

Dr Graeme Bennett
NPI [id number]
Plan; Skilled placement at [facility].
[2025-04-04 15:00] VITALS: BP 138/53
[2025-04-04 15:19] VITALS: BP 125/83; PULSE 65; O2SAT 95
[2025-04-04] MEDS: ULTRAM 50 MG PO (15:57)
[2025-04-04 16:20] LABS: Glucose - Point of Care 140 mg/dl (70-99)
[2025-04-04] MEDS: CATAPRES 0.1 MG PO (19:49)
[2025-04-04 21:07] LABS: Glucose - Point of Care 165 mg/dl (70-99)
[2025-04-04] MEDS: ATIVAN 2 MG PO (21:32)
[2025-04-04 23:15] VITALS: BP 105/54
[2025-04-05 06:00] VITALS: BMI 43.2
[2025-04-05 07:07] LABS: Glucose - Point of Care 122 mg/dl (70-99)
[2025-04-05 07:45] VITALS: BP 121/53
--- NOTE | 2025-04-05 07:51 | PN.DE.MGMTRT ---
Insulin Management
- -
04/05/2025: Diabetes Management Consult Follow up
Patient admitted 03/26 with swelling of bilateral legs. PMH: CHF, HTN, HLD, CAD and NIDDM, a fib, asthma, active tobacco use. Prior to admission was taking Actos 30 mg daily, Metformin 500mg daily (ordered BID), Farxiga 10mg daily and Glipizide
10mg daily. A1C is 6.2%, Cr 0.7, eGFR >60
Patient is awake, alert, out of bed in chair, offers no complains, able to discuss diabetes care plan.
Sees his PCP for routine Diabetes care. States he has a working glucose monitor and has been consistently monitoring his blood sugars(90-100's)
Glucose on admission was 67, has remained low normal since admission.
04/05 Fasting glucose 122. Will continue current regimen (reduced dose) glipizide 5 mg daily with Farxiga 10 mg daily and metformin 500 mg BID.
Discussed with nurse
Will follow.
Will not resume Actos, it is contraindicated in patient with heart failure.
Diabetes History
- -
Type of Diabetes: 2
Pre-Admission Diabetes Regimen
04/04/25
07:14
Creatinine 0.7
Lab Results
Hemoglobin A1c 6.2 % (4.0-5.6) H 03/27/25 06:28
Insulin Pump Settings
IP Diabetes Regimen
04/04/25 04/04/25 04/04/25
07:14 07:55 12:30
Glucose 105 H
POC Glucose 103 H 115 H
04/04/25 04/04/25 04/05/25
16:18 21:06 07:05
Glucose
POC Glucose 140 H 165 H 122 H
Meal type: Dinner
Amount consumed: 100%
Amount consumed: 100%
Patient Education
[2025-04-05] MEDS: LASIX IV (08:05)
[2025-04-05] MEDS: LASIX 40 MG PO ×2 (08:09→16:01)
[2025-04-05] MEDS: PERCOCET 5/325 1 TABLET PO (08:09)
[2025-04-05] MEDS: GLUCOTROL 5 MG PO (08:09)
[2025-04-05] MEDS: NOVOLOG FLEXPEN-LOW RESISTANCE SC ×2 (08:09→16:24)
[2025-04-05] MEDS: LIPITOR 80 MG PO (08:10)
[2025-04-05] MEDS: FLOMAX 0.4 MG PO (08:10)
[2025-04-05] MEDS: ASPIR LOW (ENTERIC COATED) 81 MG PO (08:10)
[2025-04-05] MEDS: ELIQUIS 5 MG PO (08:10)
[2025-04-05] MEDS: FARXIGA 10 MG PO (08:10)
[2025-04-05] MEDS: KCL 40 MEQ PO (08:11)
--- NOTE | 2025-04-05 08:11 | W.PN.HOSP.TC ---
Today's Communication/Plan
-
DC Garcia
Voiding trial
Lac-Hydrin
Discharge planning
Assessment / Plan
Assessment / Plan
Gen-AAOx3, NAD, morbid obesity
HEENT-NC, AT, anicteric, clear oral mm
Neck-supple
CV-reg, no M, +S1/S2
Lungs-clear B/L
Abd-soft, NT, ND
Ext-bilateral lower extremity edema
Musculoskeletal-no cyanosis, clubbing, limited right shoulder range of motion
Skin-warm and dry
Neuro-grossly non-focal
Psych-calm, cooperative
Acute on chronic congestive heart failure, with preserved ejection fraction -clinically improved. Shortness of breath resolved.
Cardiology following here, follows with [place] cardiology, reports a dry weight of 280 pounds
Echo performed EF 60 to 65% with indeterminate diastolic function and mild-mod concentric LVH
Weight is down 15 kg since admission.
Now on oral Lasix 40 mg twice daily, will continue on discharge.
Also started on Farxiga for GDMT
Acute urinary retention
Likely due to BPH
Started Flomax, maintain Garcia during hospitalization for MASD
Garcia catheter removed this morning, voiding trial today.
Constipation
Continue laxatives, add magnesium citrate
Chronic A-fib
Continue rate control with Coreg
Continue Eliquis
Right foot cellulitis -completed course of antibiotics. Right foot erythema improved. Does have dry skin, Lac-Hydrin ordered.
Chronic right shoulder rotator cuff tear -follow-up with orthopedics after discharge. Limited range of motion of the right arm.
Asthma
Controlled, continue albuterol HFA and Atrovent HFA
DM 2 without hyperglycemia
Controlled at 6.2
Resumed on metformin, glipizide, started on farxiga
Permanently discontinue Actos as this is contraindicated in CHF
Continue sliding scale insulin
Essential hypertension
BP controlled
Continue clonidine, carvedilol, Lasix
CAD
Hyperlipidemia
Continue aspirin and atorvastatin
Obesity due to excess calories
Affects all aspects of care
DVT prophylaxis�Eliquis
Full code
Dispo -stable for discharge to SNF today, awaiting insurance authorization.
Anticipated Discharge: Today
Subjective/Interval History
-
Date of Service: April 05, 2025
Patient seen and examined. No complaints.
Objective Data
-
Labs:
Laboratory Results
04/05/25
07:02
Sodium Pending
Potassium Pending
Chloride Pending
Carbon Dioxide Pending
BUN Pending
Creatinine Pending
Glucose Pending
Calcium Pending
Vital Signs:
Vital Signs
Temp Pulse Resp BP Pulse Ox
97.8 F 73 18 121/53 93
04/05/25 07:45 04/05/25 07:45 04/05/25 07:45 04/05/25 07:45 04/05/25 07:45
I&O
04/04/25 04/05/25 04/06/25
06:59 06:59 06:59
Intake Total 960 / 960 1400 / 1400
Output Total 2900 / 2900 1974 / 1974
Balance -1940 / -1940 -575 / -575
Review of Systems
-
History Source: Patient
All other systems: Reviewed and negative
[2025-04-05] MEDS: ALDACTONE 12.5 MG PO (08:12)
[2025-04-05] MEDS: COREG 6.25 MG PO (08:12)
[2025-04-05] MEDS: GLUCOPHAGE 500 MG PO ×2 (08:12→16:01)
[2025-04-05] MEDS: HYDROPHOR 1 APPLIC TOPICAL (08:15)
[2025-04-05] MEDS: DESENEX/MITRAZOL/ZEASORB 1 APPLIC TOPICAL (08:15)
[2025-04-05] MEDS: MIRALAX PO (08:16)
[2025-04-05] MEDS: SENOKOT-S PO (08:17)
[2025-04-05] MEDS: FLUSH (NSS) 1 FLUSH IV (08:17)
[2025-04-05 09:20] LABS: Blood Urea Nitrogen 27 mg/dl (9-20); Calcium 9.1 mg/dl (8.4-10.2); Carbon Dioxide 30 mmol/L (22-30); Chloride 101 mmol/L (98-107); Estimated Creatinine Clearance 119 ml/min; Glucose 109 mg/dl (70-99); Potassium 3.8 mmol/L (3.5-5.1); Sodium 138 mmol/L (135-145); eGFR > 60.00
--- NOTE | 2025-04-05 10:48 | CM ---
Addendum entered by Veronica Brown 04/05/25 15:46:
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
Original Note:
Patient is for skilled placement, call placed to patient's insurance this morning Auth has not been completed yet pending Auth is [id number], rn case manager at [facility] is Lydia Covarrubias [phone].
Evaristo Mora
Report [phone]
[2025-04-05 11:46] LABS: Glucose - Point of Care 155 mg/dl (70-99)
[2025-04-05] MEDS: NOVOLOG FLEXPEN-LOW RESISTANCE 1 UNITS SC (11:53)
[2025-04-05 15:00] VITALS: BP 124/57
--- NOTE | 2025-04-05 15:52 | W.DS.TRANS ---
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
-
Discharge Instructions:
Sleep Apnea Risk High
Discharge Diagnosis/Procedures Acute on chronic heart failure exacerbation,
acute urinary retention, right foot cellulitis
Diet 2 Gram Sodium,Restrict fluids to 48 oz
Activity As tolerated
Driving Restrictions No driving
Bathing Restrictions None
Blood Work proBNP/BMP in 1 week
Other Services PT,OT
Specialty Instructions Weigh Daily
Instructions: *DCA Heart Failure Instructions
Stand-Alone Forms:
Changes to Home Medications: Yes
Discharge Medications:
DC Medications w/original date entered in [facility]
clonidine HCl 0.1 mg tablet 0.1 mg PO HS Blood Pressure 04/15/19
dapagliflozin propanediol 10 mg tablet (Farxiga) 10 mg PO DAILY Diabetes 04/15/19
albuterol sulfate 90 mcg/actuation aerosol inhaler 2 puff inhalation R Q6HPRN PRN wheezing 03/26/25
apixaban 5 mg tablet (Eliquis) 5 mg PO Q12H Blood Clot Prevention/Tx 03/26/25
aspirin 81 mg tablet,delayed release 81 mg PO DAILY Blood Clot Prevention/Tx 03/26/25
atorvastatin 80 mg tablet 80 mg PO DAILY High Cholesterol 03/26/25
carvedilol 6.25 mg tablet 6.25 mg PO Q12H Blood Pressure 03/26/25
fluticasone 500 mcg-salmeterol 50 mcg/dose blistr powdr for inhalation (Advair Diskus) 0 inh inhalation .SEE BELOW PRN sob 03/26/25
ipratropium bromide 17 mcg/actuation HFA aerosol inhaler (Atrovent HFA) 2 puff inhalation R HSPRN PRN sob 03/26/25
blood sugar diagnostic (Contour Next Test Strips) ##100 03/28/25
glipizide 5 mg tablet, extended release 24 hr 5 mg PO DAILY #30 tabs 03/28/25
lancets 21 gauge (Color Lancets) ##100 03/28/25
furosemide 40 mg tablet 40 mg PO BID AT 0800,1600 #60 tabs 04/05/25
lorazepam 1 mg tablet 2 mg (2 x 1 mg) PO HS Mental Health/Anxiety #3 tabs 04/05/25
metformin 500 mg tablet 500 mg PO BID@0800,1700 #0 tabs 04/05/25
oxycodone-acetaminophen 5 mg-325 mg tablet 1 tab PO BID Pain #6 tabs 04/05/25
polyethylene glycol 3350 17 gram oral powder packet 17 g PO DAILY #0 ea 04/05/25
potassium chloride 20 mEq tablet,extended release(part/cryst) 40 meq (2 x 20 mEq) PO DAILY #0 tabs 04/05/25
sennosides 8.6 mg-docusate sodium 50 mg tablet 2 tab PO BID #0 tabs 04/05/25
spironolactone 25 mg tablet 12.5 mg (1/2 x 25 mg) PO DAILY #0 tabs 04/05/25
tamsulosin 0.4 mg capsule 0.4 mg PO DAILY #0 caps 04/05/25
tramadol 50 mg tablet 50 mg PO BIDPRN PRN mild pain #6 tabs 04/05/25
Home Medication Changes
Stop pioglitazone.
Stop ibuprofen.
Glipizide reduced to 5mg daily.
Furosemide increased to 40mg twice daily.
Pending Results: No
[2025-04-05 16:22] LABS: Glucose - Point of Care 119 mg/dl (70-99)
== END 2025-04-05 19:19 | DRG 602 ==
LOC: 4 EAST ACU 19:38
PROVIDERS: Family Medicine; Nurse Practitioner Family; Student in an Organized Health Care Education/Training Program; ADMITTING PHYSICIAN Internal Medicine; ATTENDING PHYSICIAN Hospitalist; CONSULT PHYSICIAN Internal Medicine Cardiovascular Disease; EMERGENCY PHYSICIAN Emergency Medicine; FAMILY PHYSICIAN Family Medicine
DX: L03.115 Cellulitis of right lower limb (principal); I50.33 Acute on chronic diastolic (congestive) heart failure; Z68.41 Body mass index [BMI] 40.0-44.9, adult; I11.0 Hypertensive heart disease with heart failure; I48.0 Paroxysmal atrial fibrillation; N50.89 Other specified disorders of the male genital organs; E11.9 Type 2 diabetes mellitus without complications; E78.00 Pure hypercholesterolemia, unspecified; E66.01 Morbid (severe) obesity due to excess calories; J45.909 Unspecified asthma, uncomplicated; I25.10 Atherosclerotic heart disease of native coronary artery without angina pectoris; Z82.49 Family history of ischemic heart disease and other diseases of the circulatory system; F17.200 Nicotine dependence, unspecified, uncomplicated; G89.29 Other chronic pain; L40.9 Psoriasis, unspecified; I25.82 Chronic total occlusion of coronary artery; Z79.01 Long term (current) use of anticoagulants; Z79.82 Long term (current) use of aspirin; Z79.84 Long term (current) use of oral hypoglycemic drugs; Z79.899 Other long term (current) drug therapy; Z82.0 Family history of epilepsy and other diseases of the nervous system; Z95.5 Presence of coronary angioplasty implant and graft
CPT/HCPCS: 71046; 80048; 80053; 80061; 82962; 83036; 83735; 83880; 84484; 85025; 85027; 85610; 87070; 93005; 93306; 94640; 96374; 96375; 97116; 97163; 97167; 97530; 97535; 99285; 99406; Q9950

== ENCOUNTER 2025-04-14 13:29 | Inpatient (IN) | payer OTHER, SELFPAY ==
[2025-04-14] VITALS (23 sets, daily range): BP systolic 82–146; BP diastolic 42–97; BMI 42.6; BMI 42.2
[2025-04-14 11:20] LABS: Glucose - Point of Care 252 mg/dl (70-99)
[2025-04-14] MEDS: NSS 500 IV ×2 (11:21→12:26)
[2025-04-14] MEDS: ZOFRAN 4 MG IV (11:23)
[2025-04-14 11:27] LABS: Hematocrit 23.6 % (39.0-52.0); Hemoglobin 7.5 g/dL (13.0-18.0); Mean Corp Hgb Conc. 31.8 g/dL (33.0-37.0); Mean Corpuscular Volume 101.3 fL (80.0-94.0); Nucleated Red Blood Cells % 0.3 % (-); Platelet Count 236 10^3/uL (130-400); Red Cell Dist. Width 14.8 % (11.5-14.5)
--- NOTE | 2025-04-14 11:35 | ED.GENMED ---
History of Present Illness
General
Chief Complaint: Weakness
Source: patient and records
Exam Limitations: none
Time Seen by Provider: 04/14/25 11:06
Nursing documentation reviewed up to this point in time: agreed with
History of Present Illness
History of Present Illness:
75-year-old male CHF pneumonia recently admitted went to rehab went back home presents with fatigue some nausea no dark or bloody stools, no dysuria or frequency here looks pale blood pressure soft looks like he is on Eliquis for PAF, denies seeing
any blood in his stool,
Past History
Past History
ED Past Medical History: Arrthythmia, Asthma, HTN, Hypercholesterolemia, NIDDM, [place] and Other (Psoriasis, Kidney stones, Chronic low back,)
ED Past Surgical History: Cardiac (Stent)
Social History
Tobacco: Smoker
Alcohol: None
Drug: None
Personal:
Living: with family
Employment: Employed
Review of Systems
Review of Systems
All Other Systems: Not applicable
Constitutional: Reports fatigue; Denies fever
Respiratory: Reports trouble breathing
Cardiac: Reports no symptoms
ABD/GI: Reports nausea; Denies abdominal pain
: Reports no symptoms
Musculoskeletal: Reports no symptoms
Skin: Reports no symptoms
Neurological: Reports weakness
Endocrine: Reports no symptoms
Hematologic/Lymphatic: Reports no symptoms; Denies bleeding
Phy Exam
Physical Exam
Physical Exam:
Physical Exam
General: Chronically ill-appearing male looks pale hypoxic 92% blood pressure in the 80
Neck: Pallorous.
Heart: s1/s2 regular rate and rhythm, no murmur. equal radial pulses.
Lungs: Crackles bilaterally
Abdomen: Nontender
Rectal: Black guaiac positive stool
Neuro: alert and oriented. no focal neurological deficits
Skin: no rash
Psychiatric: cooperative
Extremities: Nonpitting
Course
Orders/Labs/Results
Orders:
Orders
04/14/25 11:06
EKG [Electrocardiogram (*1)] Urgent
Reason for Study: Fatigue / Weakness
EKG- Treatment ONCE
04/14/25 11:10
Complete Blood Count/With Diff Urgent
Comprehensive Metabolic Panel Urgent
NT-proBNP Urgent
04/14/25 11:20
0.9% Sodium Chloride 500 ml [Nss] 500 ml IV BOLUS
04/14/25 11:22
Ondansetron Injectable [Zofran] 4 mg .ROUTE .STK-MED ONE
Ondansetron Injectable [Zofran] 4 mg IV NOW STA
04/14/25 11:23
Ondansetron Injectable [Zofran] 4 mg IV NOW STA
04/14/25 11:31
CXR [CR Chest Portable - 1 View] Urgent
Comment:
Reason For Exam: SOB
Reason Study Needs to be Portable: Patient Unstable
04/14/25 11:34
Type+Screen Urgent
Troponin I Urgent
04/14/25 11:49
ABO2 Urgent
BBK Wristband Number:
Associate notified that ABO2 has been ordered: BLANE-ER
Date: 04/14/25
Time: 11:44
Waste Chopper ID: [id number]
04/14/25 12:09
IV Insert/Care/Rem.- Treatment PRN
0.9% Sodium Chloride 500 ml [Nss] 500 ml IV BOLUS
HYDROmorphone [Dilaudid] 0.5 mg IV NOW STA
Pantoprazole 80 mg/100 ml Nss [Protonix] 80 mg in 100 ml IV NOW
Pantoprazole [Protonix IV] 80 mg IV NOW STA
Abnormal Lab Results
04/14/25 04/14/25
11:10 11:19
WBC 13.3 H 10^3/uL
(4.8-10.8)
RBC 2.33 L 10^6/uL
(4.70-6.10)
Hgb 7.5 L g/dL
(13.0-18.0)
Hct 23.6 L %
(39.0-52.0)
MCV 101.3 H fL
(80.0-94.0)
MCH 32.2 H pg
(27.0-31.0)
MCHC 31.8 L g/dL
(33.0-37.0)
RDW 14.8 H %
(11.5-14.5)
MPV 11.4 H fL
(7.4-10.4)
Abs Immat Gran (auto) 0.1 H 10^3/uL
(0-0.05)
Absolute Neuts (auto) 10.5 H 10^3/uL
(1.4-6.5)
Absolute Monos (auto) 0.9 H 10^3/uL
(0.1-0.6)
Immature Gran % 0.7 H %
(0-0.5)
Neutrophils % 78.5 H %
(42.2-75.2)
Lymphocytes % 13.5 L %
(20.5-51.1)
Chloride 109 H mmol/L
(98-107)
BUN 94 H mg/dl
(9-20)
Glucose 249 H mg/dl
(70-99)
AST 16 L U/L
(17-59)
Total Protein 5.6 L g/dl
(6.3-8.2)
POC Glucose 252 H mg/dl
(70-99)
04/14/25 11:10
04/14/25 11:10
Vital Signs
Initial and Last Documented VS:
Initial Vital Signs
Temp Pulse Resp BP Pulse Ox
98.7 F 94 28 99/53 97
04/14/25 11:06 04/14/25 11:06 04/14/25 11:06 04/14/25 11:06 04/14/25 11:06
Last Documented Vital Signs
Temp Pulse Resp BP Pulse Ox
98.7 F 93 26 99/53 97
04/14/25 11:06 04/14/25 11:11 04/14/25 11:11 04/14/25 11:10 04/14/25 11:36
MDM/Problems Addressed
Differential Diagnosis Includes:
GI bleed pneumonia heart failure ACS electrolyte abnormality deconditioning PE less likely as he appears to be anticoagulant
MDM/Problems Addressed:
Fatigue
Chronic conditions affecting care: DM, HTN, CAD and Arrhythmia
Acute Exacerbation and/or Progression of Chronic Illness: DM, CAD and Arrhythmia
*Radiology
Radiology exam reviewed: preliminary read by ED provider
*Pulse Oximetry
SaO2: 97
Oxygen Mode of Delivery: Room air
Patient hypoxic: no
*EKG
Interpreted by ED Provider?: Yes
Interpretation: normal
Comparison EKG: no comparison EKG present
Heart Rate: 78
Rate: normal
Rhythm: sinus
Ischemia: non-specific ST changes
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
Rate: normal
Interpretation: normal
Heart Rate: 78
Rhythm: sinus
*Critical Care Note
Total Time (30-74mins, 75-104mins- exclusive of procedures): 30
Update Note
Update Note:
1215, labs noted acute blood loss anemia elevated BUN/creatinine, type and screen, will start Protonix aggressive IV fluids consented for blood message sent to GI and hospitalist
ED Attending Note
-
Portions of this chart may have been created with voice recognition software.� Occasional wrong word or��sound alike� substitutions may have occurred due to the inherent limitations of voice recognition software.
Discharge Plan
Departure
Admit to: IMU
Presentation/result/management discussed w/ accepting MD/DO: Hospitalist
Patient with high blood pressure during this ER visit?: No
Condition: Fair
Discharge Problem:
ABLA (acute blood loss anemia)
Prescriptions:
No Action
clonidine HCl 0.1 MG tablet
0.1 mg PO HS
dapagliflozin propanediol [Farxiga] 10 MG tablet
10 mg PO DAILY
aspirin 81 mg Tablet,Delayed Release (Dr/Ec)
81 mg PO DAILY
albuterol sulfate 90 mcg/actuation Hfa Aerosol Inhaler
2 puff INHALATION R Q6HPRN PRN (Reason: wheezing)
Atrovent HFA 17 mcg/actuation Hfa Aerosol Inhaler
2 puff INHALATION R HSPRN PRN (Reason: sob)
Eliquis 5 mg Tablet
5 mg PO Q12H
atorvastatin 80 MG tablet
80 mg PO DAILY
carvedilol 6.25 MG tablet
6.25 mg PO Q12H
fluticasone propion-salmeterol [Advair Diskus] 500-50 mcg/dose Blister With Device
0 inh INHALATION .SEE BELOW PRN (Reason: sob)
Patient Comments:
03/26/2025, ecw records from 07/23/2020; no pharmacy records w/ this med.; pt. claims to take 2 puffs TIDPRN for SOB.
glipizide 5 mg Tablet Extended Release 24hr
5 mg PO DAILY Qty: 30 0RF
(DME) Contour Next Test Strips Strip
Qty: 100 1RF
Rx Instructions:
Test glucose before breakfast dinner and HS As Directed
(DME) lancets [Color Lancets] 21 gauge Misc
Qty: 100 1RF
Rx Instructions:
Test glucose before breakfast dinner and HS As Directed
spironolactone 25 mg Tablet
12.5 mg PO DAILY Qty: 0 0RF
metformin 500 mg Tablet
500 mg PO BID@0800,1700 Qty: 0 0RF
potassium chloride 20 mEq Tablet,Er Particles/Crystals
40 meq PO DAILY Qty: 0 0RF
furosemide 40 mg Tablet
40 mg PO BID AT 0800,1600 Qty: 60 0RF
polyethylene glycol 3350 17 gram Powder In Packet
17 g PO DAILY Qty: 0 0RF
sennosides-docusate sodium 8.6-50 mg Tablet
2 tab PO BID Qty: 0 0RF
tamsulosin 0.4 mg Capsule
0.4 mg PO DAILY Qty: 0 0RF
tramadol 50 mg Tablet
50 mg PO BIDPRN PRN (Reason: mild pain) Qty: 6 0RF
oxycodone-acetaminophen 5-325 mg Tablet
1 tab PO BID Qty: 6 0RF
lorazepam 1 MG tablet
2 mg PO HS Qty: 3 0RF
Interventions
Interventions:
*Risk Screen - Suicide Last Done: 04/14/25 11:05
*General Assessment Last Done: 04/14/25 11:05
*Neglect/Abuse Screening Last Done: 04/14/25 11:05
*ED- Fall Risk Assessment Last Done: 04/14/25 11:05
*ED COVID-19 Vaccine History Last Done: 04/14/25 11:05
ED- Cardiac Assessment Last Done: 04/14/25 11:14
ED- Neurological Assessment Last Done: 04/14/25 11:14
ED- Pulmonary Assessment Last Done: 04/14/25 11:14
Discharge Date and Time
Print Language: ESTONIAN
[2025-04-14 11:44] LABS: ALT (SGPT) 14 U/L (0-50); AST (SGOT) 16 U/L (17-59); Albumin 3.6 g/dl (3.5-5.0); Alkaline Phosphatase 64 U/L (38-126); Blood Urea Nitrogen 94 mg/dl (9-20); Calcium 9.1 mg/dl (8.4-10.2); Carbon Dioxide 23 mmol/L (22-30); Chloride 109 mmol/L (98-107); Estimated Creatinine Clearance 83 ml/min; Glucose 249 mg/dl (70-99); Potassium 4.4 mmol/L (3.5-5.1); Sodium 141 mmol/L (135-145); Total Protein 5.6 g/dl (6.3-8.2); eGFR > 60.00
--- NOTE | 2025-04-14 12:17 | HPS.HSE ---
Family Physician
-
Family Physician:
Chief Complaint
-
Weakness and Shortness of Breath
History of Present Illness
Patient is a 75 y/o male past medical history of CAD, CHF, A-Fib, DM and HTN who presents with weakness and shortness of breath. Patient was recently hospitalized from March 26 to April 05 for acute heart failure. Patient was initially discharge to
a SNF and recently returned home. He reports persistent weakness and shortness of breath. He reports occasional dizziness. He reports lower extremity is persistent but about the same as when he was discharge from the hospital. He denies chest
pain. Work-up in ED revealed acute anemia with a drop in Hgb from 11 to 7.5. Patient denies any abdominal pain, nausea, vomiting, diarrhea or black stools. He does not use NSAIDs on a regualr basis. He denies prior history of GI bleed and has
never had a previous upper endoscopy or colonoscopy.
Medical History
Past Medical History
Past Medical History: Reports Other
Additional Past Medical History:
Coronary Artery Disease s/p LAD Stent 2018
Chronic HFpEF
Paroxysmal Atrial Fibrillation
Diabetes Mellitus, Type II
Essential Hypertension
Hyperlipidemia
Asthma
Psoriasis
Obesity due to Excess Calories
Past Surgical History: Reports Other
Additional Past Surgical History:
Left L5-S1 ILESI 06/23/2017
Right L5-S1 Interlaminar Epidural Steroid Injection 05/23/18
Bilateral S1 Transforaminal Epidural Steroid Injection 07/21/18
L heart Cath 04/17/2019
Social History
Tobacco: Former Smoker (quit 1 year ago )
Alcohol: Former (Quit 3 years ago)
Drug: None
Personal: Other ( )
Living: With Family
Employment: Retired
Family History
Family History: Other (Father: CAD; Mother: Alzheimer's )
Allergies / Home Medications
Allergies reflects when Allergies were last updated in [facility].
Home Medications with original date entered in [facility]
Allergy/Medication List:
Allergies
Allergy/AdvReac Type Severity Reaction Status Date / Time
pollen extracts Allergy HAYFEVER-NASAL Verified 04/14/25 11:12
SYMPTOMS
Home Medications
clonidine HCl 0.1 mg tablet 0.1 mg PO HS Blood Pressure 04/15/19
dapagliflozin propanediol 10 mg tablet (Farxiga) 10 mg PO DAILY Diabetes 04/15/19
albuterol sulfate 90 mcg/actuation aerosol inhaler 2 puff inhalation R Q6HPRN PRN wheezing 03/26/25
apixaban 5 mg tablet (Eliquis) 5 mg PO Q12H Blood Clot Prevention/Tx 03/26/25
aspirin 81 mg tablet,delayed release 81 mg PO DAILY Blood Clot Prevention/Tx 03/26/25
atorvastatin 80 mg tablet 80 mg PO DAILY High Cholesterol 03/26/25
carvedilol 6.25 mg tablet 6.25 mg PO Q12H Blood Pressure 03/26/25
fluticasone 500 mcg-salmeterol 50 mcg/dose blistr powdr for inhalation (Advair Diskus) 0 inh inhalation .SEE BELOW PRN sob 03/26/25
ipratropium bromide 17 mcg/actuation HFA aerosol inhaler (Atrovent HFA) 2 puff inhalation R HSPRN PRN sob 03/26/25
blood sugar diagnostic (Contour Next Test Strips) ##100 03/28/25
glipizide 5 mg tablet, extended release 24 hr 5 mg PO DAILY #30 tabs 03/28/25
lancets 21 gauge (Color Lancets) ##100 03/28/25
furosemide 40 mg tablet 40 mg PO BID AT 0800,1600 #60 tabs 04/05/25
lorazepam 1 mg tablet 2 mg (2 x 1 mg) PO HS Mental Health/Anxiety #3 tabs 04/05/25
metformin 500 mg tablet 500 mg PO BID@0800,1700 #0 tabs 04/05/25
oxycodone-acetaminophen 5 mg-325 mg tablet 1 tab PO BID Pain #6 tabs 04/05/25
polyethylene glycol 3350 17 gram oral powder packet 17 g PO DAILY #0 ea 04/05/25
potassium chloride 20 mEq tablet,extended release(part/cryst) 40 meq (2 x 20 mEq) PO DAILY #0 tabs 04/05/25
sennosides 8.6 mg-docusate sodium 50 mg tablet 2 tab PO BID #0 tabs 04/05/25
spironolactone 25 mg tablet 12.5 mg (1/2 x 25 mg) PO DAILY #0 tabs 04/05/25
tamsulosin 0.4 mg capsule 0.4 mg PO DAILY #0 caps 04/05/25
tramadol 50 mg tablet 50 mg PO BIDPRN PRN mild pain #6 tabs 04/05/25
methotrexate sodium 2.5 mg tablet 20 mg PO SA 04/14/25
Review of Systems
-
A 12 point ROS was completed and negative except as noted: Yes
Constitutional: Denies Fever or Chills
Respiratory: Reports Trouble Breathing
Cardiac: Denies Chest Pain, Palpitations or Syncope
Abdomen/GI: Reports See HPI
Physical Exam
Vital Signs
Vital Signs
Temp Pulse Resp BP Pulse Ox
98.7 F 93 26 99/53 97
04/14/25 11:06 04/14/25 11:11 04/14/25 11:11 04/14/25 11:10 04/14/25 11:36
Physical Exam
General: Comfortable, Conversant and Other (Appears pale)
HEENT: Anicteric and Moist mucous membranes
Respiratory: Clear and Non Labored Respirations
Cardiac: S1/S2 and Regular Rhythm
GI: Soft and Non Tender
Rectal: Other (Black heme-positive stool per ED provider)
Musculoskeletal: No Clubbing, No Cyanosis and Other (+2 pitting edema bilateral lower extremities)
Skin: Warm and Dry
Neuro: Awake, Alert, Oriented and Nonfocal/grossly intact
Psych: Calm
Laboratory Results
-
04/14/25 11:10
04/14/25 11:10
Laboratory Results
Total Bilirubin 0.5 mg/dl (0.2-1.3) 04/14/25 11:10
AST 16 U/L (17-59) L 04/14/25 11:10
ALT 14 U/L (0-50) 04/14/25 11:10
Alkaline Phosphatase 64 U/L (38-126) 04/14/25 11:10
Data Reviewed
-
Lab Data: Labs Reviewed by me
Old Records: Reviewed
Impression/Plan
-
Symptomatic Anemia secondary to GI Bleed
-Check iron studies, vitamin b12 and folic acid
-Transfuse 1 units PRBCs
-Monitor serial Hgb
GI Bleed, likely upper in nature in setting of black color stool
-Consult GI
-Continue NPO
-Continue Protonix drip
-Hold Eliquis and Aspirin
Coronary Artery Disease s/p LAD Stent 2019
-Aspiring on hold in setting of GI Bleed
Chronic HFpEF
-Diuretics on hold while NPO
-Monitor Daily Weights
Paroxysmal Atrial Fibrillation
-Eliquis on hold due to HI bleed
-Coreg on hold due to hypotension - Monitor heart rate
Diabetes Mellitus, Type II
-Oral diabetic meds on hold while NPO
-Monitor sugars and continue coverage insulin
Essential Hypertension
-BP medications on hold as patient was initially hypotensive in the emergency department
Hyperlipidemia
-Continue atorvastatin
Asthma, no acute exacerbation
-Continue albuterol prn
Psoriasis
-Patient maintained on methotrexate as outpatient
Obesity due to Excess Calories
-Affects all aspects of care
DVT proph: SCDs until able to resume Eliquis
Code Status: Full Code
[2025-04-14 12:27] LABS: Troponin I 0.018 ng/ml
[2025-04-14] MEDS: PROTONIX IV 80 MG IV (12:29)
[2025-04-14] MEDS: DILAUDID 0.5 MG IV (12:29)
[2025-04-14] MEDS: PROTONIX 100 IV ×2 (12:29→20:33)
[2025-04-14 13:53] LABS: Iron 99 ug/dl (49-181)
--- NOTE | 2025-04-14 13:55 | CM ---
Reviewed the chart notes and spoke with the patient and son at the bedside. Patient receiving 1 unit PRBC. The patient was recently hospitalized and discharged to [facility] (04/05-04/13). The patient resides with his son in a first floor apartment
with four steps to enter. The patient has a rolling walker and shower chair. The patient reports no VN in past. The patient confirmed his pharmacy of choice is [facility]. CM continues to be available to patient/family and is
monitoring medical plan for needs at discharge.
Plan: Discharge plans will depend on the patient's progress.
[2025-04-14 14:02] LABS: Total Iron Binding Capacity 311 ug/dl (261-462)
--- NOTE | 2025-04-14 14:43 | CON.GI ---
Consultation
-
Date/Time Consultation Requested: 04/14/2025, 12:15pm
Date/Time Consultation Performed: 04/14/2025, 2:45pm
Requesting Provider: Dr. Kevin
Performing Provider: Dr. Ross
Reason for Consultation: melena
Medical History
Chief Complaint / HPI
Chief Complaint: SOB
History of Present Illness:
75 yo M pmh CHF with preserved EF recent admission in March for diuresis (30 lb weight loss from this), A fib on Eliquis presenting with SOB, weakness. Has not noticed any change in color of his stool. Denies abdominal pain, chest pain, dysphagia.
Has baseline constipation. Was just sent home from rehab to home yesterday and had shortness of breath and weakness which made him come back in. His lower extremity edema from his prior admission has improved. He takes Advil 5 pills a day. Never
had EGD/cscope.
Found to have acute drop in Hb 11 to 7.5; BUN 94. Noted to have melena in ED. BP in this 80s on admission improved with fluids to systolic 110.
Past Medical History
Past Medical History: Arrhythmias (a fib), Asthma, CAD, CHF, HTN, Hypercholesterolemia, IDDM and Other (psoriasis, obesity)
Past Surgical History: Other (ortho, heart cath)
Social History
Tobacco: Former Smoker
Alcohol: Former
Drug: None
Family History
Family History: Reviewed & Not Pertinent
Allergies / Home Medications
Allergy/AdvReac Type Severity Reaction Status Date / Time
pollen extracts Allergy HAYFEVER-NASAL Verified 04/14/25 11:12
SYMPTOMS
�Medication �Instructions �Recorded
clonidine HCl 0.1 mg tablet 0.1 mg PO HS Blood Pressure 04/15/19
dapagliflozin propanediol 10 mg 10 mg PO DAILY Diabetes 04/15/19
tablet (Farxiga)
albuterol sulfate 90 mcg/actuation 2 puff inhalation R Q6HPRN PRN 03/26/25
aerosol inhaler wheezing
apixaban 5 mg tablet (Eliquis) 5 mg PO Q12H Blood Clot 03/26/25
Prevention/Tx
aspirin 81 mg tablet,delayed 81 mg PO DAILY Blood Clot 03/26/25
release Prevention/Tx
atorvastatin 80 mg tablet 80 mg PO DAILY High Cholesterol 03/26/25
carvedilol 6.25 mg tablet 6.25 mg PO Q12H Blood Pressure 03/26/25
fluticasone 500 mcg-salmeterol 50 0 inh inhalation .SEE BELOW 03/26/25
mcg/dose blistr powdr for PRN sob
inhalation (Advair Diskus)
ipratropium bromide 17 2 puff inhalation R HSPRN PRN sob 03/26/25
mcg/actuation HFA aerosol inhaler
(Atrovent HFA)
blood sugar diagnostic (Contour ##100 03/28/25
Next Test Strips)
glipizide 5 mg tablet, extended 5 mg PO DAILY #30 tabs 03/28/25
release 24 hr
lancets 21 gauge (Color Lancets) ##100 03/28/25
furosemide 40 mg tablet 40 mg PO BID AT 0800,1600 #60 tabs 04/05/25
lorazepam 1 mg tablet 2 mg (2 x 1 mg) PO HS Mental 04/05/25
Health/Anxiety #3 tabs
metformin 500 mg tablet 500 mg PO BID@0800,1700 #0 tabs 04/05/25
oxycodone-acetaminophen 5 mg-325 1 tab PO BID Pain #6 tabs 04/05/25
mg tablet
polyethylene glycol 3350 17 gram 17 g PO DAILY #0 ea 04/05/25
oral powder packet
potassium chloride 20 mEq 40 meq (2 x 20 mEq) PO DAILY #0 04/05/25
tablet,extended release(part/cryst) tabs
sennosides 8.6 mg-docusate sodium 2 tab PO BID #0 tabs 04/05/25
50 mg tablet
spironolactone 25 mg tablet 12.5 mg (1/2 x 25 mg) PO DAILY #0 04/05/25
tabs
tamsulosin 0.4 mg capsule 0.4 mg PO DAILY #0 caps 04/05/25
tramadol 50 mg tablet 50 mg PO BIDPRN PRN mild pain #6 04/05/25
tabs
methotrexate sodium 2.5 mg tablet 20 mg PO SA 04/14/25
Review of Systems
-
All other systems: A 12 pt ROS was Negative except as stated above in HPI
Vital Signs
Temp Pulse Resp BP Pulse Ox
98.0 F 86 19 118/50 98
04/14/25 14:20 04/14/25 14:20 04/14/25 14:20 04/14/25 14:20 04/14/25 14:21
Physical Exam
Exam
General: Well Developed
HEENT: Normocephalic
Respiratory: Clear
Cardiac: Regular Rhythm
GI: Non Tender and Non Distended
Genito-urinary: No Costovertebral Tender
Skin: Warm
Neuro: AO x 3
Psych: Calm
Results
WBC 13.3 10^3/uL (4.8-10.8) H 04/14/25 11:10
Hgb 7.5 g/dL (13.0-18.0) L 04/14/25 11:10
Hct 23.6 % (39.0-52.0) L 04/14/25 11:10
MCV 101.3 fL (80.0-94.0) H 04/14/25 11:10
Plt Count 236 10^3/uL (130-400) 04/14/25 11:10
Absolute Neuts (auto) 10.5 10^3/uL (1.4-6.5) H 04/14/25 11:10
Sodium 141 mmol/L (135-145) 04/14/25 11:10
Potassium 4.4 mmol/L (3.5-5.1) 04/14/25 11:10
Chloride 109 mmol/L (98-107) H 04/14/25 11:10
Carbon Dioxide 23 mmol/L (22-30) 04/14/25 11:10
BUN 94 mg/dl (9-20) H 04/14/25 11:10
Creatinine 1.0 mg/dL (0.7-1.3) 04/14/25 11:10
Calcium 9.1 mg/dl (8.4-10.2) 04/14/25 11:10
Total Bilirubin 0.5 mg/dl (0.2-1.3) 04/14/25 11:10
AST 16 U/L (17-59) L 04/14/25 11:10
ALT 14 U/L (0-50) 04/14/25 11:10
Alkaline Phosphatase 64 U/L (38-126) 04/14/25 11:10
Diagnostic Image Results:
Prior GI Procedures:
EGD:
Colonoscopy:
Assessment / Plan
-
75 yo M pmh HF, A fib on eliquis p/w melena, drop in Hb, elevated BUN, in setting of excessive Advil suspect PUD.
Recommend EGD -discussed with patient risk, alternatives, benefits as well as family at bedside. Risks include but not limited to bleeding, infection, perforation, risk of anesthesia. Patient was optimized from cardiology recently and weight
seems to be stable. Underwent a chest x-ray which showed no acute cardiopulmonary process. Suspect shortness of breath and weakness is due to anemia.
Plan for upper endoscopy tomorrow unless patient has ongoing hemodynamic instability, hematemesis. Continue PPI drip. Clear liquids today, n.p.o. after midnight. Hold Eliquis. Trend hemoglobin. Discussed with patient importance of avoiding all
NSAIDs.
Discussed with hospitalist TAMEKA, emergency room physician.
-
-
Thank you for consultation and allowing me to participate in the patient's care. Please call the instructional resource teacher GI physician during the after hours with any questions or concerns.
[2025-04-14 14:46] LABS: Ferritin 29.4 ng/ml (17.9-464.0)
[2025-04-14 15:17] LABS: Folate 7.0 ng/ml (2.76-20); Vitamin B12 281 pg/ml (239-931)
--- NOTE | 2025-04-14 15:20 | W.PN.UPDATE ---
Update Note
Progress Note Update
patient seen and examined independently
Please see PA note for full details
75 y/o man with a relevant past medical history of:
CAD,
CHF,
A-Fib,
DM
HTN
who presents with weakness and shortness of breath. He was recently hospitalized from March 26 to April 05 for acute heart failure. He was discharge to a SNF and recently returned home. He reports persistent weakness and shortness of breath with
occasional dizziness. He denies chest pain. In ED he was seen to have acute anemia with a drop in Hgb from 11 to 7.5. He denies any abdominal pain, nausea, vomiting, diarrhea or black stools. He does not use NSAIDs on a regular basis. He denies
prior history of GI bleed and has never had a previous upper endoscopy or colonoscopy. At the time of my interview he was receiving blood and and was confortable.
Past Medical History
Coronary Artery Disease s/p LAD Stent 2018
Chronic HFpEF
Paroxysmal Atrial Fibrillation
Diabetes Mellitus, Type II
Essential Hypertension
Hyperlipidemia
Asthma
Psoriasis
Obesity due to Excess Calories
Left L5-S1 ILESI 06/23/2017
Right L5-S1 Interlaminar Epidural Steroid Injection 05/23/18
Bilateral S1 Transforaminal Epidural Steroid Injection 07/21/18
L heart Cath 04/17/2019
Physical Exam
General: Comfortable
Respiratory: Clear
Cardiac: S1/S2
GI: Soft and Non Tender
Skin: Warm and Dry
Psych: Calm
Impression/Plan
1. Symptomatic Anemia secondary to GI Bleed
Check iron studies, vitamin b12 and folic acid
Transfuse 1 units PRBCs (already going)
Monitor serial Hgb
2. GI Bleed, likely upper in nature in setting of black color stool
GI Consult
NPO
Protonix drip
Hold Eliquis and Aspirin
3. Coronary Artery Disease s/p LAD Stent 2018
Hold ASA
Monitor for symptoms
Please see PA note for full details on:
Chronic HFpEF
Paroxysmal Atrial Fibrillation
Diabetes Mellitus, Type II
Essential Hypertension
Hyperlipidemia
Asthma, no acute exacerbation
Psoriasis
Obesity due to Excess Calories
[2025-04-14] MEDS: NOVOLOG FLEXPEN-MODERATE RESISTANCE 1 UNITS SC (17:54)
[2025-04-14 18:10] LABS: Glucose - Point of Care 173 mg/dl (70-99)
[2025-04-14] MEDS: VENTOLIN NEBULES 2.5 MG INH (18:10)
[2025-04-14] MEDS: PERCOCET 5/325 1 TABLET PO (20:13)
[2025-04-14] MEDS: DESENEX/MITRAZOL/ZEASORB 1 APPLIC TOPICAL (20:14)
[2025-04-14] MEDS: ATIVAN 2 MG PO (20:33)
[2025-04-14 20:44] LABS: Hematocrit 20.9 % (39.0-52.0); Hemoglobin 7.0 g/dL (13.0-18.0)
[2025-04-14 21:46] LABS: Glucose - Point of Care 152 mg/dl (70-99)
--- NOTE | 2025-04-14 22:00 | PTCARENOTE ---
DIANETIC COUNSELOR aware of hgb drop. VSS. Asymptomatic other than feeling weak. No signs of bleeding. No bm's. Will recheck at 0200 & monitor.
[2025-04-15] VITALS (27 sets, daily range): BP systolic 91–146; BP diastolic 44–73; BMI 42.0
[2025-04-15 01:33] LABS: Hematocrit 20.2 % (39.0-52.0); Hemoglobin 6.7 g/dL (13.0-18.0); Mean Corp Hgb Conc. 33.2 g/dL (33.0-37.0); Mean Corpuscular Volume 97.6 fL (80.0-94.0); Platelet Count 204 10^3/uL (130-400); Red Cell Dist. Width 15.6 % (11.5-14.5)
[2025-04-15 01:45] LABS: Blood Urea Nitrogen 76 mg/dl (9-20); Calcium 8.3 mg/dl (8.4-10.2); Carbon Dioxide 24 mmol/L (22-30); Chloride 111 mmol/L (98-107); Estimated Creatinine Clearance 103 ml/min; Glucose 125 mg/dl (70-99); Magnesium 2.2 mg/dl (1.6-2.3); Potassium 4.0 mmol/L (3.5-5.1); Sodium 140 mmol/L (135-145); eGFR > 60.00
--- NOTE | 2025-04-15 01:51 | W.PN.UPDATE ---
Update Note
Progress Note Update
Critical lab: Hgb 6.7/Hct 20.2. Ordered 1 unit PRBC's to be given tonight. Repeat H&H in am.
[2025-04-15 02:47] LABS: Hepatitis C Antibody Negative (Negative)
--- NOTE | 2025-04-15 03:07 | PTCARENOTE ---
Caring for pt overnight. aaox3, pleasant. NSR, 2LNC. Pale, weak, c/o pain in legs. Scheduled pain meds given. PT very anxious. PRN ativan given. 0200 hgb came back 6.7, [employer]ER aware and 1UPRBC infusing now, tolerating well. Protonix gtt running. Q2T. No
other issues. will monitor.
[2025-04-15 05:11] LABS: Glucose - Point of Care 139 mg/dl (70-99)
[2025-04-15] MEDS: ZOFRAN 4 MG IV (05:30)
[2025-04-15] MEDS: NOVOLOG FLEXPEN-MODERATE RESISTANCE SC ×2 (06:06→12:12)
[2025-04-15] MEDS: PROTONIX 100 IV (06:19)
[2025-04-15 07:15] LABS: Hematocrit 23.1 % (39.0-52.0); Hemoglobin 7.6 g/dL (13.0-18.0)
[2025-04-15] MEDS: DESENEX/MITRAZOL/ZEASORB 1 APPLIC TOPICAL ×2 (07:57→20:08)
--- NOTE | 2025-04-15 07:59 | W.PN.HOSP.TC ---
Today's Communication/Plan
-
See plan
Assessment / Plan
Assessment / Plan
Physical Exam
General: Comfortable, Conversant
HEENT: Normocephalic. Moist mucous membranes
Respiratory: Clear and Non Labored Respirations Bilaterally.
Cardiac: S1/S2 and Regular Rhythm
GI: Soft and Non Tender. Positive bowel sounds.
Musculoskeletal: No Cyanosis and Other (+2 pitting edema bilateral lower extremities)
Skin: Warm and Dry
Neuro: Awake, Alert, Oriented and Nonfocal/grossly intact
Psych: Calm
Assessment/Plan
75 y/o male with past medical history of CAD, CHF, A-Fib, DM and HTN who presented with weakness and shortness of breath. Patient was recently hospitalized from March 26, 2025 to April 05, 2025 for acute heart failure. Patient was initially discharged
to a SNF and recently returned home. He reported persistent weakness and shortness of breath. He reported occasional dizziness. He reported lower extremity is persistent but about the same as when he was discharge from the hospital. He denied chest
pain. Work-up in ED revealed acute anemia with a drop in Hgb from 11 to 7.5. At the time of admission, patient denied any abdominal pain, nausea, vomiting, diarrhea or black stools. He does not use NSAIDs on a regular basis. He denied prior history
of GI bleed and has never had a previous upper endoscopy or colonoscopy.
Generalized Weakness, Shortness of Breath and Occasional Dizziness
Symptomatic Anemia secondary to GI Bleed
Initially hypotensive in the emergency department
-Iron Studies unremarkable
-Vitamin B12 closer to the lower end of normal at 281 -- so will start Vitamin B12 supplementation
-Folate level normal
-So far 2 units total PRBCs have been transfused
-Monitor serial Hgb
GI Bleed, likely upper in nature in setting of black color stool
Gastric erosion with no stigmata of recent bleeding on EGD from 04/15/25
Non-bleeding gastric ulcer with no stigmata of bleeding, on EGD from 04/15/25 -- suspected from NSAIDs
Single non-bleeding angioectasia in the duodenum (treated with argon plasma coagulation (APC)), on EGD from 04/15/25
Non-bleeding duodenal diverticulum on EGD from 04/15/25
-Consult GI
-EGD findings are as above. Follow-up biopsy results from stomach biopsy.
-CLD diet today
-Continue Protonix IV (Protonix gtt discontinued)
-Hold Eliquis
-Continue Aspirin (I also confirmed with GI that the Aspirin should be continued)
-Avoid all NSAIDs (patient was taking 5 ibuprofen a day).
-The small ulcer likely from NSAIDs given significant bleeding, small size of ulcer, benign appearance was not biopsied with risk of further bleeding; since not biopsied technically need repeat EGD 8 weeks r/b given overall
clinical status will have follow up in office to discuss although suspicion is low, as per GI.
-Based on significant drop in Hgb with no significant source on EGD from 04/15/25 -- colonoscopy planned for 04/16/25
-Patient may also have had more AVMs in small bowel or diverticulum in duodenum could have bled and stopped.
-Continue to trend Hgb and transfuse PRBCs to maintain Hgb>8
Coronary Artery Disease s/p LAD Stent 2019
-Continue Aspirin
Chronic HFpEF
-Diuretics on hold at this time due to reduced PO fluid intake
-Monitor Daily Weights
Paroxysmal Atrial Fibrillation
-Eliquis on hold due to GI bleed
-Coreg on hold due to hypotension - Monitor heart rate
Diabetes Mellitus, Type II
-Oral diabetic meds on hold while NPO
-Monitor sugars and continue coverage insulin
Essential Hypertension
Initially hypotensive in the emergency department
-BP medications on hold as patient was initially hypotensive in the emergency department
Hyperlipidemia
-Continue Atorvastatin
Asthma, no acute exacerbation
-Continue albuterol prn
Psoriasis
-Patient maintained on methotrexate as outpatient
Obesity due to Excess Calories
-Affects all aspects of care
DVT Prophylaxis: SCDs only until able to resume Eliquis
Code Status: Full Code
Gastrointestinal bleeding in the setting of ulcer and needing red blood cells transfusion and continued monitoring in IMU is a high risk encounter.
Anticipated Discharge: > 48 hours
Subjective/Interval History
-
Date of Service: April 15, 2025
Patient was seen and examined. He denied any new symptoms.
Objective Data
-
Labs:
Laboratory Results
04/14/25 04/15/25 04/15/25
20:28 01:21 01:21
WBC 16.9 H
Hgb 7.0 L Cancelled 6.7 L*
Hct 20.9 L* Cancelled
Plt Count
Sodium
Potassium
Chloride
Carbon Dioxide
BUN
Creatinine
Glucose
Calcium
04/15/25 04/15/25
01:21 07:09
WBC
Hgb 7.6 L
Hct 20.2 L* 23.1 L
Plt Count 204
Sodium 140
Potassium 4.0
Chloride 111 H
Carbon Dioxide 24
BUN 76 H
Creatinine 0.8
Glucose 125 H
Calcium 8.3 L
Vital Signs:
Vital Signs
Temp Pulse Resp BP Pulse Ox
98.8 F 83 19 133/46 98
04/15/25 07:36 04/15/25 06:00 04/15/25 06:00 04/15/25 06:00 04/15/25 04:52
I&O
04/14/25 04/15/25 04/16/25
06:59 06:59 06:59
Intake Total 500 / 500
Output Total 1200 / 1200
Balance -700 / -700
[2025-04-15] MEDS: FLOMAX PO (08:52)
[2025-04-15] MEDS: FOLVITE PO (08:53)
[2025-04-15] MEDS: PERCOCET 5/325 PO (08:53)
[2025-04-15] MEDS: LIPITOR PO (08:53)
[2025-04-15] MEDS: REGLAN 10 MG IV (09:51)
[2025-04-15 12:05] LABS: Glucose - Point of Care 126 mg/dl (70-99)
--- NOTE | 2025-04-15 13:07 | PTCARENOTE ---
Assumed care of patient at beginning of this shift from previous RN with protonix drip infusing as ordered. Patient c/o nausea and stated he was unable to take morning po meds; Dr Pham and Dr Ross made aware. Reglan ordered and given as
patient was not due for zofran. Patient received blood transfusion overnight; H&H 7.6/23.1. Currently in GI lab. See worklist for full assessment and vital signs.
[2025-04-15 13:36] LABS: Glucose - Point of Care 133 mg/dl (70-99)
--- NOTE | 2025-04-15 13:54 | W.PN.UPDATE ---
Update Note
Progress Note Update
Discussed with family agreeable to cscope
will schedule for tmwr
[2025-04-15] MEDS: PERCOCET 5/325 1 TABLET PO ×2 (15:50→20:08)
[2025-04-15 16:58] LABS: Albumin 3.1 g/dl (3.5-5.0)
[2025-04-15 17:11] LABS: Hematocrit 21.2 % (39.0-52.0); Hemoglobin 6.8 g/dL (13.0-18.0)
[2025-04-15] MEDS: ASPIR LOW (ENTERIC COATED) 81 MG PO (17:34)
[2025-04-15] MEDS: CYANOCOBALAMIN 1000 MCG IM (17:35)
[2025-04-15] MEDS: NOVOLOG FLEXPEN-MODERATE RESISTANCE 1 UNITS SC (17:38)
[2025-04-15 17:48] LABS: Glucose - Point of Care 161 mg/dl (70-99)
[2025-04-15] MEDS: GAVILAX 238 GM PO (18:35)
[2025-04-15] MEDS: PROTONIX 40 MG PO (20:08)
[2025-04-15] MEDS: ATIVAN 2 MG PO (22:25)
[2025-04-15 22:50] LABS: Glucose - Point of Care 129 mg/dl (70-99)
[2025-04-15 23:41] LABS: Hematocrit 24.3 % (39.0-52.0); Hemoglobin 7.9 g/dL (13.0-18.0)
[2025-04-16] VITALS (24 sets, daily range): BP systolic 97–133; BP diastolic 40–87; BMI 42.8
--- NOTE | 2025-04-16 01:14 | PTCARENOTE ---
FU hgb 7.9, RESIDENT PHYSICIAN ordered 1u pRBC's. pRBCs started, will continue to monitor patient closely.
[2025-04-16] MEDS: MIRALAX 119 GRAMS PO ×2 (05:08→08:20)
--- NOTE | 2025-04-16 05:20 | PTCARENOTE ---
Addendum entered by Imani Sweet RN 04/16/25 06:01:
RN answered patient questions, active listening provided. Patient states he will only drink the Miralax if it can be in diet kaela hiral. RN mixed with diet kaela hiral. Cups placed at bedside, encouragement provided.
Original Note:
Patient is refusing am Miralax. RN explained the possible outcomes if not drinking the Miralax; not getting the colonoscopy, not finding a possible source of the bleeding, etc. Patient verbalizes understanding and states, 'I just cant drink any more
of it, I cant do it again'. RN notified TIME STUDY CLERK with patient refusal.
[2025-04-16 06:02] LABS: Hematocrit 26.0 % (39.0-52.0); Hemoglobin 8.4 g/dL (13.0-18.0); Mean Corp Hgb Conc. 32.3 g/dL (33.0-37.0); Mean Corpuscular Volume 95.9 fL (80.0-94.0); Nucleated Red Blood Cells % 0.7 % (-); Platelet Count 175 10^3/uL (130-400); Red Cell Dist. Width 18.3 % (11.5-14.5)
[2025-04-16 06:21] LABS: Glucose - Point of Care 115 mg/dl (70-99)
[2025-04-16 06:23] LABS: Blood Urea Nitrogen 30 mg/dl (9-20); Calcium 8.3 mg/dl (8.4-10.2); Carbon Dioxide 27 mmol/L (22-30); Chloride 112 mmol/L (98-107); Estimated Creatinine Clearance > 125 ml/min; Glucose 101 mg/dl (70-99); Potassium 3.9 mmol/L (3.5-5.1); Sodium 142 mmol/L (135-145); eGFR > 60.00
--- NOTE | 2025-04-16 06:24 | W.PN.UPDATE ---
Update Note
Progress Note Update
hgb 7.9, no active bleeding, stable Vs. will transfuse 1 unit of PRBC's.
[2025-04-16] MEDS: ASPIR LOW (ENTERIC COATED) 81 MG PO (08:18)
[2025-04-16] MEDS: DESENEX/MITRAZOL/ZEASORB 1 APPLIC TOPICAL ×2 (08:19→19:43)
[2025-04-16] MEDS: FLOMAX 0.4 MG PO (08:19)
[2025-04-16] MEDS: FOLVITE 1 MG PO (08:19)
[2025-04-16] MEDS: CYANOCOBALAMIN 1000 MCG IM (08:19)
[2025-04-16] MEDS: LIPITOR 80 MG PO (08:20)
[2025-04-16] MEDS: NOVOLOG FLEXPEN-MODERATE RESISTANCE SC ×3 (08:20→17:07)
[2025-04-16] MEDS: PROTONIX 40 MG PO ×2 (08:21→19:43)
[2025-04-16] MEDS: PERCOCET 5/325 1 TABLET PO ×2 (08:21→19:43)
[2025-04-16 08:31] LABS: Glucose - Point of Care 119 mg/dl (70-99)
--- NOTE | 2025-04-16 09:30 | W.PN.HOSP.TC ---
Today's Communication/Plan
-
Colonoscopy today
Monitor H&H
Assessment / Plan
Assessment / Plan
Physical Exam
General: Comfortable, Conversant
HEENT: Normocephalic. Moist mucous membranes
Respiratory: Clear and Non Labored Respirations Bilaterally.
Cardiac: S1/S2 and Regular Rhythm
GI: Soft and Non Tender. Positive bowel sounds.
Musculoskeletal: No Cyanosis and Other (+2 pitting edema bilateral lower extremities)
Skin: Warm and Dry
Neuro: Awake, Alert, Oriented and Nonfocal/grossly intact
Psych: Calm
Assessment/Plan
75 y/o male with past medical history of CAD, CHF, A-Fib, DM and HTN who presented with weakness and shortness of breath. Patient was recently hospitalized from March 26, 2025 to April 05, 2025 for acute heart failure. Patient was initially discharged
to a SNF and recently returned home. He reported persistent weakness and shortness of breath. He reported occasional dizziness. He reported lower extremity is persistent but about the same as when he was discharge from the hospital. He denied chest
pain. Work-up in ED revealed acute anemia with a drop in Hgb from 11 to 7.5. At the time of admission, patient denied any abdominal pain, nausea, vomiting, diarrhea or black stools. He does not use NSAIDs on a regular basis. He denied prior history
of GI bleed and has never had a previous upper endoscopy or colonoscopy.
Generalized Weakness, Shortness of Breath and Occasional Dizziness
Symptomatic Acute Blood Loss Anemia secondary to GI Bleed
Initially hypotensive in the emergency department
-Iron Studies unremarkable
-Vitamin B12 closer to the lower end of normal at 281 -- started Vitamin B12 supplementation
-Folate level normal
-So far this hospitalization, 4 units total PRBCs have been transfused
-Monitor serial Hgb
GI Bleed, likely upper in nature in setting of black color stool
Gastric erosion with no stigmata of recent bleeding on EGD from 04/15/25
Non-bleeding gastric ulcer with no stigmata of bleeding, on EGD from 04/15/25 -- suspected from NSAIDs
Single non-bleeding angioectasia in the duodenum (treated with argon plasma coagulation (APC)), on EGD from 04/15/25
Non-bleeding duodenal diverticulum on EGD from 04/15/25
-Consult GI
-EGD findings are as above. Follow-up biopsy results from stomach biopsy.
-CLD diet today
-Continue Protonix IV (Protonix gtt discontinued)
-Hold Eliquis
-Continue Aspirin (I also confirmed with GI that the Aspirin should be continued)
-Avoid all NSAIDs (patient was taking 5 ibuprofen a day).
-The small ulcer likely from NSAIDs given significant bleeding, small size of ulcer, benign appearance was not biopsied with risk of further bleeding; since not biopsied technically need repeat EGD 8 weeks r/b given overall
clinical status will have follow up in office to discuss although suspicion is low, as per GI.
-Based on significant drop in Hgb with no significant source on EGD from 04/15/25 -- colonoscopy planned for TODAY 04/16/25
-Patient may also have had more AVMs in small bowel or diverticulum in duodenum could have bled and stopped.
-Continue to trend Hgb and transfuse PRBCs to maintain Hgb>8
Coronary Artery Disease s/p LAD Stent 2019
-Continue Aspirin
Chronic HFpEF
-Diuretics on hold at this time due to reduced PO fluid intake
-Monitor Daily Weights
Paroxysmal Atrial Fibrillation
Yes, GI bleed is related to/associated with/exacerbated by Eliquis
-Eliquis on hold due to GI bleed
-Coreg on hold due to hypotension - Monitor heart rate
Diabetes Mellitus, Type II
-Oral diabetic meds on hold while NPO
-Monitor sugars and continue coverage insulin
Essential Hypertension
Initially hypotensive in the emergency department
-BP medications on hold as patient was initially hypotensive in the emergency department
Hyperlipidemia
-Continue Atorvastatin
Asthma, no acute exacerbation
-Continue albuterol prn
Psoriasis
-Patient maintained on methotrexate as outpatient
Obesity due to Excess Calories
-Affects all aspects of care
DVT Prophylaxis: SCDs only until able to resume Eliquis
Code Status: Full Code
Gastrointestinal bleeding in the setting of ulcer and needing red blood cells transfusion and continued monitoring in IMU is a high risk encounter.
Anticipated Discharge: 24 - 48 hours
Subjective/Interval History
-
Date of Service: April 16, 2025
Patient was seen and examined. He denied any fever, cough, dysuria, new skin redness or swelling or any other complaints. He appeared to be more alert today.
Objective Data
-
Labs:
Laboratory Results
04/15/25 04/16/25
23:25 05:26
WBC 9.8
Hgb 7.9 L 8.4 L
Hct 24.3 L 26.0 L
Plt Count 175
Sodium 142
Potassium 3.9
Chloride 112 H
Carbon Dioxide 27
BUN 30 H
Creatinine 0.6 L
Glucose 101 H
Calcium 8.3 L
Vital Signs:
Vital Signs
Temp Pulse Resp BP Pulse Ox
97.9 F 78 17 122/48 99
04/16/25 07:09 04/16/25 03:43 04/16/25 03:43 04/16/25 03:43 04/16/25 03:43
I&O
04/15/25 04/16/25 04/17/25
06:59 06:59 06:59
Intake Total 500 / 500 2577 / 2577
Output Total 1200 / 1200 1875 / 1875
Balance -700 / -700 702 / 702
--- NOTE | 2025-04-16 11:10 | PTCARENOTE ---
Received pt this am in bed, working on 6am miralax. Pt encouraged to finish, given another dose due at 8am. Prior to 8am dose, pt had large loose black/brown bm requiring entire linen change. Noted dyspnea on exertion/flat. Maintained sats on
2lnc 98-100, left on for comfort given increased work of breathing. Otherwise please refer to assessment.
--- NOTE | 2025-04-16 11:39 | PN.CDI ---
CDI
- -
CDI:
Physician Documentation Request
Admit Date: 04/14/25 13:29
Dear Doctor Ankit,
Patient admitted for GI bleed.
04/15 Update Note: 'Critical lab: Hgb 6.7/Hct 20.2. Ordered 1 unit PRBC's to be given tonight. Repeat H&H in am.'
04/15 Hospitalist PN: 'Symptomatic Anemia secondary to GI Bleed...Vitamin B12 closer to the lower end of normal at 281 -- so will start Vitamin B12 supplementation'
Laboratory Tests
04/15/25 04/15/25 04/15/25
01:21 07:09 16:56
Hgb 6.7 L* 7.6 L 6.8 L*
Based on the above, could you clarify, in your progress note, which of the following is the most likely type of anemia you are evaluating, monitoring and/or treating?
Acute blood loss anemia
Acute blood loss anemia with baseline chronic anemia (Specify type)
Vitamin B deficiency anemia - indicate3 etiology, such as intrinsic factor deficiency, malabsorption, transcobalamin II deficiency, dietary etc.
Other
Use of terms such as suspected, likely, concern for, or probable (associated with a specific diagnosis that is being evaluated, monitored, or treated as if it exists) are acceptable and can be coded in the inpatient setting, when documented at the
time of discharge.
Thank you,
Lili Falcon RN, BSN
CDI Specialist
Available via [place] text
Please use your independent medical judgment in providing your response.
--- NOTE | 2025-04-16 11:42 | PN.CDI ---
CDI
- -
CDI:
Physician Documentation Request
Admit Date: 04/14/25 13:29
Dear Doctor Ankit,
Patient admitted for GI bleed.
H&P: 'GI Bleed, likely upper in nature in setting of black color stool...Hold Eliquis and Aspirin'
Please clarify the relationship between these conditions:
Yes, GI bleed is related to/associated with/exacerbated by Eliquis.
No, GI bleed is not related to/associated with/exacerbated by Eliquis but it is due to ___. (Please specify)
Unable to determine
Use of terms such as suspected, likely, concern for, or probable (associated with a specific diagnosis that is being evaluated, monitored, or treated as if it exists) are acceptable and can be coded in the inpatient setting, when documented at the
time of discharge.
Thank you,
Lili Falcon RN, BSN
CDI Specialist
Available via [place] text
Please use your independent medical judgment in providing your response.
--- NOTE | 2025-04-16 12:34 | CM ---
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
Requested PT/OT once medically appropriate
Bedside meeting with pt- anticipate SNFs recs
Pt does not to go to SNF on dc- he was recently at [facility]
He noted he resides with older son who works out of the home
His younger son comes to care for him during the days
He is current with VN but does not know provider name, noted they are based in [place]
Offered call to family but he declined- he will provide name of VN provide tomorrow to CM
He noted he is uncertain if he receives home based services through his [facility] plan
Plan to follow up with pt on current [facility]N provider
Pt currently on 2L O2- he does not have home O2 or nebulizer
Discharge Disposition- SNF recs anticipated vs home with [facility] and family support, watch for O2 needs
[2025-04-16 13:04] LABS: Glucose - Point of Care 130 mg/dl (70-99)
--- NOTE | 2025-04-16 14:43 | PTCARENOTE ---
Pt incontinent of multiple loose dk brown stools since shift began. Rectal trumpet placed given pt sleeping, not alerting staff consistently and already with masd. Dr Ross aware and tap water enemas ordered and given until clear. Pt tolerated
well, total of 3 liters given to clear. Dr Ross aware.
[2025-04-16 17:05] LABS: Glucose - Point of Care 126 mg/dl (70-99)
[2025-04-16 19:58] LABS: Hematocrit 25.8 % (39.0-52.0); Hemoglobin 8.1 g/dL (13.0-18.0)
[2025-04-16] MEDS: ADVAIR HFA 230/21 MCG INHALER 2 PUFF INH (21:06)
[2025-04-16] MEDS: ATIVAN 2 MG PO (21:32)
[2025-04-16 21:39] LABS: Glucose - Point of Care 190 mg/dl (70-99)
--- NOTE | 2025-04-16 23:38 | PTCARENOTE ---
Caring for pt overnight. aaox3. c/o bilateral leg pain and generalized feeling of not feeling well per pt. NSR. Remains 2LHS. VSS. No bm's so far. NO signs of bleeding. 8p H&H stable. Will continue to monitor.
[2025-04-17] VITALS (32 sets, daily range): BP systolic 99–129; BP diastolic 33–105; BMI 42.9
[2025-04-17 05:24] LABS: Hematocrit 23.7 % (39.0-52.0); Hemoglobin 7.5 g/dL (13.0-18.0); Mean Corp Hgb Conc. 31.6 g/dL (33.0-37.0); Mean Corpuscular Volume 96.3 fL (80.0-94.0); Nucleated Red Blood Cells % 0 % (-); Platelet Count 168 10^3/uL (130-400); Red Cell Dist. Width 17.9 % (11.5-14.5)
[2025-04-17 05:53] LABS: Blood Urea Nitrogen 15 mg/dl (9-20); Calcium 8.0 mg/dl (8.4-10.2); Carbon Dioxide 28 mmol/L (22-30); Chloride 111 mmol/L (98-107); Estimated Creatinine Clearance > 125 ml/min; Glucose 117 mg/dl (70-99); Potassium 4.0 mmol/L (3.5-5.1); Sodium 139 mmol/L (135-145); eGFR > 60.00
[2025-04-17] MEDS: NOVOLOG FLEXPEN-MODERATE RESISTANCE SC (08:06)
[2025-04-17 08:11] LABS: Glucose - Point of Care 125 mg/dl (70-99)
[2025-04-17] MEDS: FOLVITE 1 MG PO (08:55)
[2025-04-17] MEDS: ASPIR LOW (ENTERIC COATED) 81 MG PO (08:55)
[2025-04-17] MEDS: PROTONIX 40 MG PO ×2 (08:55→19:42)
[2025-04-17] MEDS: PERCOCET 5/325 1 TABLET PO ×2 (08:55→19:42)
[2025-04-17] MEDS: DESENEX/MITRAZOL/ZEASORB 1 APPLIC TOPICAL (08:56)
[2025-04-17] MEDS: CYANOCOBALAMIN 1000 MCG IM (08:56)
[2025-04-17] MEDS: MIRALAX PO (08:56)
[2025-04-17] MEDS: LIPITOR 80 MG PO (08:56)
[2025-04-17] MEDS: FLOMAX 0.4 MG PO (08:56)
--- NOTE | 2025-04-17 10:46 | W.PN.HOSP.TC ---
Today's Communication/Plan
-
Hgb drop again -- another 1 unit of PRBC -- could be Hgb equilibration as no BM/bloody BM noted overnight
Plan to resume Eliquis tomorrow if Hgb stable and no evidence of GI bleed
Aspirin can be stopped as per cardiology
Cardizem Drip for A-Fib with RVR. Resume lower than home dose Coreg.
Assessment / Plan
Assessment / Plan
Physical Exam
General: Comfortable, Conversant
HEENT: Normocephalic. Moist mucous membranes
Respiratory: Clear and Non Labored Respirations Bilaterally.
Cardiac: S1/S2 and Regular Rhythm
GI: Soft and Non Tender. Positive bowel sounds.
Musculoskeletal: No Cyanosis and Other (+2 pitting edema bilateral lower extremities)
Skin: Warm and Dry
Neuro: Awake, Alert, Oriented and Nonfocal/grossly intact
Psych: Calm
Assessment/Plan
75 y/o male with past medical history of CAD, CHF, A-Fib, DM and HTN who presented with weakness and shortness of breath. Patient was recently hospitalized from March 26, 2025 to April 05, 2025 for acute heart failure. Patient was initially discharged
to a SNF and recently returned home. He reported persistent weakness and shortness of breath. He reported occasional dizziness. He reported lower extremity is persistent but about the same as when he was discharge from the hospital. He denied chest
pain. Work-up in ED revealed acute anemia with a drop in Hgb from 11 to 7.5. At the time of admission, patient denied any abdominal pain, nausea, vomiting, diarrhea or black stools. He does not use NSAIDs on a regular basis. He denied prior history
of GI bleed and has never had a previous upper endoscopy or colonoscopy.
Generalized Weakness, Shortness of Breath and Occasional Dizziness
Symptomatic Acute Blood Loss Anemia secondary to GI Bleed
Initially hypotensive in the emergency department
-Iron Studies unremarkable
-Vitamin B12 closer to the lower end of normal at 281 -- started Vitamin B12 supplementation
-Folate level normal
-So far this hospitalization, 5 units total PRBCs have been transfused
-Monitor serial Hgb
GI Bleed, likely upper in nature in setting of black color stool
Gastric erosion with no stigmata of recent bleeding on EGD from 04/15/25
Non-bleeding gastric ulcer with no stigmata of bleeding, on EGD from 04/15/25 -- suspected from NSAIDs
Single non-bleeding angioectasia in the duodenum (treated with argon plasma coagulation (APC)), on EGD from 04/15/25
Non-bleeding duodenal diverticulum on EGD from 04/15/25
Single non-bleeding colonic angioectasia (Injected and treated with APC) from colonoscopy 04/16/25
Single non-bleeding colonic angioectasia (treated with APC) from colonoscopy 04/16/25
Three 4 to 12 mm, non-bleeding polyps in the cecum, at the ileocecal valve and in the transverse colon from colonoscopy 04/16/25
-EGD findings are as above. Follow-up biopsy results from biopsies
-Diabetic Diet now
-Continue Protonix IV (Protonix gtt discontinued)
-Still holding Eliquis -- Eliquis planned to be resumed on 04/18/25 morning as long as Hgb remains stable and no bleeding
-Avoid all NSAIDs (patient was taking 5 ibuprofen a day).
-The small ulcer likely from NSAIDs given significant bleeding, small size of ulcer, benign appearance was not biopsied with risk of further bleeding; since not biopsied technically need repeat EGD 8 weeks r/b given overall
clinical status will have follow up in office to discuss although suspicion is low, as per GI.
-Based on significant drop in Hgb with no significant source on EGD from 04/15/25 -- colonoscopy was done with findings above
-Patient may also have had more AVMs in small bowel or diverticulum in duodenum could have bled and stopped -- will need video capsule endoscopy outpatient
-5th unit PRBC being given on 04/17/25 -- the Hgb drop on 04/17/25 could have been equilibration of the Hgb as no BM/bloody BM was noted overnight
-Continue to trend Hgb and transfuse PRBCs to maintain Hgb>8
Coronary Artery Disease s/p LAD Stent 2019
-Aspirin was initially continued, but per cardiology, as last stenting was in 2019, would stop Aspirin to attempt to reduce future bleeding risk
A-Fib with RVR
Paroxysmal Atrial Fibrillation
Yes, GI bleed is related to/associated with/exacerbated by Eliquis
-Eliquis on hold due to GI bleed
-Cardizem Drip started on 04/17/25 due to A-Fib with RVR
-Coreg has been on hold due to hypotension - resume Coreg at 3.125 mg BID (half the home dose) on 04/17/25 given A-Fib RVR
-Cardiology consulted
Chronic HFpEF
-Diuretics on hold at this time due to reduced PO fluid intake
-Monitor Volume Status and Daily Weights
Nocturnal Hypoxia
-Could be LISA or OHS
-Will need outpatient sleep study
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
Diverticulosis in the sigmoid colon
Internal hemorrhoids
-Seen on colonoscopy from 04/16/24
Diabetes Mellitus, Type II
-Oral diabetic meds on hold while NPO
-Monitor sugars and continue coverage insulin
-Continue Diabetic Diet
Essential Hypertension
Initially hypotensive in the emergency department
-BP medications on hold as patient was initially hypotensive in the emergency department
Hyperlipidemia
-Continue Atorvastatin
Asthma, no acute exacerbation
-Continue albuterol prn
Psoriasis
-Patient maintained on methotrexate as outpatient
Obesity due to Excess Calories
-Affects all aspects of care
DVT Prophylaxis: SCDs only until able to resume Eliquis
Code Status: Full Code
Gastrointestinal bleeding in the setting of ulcer and needing red blood cells transfusion and continued monitoring in IMU is a high risk encounter.
Anticipated Discharge: 24 - 48 hours
Subjective/Interval History
-
Date of Service: April 17, 2025
Patient was seen and examined. He denied any fever, chest pain, dizziness or any other complaints.
Objective Data
-
Labs:
Laboratory Results
04/17/25
05:10
WBC 7.6
Hgb 7.5 L
Hct 23.7 L
Plt Count 168
Sodium 139
Potassium 4.0
Chloride 111 H
Carbon Dioxide 28
BUN 15
Creatinine 0.6 L
Glucose 117 H
Calcium 8.0 L
Vital Signs:
Vital Signs
Temp Pulse Resp BP Pulse Ox
97.7 F 71 17 118/51 86
04/17/25 09:47 04/17/25 09:47 04/17/25 09:47 04/17/25 09:47 04/17/25 10:10
I&O
04/16/25 04/17/25 04/18/25
06:59 06:59 06:59
Intake Total 2577 / 2577 960 / 960 0 / 0
Output Total 1875 / 1875 1625 / 1625
Balance 702 / 702 -665 / -665 0 / 0
[2025-04-17] MEDS: NOVOLOG FLEXPEN-MODERATE RESISTANCE 1 UNITS SC ×2 (12:40→17:52)
[2025-04-17 12:43] LABS: Glucose - Point of Care 191 mg/dl (70-99)
[2025-04-17] MEDS: CARDIZEM 125 IV (14:21)
--- NOTE | 2025-04-17 14:27 | PTCARENOTE ---
Patient received one unit of PRBCs this morning as per doctors orders for Hgb of 7.5. No signs of bleeding today, no nausea. Patient s tolerating solid foods. This afternoon heart rate converted to uncontrolled afib with RVR. Notified Dr. Pham
immediately EKG completed. Patient complaining of feeling anxious. Cardizem drip initiated and will be titrated per protocol.
--- NOTE | 2025-04-17 14:30 | PTCARENOTE ---
Patients approached nurse this morning asking for information. Patient stated earlier in the shift that he had not spoken to his in two years she was not listed in the chart. Asked patient if it was okay to update his and patient
verbalized permission. Patient updated his himself initially and then asked to nurse to further explain.
--- NOTE | 2025-04-17 14:34 | CON.CAR ---
Addendum entered and electronically signed by Jeevan Eastman MD 04/17/25 15:55:
I saw and examined the patient.
The TELEPHONE OPERATORS SUPERVISOR or PA's note was reviewed and I agree with the note.
Comment: General: Well developed, well nourished in NAD.
Neck: Supple, no JVD, HJR, carotids +2 B/L, no bruits bilaterally.
Heart: Non displaced PMI, Irregular, no murmurs, No S3, S4, no rubs.
Lungs: Clear to auscultation bilaterally, no wheeze, rhonchi, rubs bilaterally,
normal expiratory phase.
Skin: Appears pale
Extremities: No clubbing, cyanosis or edema bilaterally.
Neuro: Grossly nonfocal, awake, alert and oriented x3.
Valdez has a history of CAD, CHF, diabetes, hypertension, hyperlipidemia, tobacco abuse, obesity, chronic back pain and asthma. He was admitted in March 2025 for acute diastolic CHF and refused visiting nurses upon discharge. He has been taking
Advil for leg pain. He presents and was pale with hypotension with hemoglobin of 6.7 and back in atrial fibrillation. Cardiology consulted for A-fib and anticoagulation decisions with likely GI bleed.
Will hold anticoagulation and await GI evaluation. Will treat for CHF with IV Lasix especially given transfusions. Eventually reassess possible establishment of sinus rhythm when GI bleed has been stabilized. He needs to avoid nonsteroidals while
on anticoagulation.
Original Note:
Consultation
Consultation Request
Date/Time Consultation Performed: 04/17/25
Requesting Provider: Dr. Pham
Performing Provider: Kerri Hart PA-C for Dr. Eastman
Reason for Consultation: afib
Medical History
-
Chief Complaint: fatigue
History of Present Illness:
Patient is a 75-year-old male with past medical history for coronary artery disease, type 2 diabetes, hypertension, hyperlipidemia, tobacco abuse, obesity, heart failure with preserved ejection fraction, chronic back pain and asthma. Patient was
previously followed by Dr. Xiong and was last seen in cardiology office in 2019 now reporting he follows with [place] chief medical technologist Dr. Almazan. He was admitted to [facility] 03/26 - 04/05/2025 for acute CHF. He refused
visiting nurses upon discharge. He states since discharge his weight has continued to trend down. He then started noticing fatigue. He states he has been taking Advil for leg pain. He was pale with hypotension on arrival to ER with hemoglobin
down to 6.7. He underwent EGD with evidence of a small gastric ulcer on 04/15/2025 and then underwent colonoscopy 04/16/2025 which showed several AVMs, but no clear evidence of bleeding. He is planned for outpatient capsule study. Cardiology
consulted as patient went into atrial fibrillation with RVR around 1:45 PM today. Patient asymptomatic.
Past medical history:
Coronary artery disease
SPIRAL TUBE WINDER of PDA on cath 2018
Status post mid LAD 3.5 x 28 mm Promus LISANDRO April 2019
Heart failure with previously ejection fraction
Hypertension
Hyperlipidemia
Paroxysmal atrial fibrillation
Chronic anticoagulation on Eliquis
Obesity
Tobacco abuse
Chronic back pain
Asthma
Past Medical History
Past Medical History: Other (See HPI)
Past Surgical History: Orthopedic (Multiple Interlaminar Epidural Steroid Injections )
Social History
Tobacco: Former Smoker (Quit 2023)
Alcohol: None
Drug: None
Personal: Other ()
Living: With Family (Lives with son)
Employment: Retired
Family History
Family History: CAD (Father)
Allergies / Home Medications
Allergy/AdvReac Type Severity Reaction Status Date / Time
pollen extracts Allergy HAYFEVER-NASAL Verified 04/14/25 11:12
SYMPTOMS
�Medication �Instructions �Recorded �Confirmed �Type
clonidine HCl 0.1 mg tablet 0.1 mg PO HS Blood Pressure 04/15/19 04/14/25 History
dapagliflozin propanediol 10 mg 10 mg PO DAILY Diabetes 04/15/19 04/14/25 History
tablet (Farxiga)
albuterol sulfate 90 mcg/actuation 2 puff inhalation R Q6HPRN PRN 03/26/25 04/14/25 History
aerosol inhaler wheezing
apixaban 5 mg tablet (Eliquis) 5 mg PO Q12H Blood Clot 03/26/25 04/14/25 History
Prevention/Tx
aspirin 81 mg tablet,delayed 81 mg PO DAILY Blood Clot 03/26/25 04/14/25 History
release Prevention/Tx
atorvastatin 80 mg tablet 80 mg PO DAILY High Cholesterol 03/26/25 04/14/25 History
carvedilol 6.25 mg tablet 6.25 mg PO Q12H Blood Pressure 03/26/25 04/14/25 History
fluticasone 500 mcg-salmeterol 50 0 inh inhalation .SEE BELOW 03/26/25 04/14/25 History
mcg/dose blistr powdr for PRN sob
inhalation (Advair Diskus)
ipratropium bromide 17 2 puff inhalation R HSPRN PRN sob 03/26/25 04/14/25 History
mcg/actuation HFA aerosol inhaler
(Atrovent HFA)
blood sugar diagnostic (Contour ##100 03/28/25 04/14/25 Rx
Next Test Strips)
glipizide 5 mg tablet, extended 5 mg PO DAILY #30 tabs 03/28/25 04/14/25 Rx
release 24 hr
lancets 21 gauge (Color Lancets) ##100 03/28/25 04/14/25 Rx
furosemide 40 mg tablet 40 mg PO BID AT 0800,1600 #60 tabs 04/05/25 04/14/25 Rx
lorazepam 1 mg tablet 2 mg (2 x 1 mg) PO HS Mental 04/05/25 04/14/25 Rx
Health/Anxiety #3 tabs
metformin 500 mg tablet 500 mg PO BID@0800,1700 #0 tabs 04/05/25 04/14/25 Rx
oxycodone-acetaminophen 5 mg-325 1 tab PO BID Pain #6 tabs 04/05/25 04/14/25 Rx
mg tablet
polyethylene glycol 3350 17 gram 17 g PO DAILY #0 ea 04/05/25 04/14/25 Rx
oral powder packet
potassium chloride 20 mEq 40 meq (2 x 20 mEq) PO DAILY #0 04/05/25 04/14/25 Rx
tablet,extended release(part/cryst) tabs
sennosides 8.6 mg-docusate sodium 2 tab PO BID #0 tabs 04/05/25 04/14/25 Rx
50 mg tablet
spironolactone 25 mg tablet 12.5 mg (1/2 x 25 mg) PO DAILY #0 04/05/25 04/14/25 Rx
tabs
tamsulosin 0.4 mg capsule 0.4 mg PO DAILY #0 caps 04/05/25 04/14/25 Rx
tramadol 50 mg tablet 50 mg PO BIDPRN PRN mild pain #6 04/05/25 04/14/25 Rx
tabs
methotrexate sodium 2.5 mg tablet 20 mg PO SA Psoriasis 04/14/25 04/14/25 History
Review of Systems
-
History Source: Patient
All other systems: Negative unless noted
Physical Exam
Vital Signs
Temp Pulse Resp BP Pulse Ox
97.9 F 112 18 125/54 93
04/17/25 12:46 04/17/25 14:00 04/17/25 14:00 04/17/25 14:00 04/17/25 13:41
Lab Results
04/17/25 05:10
04/17/25 05:10
Troponin I 0.018 ng/ml 04/14/25 11:34
Izt-G-Gtftijqzymn Pept 930 pg/ml 04/14/25 11:10
Physical Exam
General: No Apparent Distress, Comfortable and Other (obese. on supp O2)
HEENT: Normocephalic, Anicteric and Moist Mucous Membranes
Respiratory: Clear and Non Labored Respirations
Cardiac: S1/S2 and Irregular Rhythm
GI: Soft, Non Tender, Non Distended and Normal Bowel Sounds
Musculoskeletal: No Clubbing, No Cyanosis and Edema (trace of B/L LE)
Skin: Warm and Dry
Neuro: AO x 3
Impression / Plan
-
PCP: Chester Wilson
Manager Progressive Care: Previously followed by Dr. Xiong, now follows with Dr. Almazan at [facility]
Assessment:
Presentation with fatigue
Acute blood loss anemia
Recent NSAID use
Small gastric ulcer noted by EGD 04/15/25
Paroxysmal atrial fibrillation, now with RVR
Chronic anticoagulation on Eliquis
Admission to [facility] 03/2025 for acute HFpEF
Coronary artery disease
SPIRAL TUBE WINDER of PDA on cath 2018
Status post mid LAD 3.5 x 28 mm Promus LISANDRO April 2019
Hypertension
Hyperlipidemia
Obesity
Tobacco abuse
Chronic back pain
Asthma
Echo 06/26/2020: TDS: EF 63%. Mild concentric LVH. No significant valvular disease
Echo 03/27/2025: EF 60 to 65%, mild to moderate concentric LVH. Mild MR.
Plan:
- Patient with recent admission to [facility] 03/2025 for acute CHF during which she lost 30+ pounds, then presented back to hospital due to fatigue and was noted to have acute anemia with hemoglobin down to 6.7, requiring 3U PRBCs thus far. He admits to
recent NSAID use in the setting of leg pain. By EGD on 04/15 noted to have small gastric ulcer. He is planned for outpatient capsule study per GI.
- We discussed avoiding NSAIDs moving forward
- Eliquis remains on hold, tentative plan to resume in am if hemoglobin remains stable. He was also on aspirin prior to admission. as last stenting was in 2018, would stop aspirin to attempt to reduce future bleeding risk
- Today around 1:45 PM, patient noted to go into atrial fibrillation with RVR. EKGs from 04/14 as well as 04/17 reviewed by me. He is asymptomatic. He was started on Cardizem drip at 5, uptitrate as needed for improved rate control. Hopefully will
spontaneously convert to sinus rhythm. Will also resume outpatient Coreg at lower dose of 3.125 mg twice daily and uptitrate as needed (was on 6.25 mg twice daily prior to admission)
- Follow volume status closely as with recent blood transfusions and in rapid A-fib at present. Follow daily weights. No complaints of shortness of breath at present. Continue to wean supplemental oxygen as able. presently not on lasix, was
previously discharged on po lasix 40mg BID. would attempt to resume in next 24 hours as BP tolerates
- Echo last admission from 03/27/2025 reviewed and with results as above
- Recommended visiting nurses upon discharge and patient is agreeable
Data Reviewed
-
EKG: Tracing Personally Visualized and interpreted
Medical Tests (Nuc Med, Echo etc): Report Reviewed by me
Labs: Labs Reviewed by me
Old Records: Reviewed
[2025-04-17] MEDS: TYLENOL 650 MG PO (14:52)
--- NOTE | 2025-04-17 15:41 | W.PN.UPDATE ---
Update Note
Progress Note Update
I communicated with cardiology that the Aspirin should only be stopped when Eliquis is being resumed. Will leave Aspirin as active order for now.
--- NOTE | 2025-04-17 16:13 | PTCARENOTE ---
Patient is now on Cardizem drip at 15ml/ hour. Heart rate continues to be in afib in the 80s. Patients pain treated with Tylenol, Patient is now sleeping. Patient requires oxygen when sleeping. Dr. Pham notified.
--- NOTE | 2025-04-17 16:56 | W.PN.GI.CBS2 ---
Addendum entered and electronically signed by Elidia Triana MD 04/17/25 18:26:
I saw and examined the patient.
The BRICK HANDLER or PA's note was reviewed and I agree with the note.
Comment: Patient without any abdominal pain, nausea or vomiting. No BM today. He did receive 1 unit of packed red blood cell today for drop in hemoglobin. He is tolerating ADA diet.
- Melena, hemodynamically stable
Upper endoscopy 04/15-nonbleeding gastric ulcer, AVM in the duodenum status post APC and colonoscopy 04/16-angioectasias in the cecum and ascending colon status post APC 4 to 12 mm polyps noted in the right colon, not removed secondary to presentation
with GI bleeding.
Continue Protonix 40 mg IV twice daily
Monitor H&H and transfuse as needed
Will set up for outpatient small bowel capsule with no evidence of active bleeding.
If hemoglobin stable and no melena, okay to start him on anticoagulation 04/18 (noted patient with A-fib)
Will follow
Original Note:
Today's Communication / Plan
-
as per plan
Assessment / Plan
-
75 yo M pmh HF, A fib on eliquis p/w melena, drop in Hb, elevated BUN, in setting of excessive Advil suspect PUD.
EGD 04/15/25:
Normal esophagus.
- Normal stomach. Biopsied.
- Gastric erosion with no stigmata of recent bleeding.
- Non-bleeding gastric ulcer with no stigmata of bleeding.
- A single non-bleeding angioectasia in the duodenum. Treated with
argon plasma coagulation (APC).
- Non-bleeding duodenal diverticulum.
Bile seen in stomach and small bowel.
COLO 04/16/25:
Preparation of the colon was fair.
- The examined portion of the ileum was normal.
- A single non-bleeding colonic angioectasia. Injected. Treated
with argon plasma coagulation (APC).
- A single non-bleeding colonic angioectasia. Treated with argon
plasma coagulation (APC).
- Three 4 to 12 mm, non-bleeding polyps in the cecum, at the
ileocecal valve and in the transverse colon.
- Large lipoma in the transverse colon.
- Diverticulosis in the sigmoid colon.
- Internal hemorrhoids.
- No specimens collected.
Impression:
Melena
Afib with RVR
Acute blood loss anemia
Non bleeding Gastic ulcer
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
Duodenal diverticulum
Colon AVMs s/p APV
Colon polyps (not removed)
Plan:
-CBC in am
-Continue solid diet
-Continue PPI BID
-Suspect small ulcer from NSAIDs given significant bleeding, small size of ulcer, benign appearance was not biopsied with risk of further bleeding; since not biopsied technically need repeat EGD 8 weeks r/b given overall
clinical status will have follow up in office to discuss although suspicion is low.
-Outpatient video capsule endoscopy. Message sent to our office to coordinate.
-Avoid NSAIDs
-Hold Eliquis today to ensure stable Hgb, ok to resume if stable tomorrow.
- Patient can decide as outpatient if wants cscope for surveillance given his comorbidities.
Subjective
Subjective
Date of Service: April 17, 2025
Patient with drop in Hgb overnight from 8.4 to 7.5 without any BMs overnight or since colonoscopy performed. He did get 1 unit PRBC for the decreased Hgb. No repeat Hgb drawn. He is tolerating solid diet. Eliquis was not resumed today as he did have
the drop in Hgb. Patient without any complaints. He did go into Afib with RVR and did not have any sx. Cardizem was started. Will arrange for outpatient video capsule. Discussed with patient.
Objective
Data Reviewed
Laboratory Data:
Laboratory Results
04/17/25 05:10
Laboratory Results
Magnesium 2.2 mg/dl (1.6-2.3) 04/15/25 01:21
Total Bilirubin 0.5 mg/dl (0.2-1.3) 04/14/25 11:10
AST 16 U/L (17-59) L 04/14/25 11:10
ALT 14 U/L (0-50) 04/14/25 11:10
Alkaline Phosphatase 64 U/L (38-126) 04/14/25 11:10
Vital Signs and I&O:
Vital Signs
Temp Pulse Resp BP Pulse Ox
98.2 F 89 19 114/49 93
04/17/25 15:42 04/17/25 16:00 04/17/25 16:00 04/17/25 16:00 04/17/25 13:41
I&O
04/16/25 04/17/25 04/18/25
06:59 06:59 06:59
Intake Total 2577 / 2577 960 / 960 740 / 740
Output Total 1875 / 1875 1625 / 1625 200 / 200
Balance 702 / 702 -665 / -665 540 / 540
Physical Exam
Physical Exam
HEENT: Anicteric
Cardiology: Irregular Rate/Rhythm (HR 110-140)
Pulmonary: Clear (anterior)
GI: Soft, Non Distended, Non Tender and Normal Bowel Sounds
Extremities: No Edema
Neuro: Non Focal
[2025-04-17 17:44] LABS: Glucose - Point of Care 192 mg/dl (70-99)
[2025-04-17] MEDS: ADVAIR HFA 230/21 MCG INHALER 2 PUFF INH (19:16)
[2025-04-17] MEDS: ATIVAN 2 MG PO (19:42)
[2025-04-17] MEDS: COREG 3.125 MG PO (19:42)
[2025-04-17] MEDS: DESENEX/MITRAZOL/ZEASORB TOPICAL (19:43)
[2025-04-17 20:10] LABS: Hematocrit 26.7 % (39.0-52.0); Hemoglobin 8.7 g/dL (13.0-18.0)
[2025-04-17 21:57] LABS: Glucose - Point of Care 198 mg/dl (70-99)
[2025-04-18] VITALS (39 sets, daily range): BP systolic 85–139; BP diastolic 41–91; PULSE 67; O2SAT 98; BMI 43.2; BMI 42.9
[2025-04-18 04:29] LABS: Hematocrit 26.8 % (39.0-52.0); Hemoglobin 8.7 g/dL (13.0-18.0); Mean Corp Hgb Conc. 32.5 g/dL (33.0-37.0); Mean Corpuscular Volume 95.0 fL (80.0-94.0); Nucleated Red Blood Cells % 0 % (-); Platelet Count 155 10^3/uL (130-400); Red Cell Dist. Width 17.0 % (11.5-14.5)
[2025-04-18 04:52] LABS: Blood Urea Nitrogen 11 mg/dl (9-20); Calcium 8.2 mg/dl (8.4-10.2); Carbon Dioxide 25 mmol/L (22-30); Chloride 108 mmol/L (98-107); Estimated Creatinine Clearance > 125 ml/min; Glucose 135 mg/dl (70-99); Potassium 3.7 mmol/L (3.5-5.1); Sodium 137 mmol/L (135-145); eGFR > 60.00
--- NOTE | 2025-04-18 05:21 | PTCARENOTE ---
Addendum entered by Mana Mckinney RN 04/18/25 05:22:
Patient with long pause overnight on cardizem gtt at 5mg hr. Gtt turned off. fisher scallop provider made aware and discontinued order. Remains afib in the 70s-80s.
Original Note:
No acute events overnight. Hgb 8.7 x2. No melena. Soft BPs will continue to monitor.
--- NOTE | 2025-04-18 07:44 | PTCARENOTE ---
On walking rounds pt is sleeping. Pt HR 80-90 ..
[2025-04-18 08:23] LABS: Glucose - Point of Care 149 mg/dl (70-99)
[2025-04-18] MEDS: ASPIR LOW (ENTERIC COATED) 81 MG PO (08:38)
[2025-04-18] MEDS: NOVOLOG FLEXPEN-MODERATE RESISTANCE SC (08:39)
[2025-04-18] MEDS: COREG 3.125 MG PO ×2 (08:39→19:29)
[2025-04-18] MEDS: CYANOCOBALAMIN 1000 MCG IM (08:39)
[2025-04-18] MEDS: PROTONIX 40 MG PO ×2 (08:40→19:30)
[2025-04-18] MEDS: FOLVITE 1 MG PO (08:40)
[2025-04-18] MEDS: LIPITOR 80 MG PO (08:40)
[2025-04-18] MEDS: PERCOCET 5/325 1 TABLET PO ×2 (08:40→19:31)
[2025-04-18] MEDS: FLOMAX 0.4 MG PO (08:40)
[2025-04-18] MEDS: DESENEX/MITRAZOL/ZEASORB 1 APPLIC TOPICAL ×2 (08:40→19:31)
--- NOTE | 2025-04-18 09:14 | W.PN.CARDCBS ---
Addendum entered and electronically signed by Jeevan Eastman MD 04/18/25 10:22:
I saw and examined the patient.
The SUPERVISOR MAIL CARRIERS or PA's note was reviewed and I agree with the note.
Comment: General: Well developed, well nourished in NAD.
Neck: Supple, no JVD, HJR, carotids +2 B/L, no bruits bilaterally.
Heart: Non displaced PMI, irregular, no murmurs, No S3, S4, no rubs.
Lungs: Scattered rhonchi
Abdomen: Normal bowel sounds, soft, non-tender, non-distended.
Extremities: No clubbing, cyanosis or edema bilaterally.
Neuro: Grossly nonfocal, awake, alert and oriented x3.
Stable cardiology status but remains in A-fib. GI plans to restart anticoagulation tonight. Consider resume oral Lasix in a.m. Might be candidate for outpatient watchman as felt to have possible AVMs. Discussed with primary service in detail.
Continue Coreg for rate control of A-fib
Original Note:
Today's Communication / Plan
-
follow weights. hopefully resume lasix in AM
eliquis to resume tonight if remains without recurrent bleeding per GI recs
no asa or NSAIDs moving forward
continue coreg, uptitrate as BP allows
Impression / Plan
-
PCP: Chester Wilson
Curriculum And Assessment Coordinator: Previously followed by Dr. Xiong, now follows with Dr. Almazan at [facility]
Assessment:
Presentation with fatigue
Acute blood loss anemia
Recent NSAID use
Small gastric ulcer noted by EGD 04/15/25
Paroxysmal atrial fibrillation, now with RVR
Chronic anticoagulation on Eliquis
Admission to [facility] 03/2025 for acute HFpEF
Coronary artery disease
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
Status post mid LAD 3.5 x 28 mm Promus LISANDRO April 2019
Hypertension
Hyperlipidemia
Obesity
Tobacco abuse
Chronic back pain
Asthma
Echo 06/26/2020: TDS: EF 63%. Mild concentric LVH. No significant valvular disease
Echo 03/27/2025: EF 60 to 65%, mild to moderate concentric LVH. Mild MRHerminia
Plan:
- Patient with recent admission to [facility] 03/2025 for acute CHF during which she lost 30+ pounds, then presented back to hospital due to fatigue and was noted to have acute anemia with hemoglobin down to 6.7, requiring 3U PRBCs thus far. He admits to
recent NSAID use in the setting of leg pain. By EGD on 04/15 noted to have small gastric ulcer and AVMs by colonoscopy. He is planned for outpatient capsule study per GI.
- We discussed avoiding NSAIDs moving forward
- hgb stable at 8.7. If remains without evidence of bloody or melanotic stool, will plan to resume Eliquis tonight as per GI recommendations. Aspirin has been stopped, as last stenting was in 2018, and attempt to reduce bleeding risk moving forward
- Heart rate stable in A-fib off of IV Cardizem. Continue Coreg 3.125 mg twice daily and uptitrate to outpatient dose of 6.25 mg twice daily as blood pressures allow
- Check weight via standing scale, weight this morning via bed scale continues to uptrend, however concern that inaccurate. Presently off of outpatient Lasix. Would attempt to resume in next 24 hours if blood pressure tolerates
- Wean supplemental oxygen as able
- Echo last admission from 03/27/2025 reviewed and with results as above
- Recommended visiting nurses upon discharge and patient is agreeable
- OP follow up with Dr. Almazan
- Discussed with nursing
Progress Note - Curriculum And Assessment Coordinator
Subjective
Date of Service: April 18, 2025
Denies chest pain, shortness of breath, palpitations
Objective
Labs:
04/18/25 04:05
04/18/25 04:05
Labs
Hgb 8.7 g/dL (13.0-18.0) L 04/18/25 04:05
Hct 26.8 % (39.0-52.0) L 04/18/25 04:05
Plt Count 155 10^3/uL (130-400) 04/18/25 04:05
Sodium 137 mmol/L (135-145) 04/18/25 04:05
Potassium 3.7 mmol/L (3.5-5.1) 04/18/25 04:05
BUN 11 mg/dl (9-20) 04/18/25 04:05
Creatinine 0.6 mg/dL (0.7-1.3) L 04/18/25 04:05
Glucose 135 mg/dl (70-99) H 04/18/25 04:05
Vital Signs and I&O:
Vital Signs
Temp Pulse Resp BP Pulse Ox
98.0 F 87 18 103/47 91
04/18/25 08:00 04/18/25 08:39 04/18/25 06:30 04/18/25 08:39 04/17/25 20:38
Vital Signs
Temp Pulse Resp BP Pulse Ox
98.0 F 87 18 103/47 91
04/18/25 08:00 04/18/25 08:39 04/18/25 06:30 04/18/25 08:39 04/17/25 20:38
Intake & Output
04/16/25 04/17/25 04/18/25 04/19/25
07:59 07:59 07:59 07:59
Intake Total 2577 / 2577 960 / 960 740 / 740
Output Total 1875 / 1875 1625 / 1625 650 / 650
Balance 702 / 702 -665 / -665 90 / 90
Physical Exam
Physical Exam
GEN: No distress, awake, alert, oriented x3. Obese. On supplemental O2
HEENT: supple, anicteric, mmm, EOMI
LUNGS: CTA bilaterally, no wheezes/rales
CV: Irreg, S1/S2, no murmur
ABD: soft, BS+, NT/ND
EXT: No cyanosis, clubbing. Trace edema of B/L LE
NEURO: Gross non-focal
SKIN: Warm, pink, dry. No rash
[2025-04-18] MEDS: ELIQUIS 5 MG PO ×2 (10:09→19:30)
[2025-04-18 11:34] LABS: Glucose - Point of Care 204 mg/dl (70-99)
--- NOTE | 2025-04-18 11:40 | W.PN.GI.CBS2 ---
Addendum entered and electronically signed by Elidia Triana MD 04/18/25 17:11:
I saw and examined the patient.
The PAYMENT ANALYST or PA's note was reviewed and I agree with the note.
Comment: Patient denies any abdominal pain, nausea or vomiting. No bowel movements yet, tolerating low residue diet
Abdomen-soft, nontender nondistended
Hemoglobin stable
- Anemia and melena, endoscopy evaluation showed nonbleeding gastric ulcer, negative for H. pylori, AVMs in the duodenum and cecum status post APC
No further active bleeding at this time and hemoglobin has been stable
Okay to resume Eliquis today
Monitor H&H closely and follow-up bowel movements as well
Needs outpatient small bowel capsule, our office already reached out to the patient and he will call to schedule after discharge
Can follow-up with Dr. Busch as outpatient as well
Avoid NSAIDs with history of gastric ulcer noted on recent endoscopy
No further GI workup, will sign off, please call back if needed.
Original Note:
Today's Communication / Plan
-
Okay to start Eliquis per GI
Assessment / Plan
-
75 yo M pmh HF, A fib on eliquis p/w melena, drop in Hb, elevated BUN, in setting of excessive Advil suspect PUD.
EGD 04/15/25:
Normal esophagus.
- Normal stomach. Biopsied.
- Gastric erosion with no stigmata of recent bleeding.
- Non-bleeding gastric ulcer with no stigmata of bleeding.
- A single non-bleeding angioectasia in the duodenum. Treated with
argon plasma coagulation (APC).
- Non-bleeding duodenal diverticulum.
Bile seen in stomach and small bowel.
COLO 04/16/25:
Preparation of the colon was fair.
- The examined portion of the ileum was normal.
- A single non-bleeding colonic angioectasia. Injected. Treated
with argon plasma coagulation (APC).
- A single non-bleeding colonic angioectasia. Treated with argon
plasma coagulation (APC).
- Three 4 to 12 mm, non-bleeding polyps in the cecum, at the
ileocecal valve and in the transverse colon.
- Large lipoma in the transverse colon.
- Diverticulosis in the sigmoid colon.
- Internal hemorrhoids.
- No specimens collected.
Impression:
Melena
Afib with RVR
Acute blood loss anemia
Non bleeding Gastic ulcer
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
Duodenal diverticulum
Colon AVMs s/p APV
Colon polyps (not removed)
Plan:
-Continue solid diet
-Continue PPI BID
-Suspect small ulcer from NSAIDs given significant bleeding, small size of ulcer, benign appearance was not biopsied with risk of further bleeding; since not biopsied technically need repeat EGD 8 weeks r/b given overall
clinical status will have follow up in office to discuss although suspicion is low.
-Outpatient video capsule endoscopy. Message sent to our office to coordinate. They reached out to him initially. He would like them to contact him after discharge.
-Avoid NSAIDs
-Okay to start Eliquis.
- Patient can decide as outpatient if wants cscope for surveillance given his comorbidities.
Subjective
Subjective
Date of Service: April 18, 2025
Patient feeling well, from a GI perspective. States he feels a little bit weak. No abdominal pain. No bowel movements. Hemoglobin stable at 8.7. Okay to start anticoagulation (Eliquis). Tolerating solid diet without any difficulty.
Objective
Data Reviewed
Laboratory Data:
Laboratory Results
04/18/25 04:05
Laboratory Results
Magnesium 2.2 mg/dl (1.6-2.3) 04/15/25 01:21
Total Bilirubin 0.5 mg/dl (0.2-1.3) 04/14/25 11:10
AST 16 U/L (17-59) L 04/14/25 11:10
ALT 14 U/L (0-50) 04/14/25 11:10
Alkaline Phosphatase 64 U/L (38-126) 04/14/25 11:10
Vital Signs and I&O:
Vital Signs
Temp Pulse Resp BP Pulse Ox
98.2 F 72 19 103/47 92
04/18/25 11:15 04/18/25 10:00 04/18/25 10:00 04/18/25 08:39 04/18/25 08:00
I&O
04/17/25 04/18/25 04/19/25
06:59 06:59 06:59
Intake Total 960 / 960 740 / 740
Output Total 1625 / 1625 450 / 450 200 / 200
Balance -665 / -665 290 / 290 -200 / -200
Physical Exam
Physical Exam
HEENT: Anicteric
Cardiology: Normal Sinus Rhythm
Pulmonary: Clear (Anterior)
GI: Soft, Non Distended, Non Tender and Normal Bowel Sounds
Extremities: Edema (Trace bilateral lower extremity edema)
Neuro: Non Focal
[2025-04-18] MEDS: NOVOLOG FLEXPEN-MODERATE RESISTANCE 3 UNITS SC ×2 (12:07→16:54)
[2025-04-18 12:56] LABS: Glucose - Point of Care 210 mg/dl (70-99)
--- NOTE | 2025-04-18 16:33 | W.PN.HOSP.TC ---
Today's Communication/Plan
-
Resume back Eliquis
Lasix resumed from tomorrow AM
f/u Hbg level
Assessment / Plan
Assessment / Plan
1. GI Bleed
Peptic ulcer disease
Duodenal/colonic angiectasia
Symptomatic Acute Blood Loss Anemia secondary to GI Bleed
-Patient presented with melena and associated acute blood loss anemia
-Required 5 units of blood transfusion so far
-EGD showing small nonbleeding ulcers -suspected to related to NSAID use
-Patient also had duodenal angiectasia in EGD and colonic angiectasia on colonoscopy which we are cauterized with argon plasma rea
-GI planning to have a small bowel capsule endoscopy on outpatient basis
-Continue follow-up for clinical signs of ongoing blood/ F/u hbg level
-Eliquis to be resumed from today in the morning
-Maintained on protonix
2. Coronary Artery Disease s/p LAD Stent 2019
-Aspirin was initially continued, but per cardiology, as last stenting was in 2019 and ASA stopped.
3. Paroxysmal Atrial Fibrillation
GI bleed is related to/associated with/exacerbated by Eliquis
-Cardizem Drip started on 04/17/25 due to A-Fib with RVR
-resume Coreg at 3.125 mg BID (half the home dose) on 04/17/25 given A-Fib RVR
-Cardiology help appreciated
-Patient resumed back on eliquis.
4. Chronic HFpEF
-Diuretics on hold, resuming back from tomorrow morning.
-Monitor Volume Status and Daily Weights
5. Nocturnal Hypoxia
-Could be LISA or OHS
-Will need outpatient sleep study
6. Diabetes Mellitus, Type II
-Oral diabetic meds on hold while NPO
-Monitor sugars and continue coverage insulin
-Continue Diabetic Diet
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
Diverticulosis in the sigmoid colon
Internal hemorrhoids
Essential Hypertension
Hyperlipidemia
Asthma, no acute exacerbation
Psoriasis
Obesity due to Excess Calories
DVT Prophylaxis: SCDs only until able to resume Eliquis
Code Status: Full Code
Anticipated Discharge: 24 - 48 hours
Subjective/Interval History
-
Date of Service: April 18, 2025
Denies of having any melena/bright red blood per rectum
No bowel movement overnight reported
Denies abdominal pain/nausea/vomiting
Objective Data
-
Labs:
Laboratory Results
04/18/25 04/18/25
04:05 18:00
WBC Pending
Hgb Pending
Hct Pending
Plt Count Pending
Sodium 137
Potassium 3.7
Chloride 108 H
Carbon Dioxide 25
BUN 11
Creatinine 0.6 L
Glucose 135 H
Calcium 8.2 L
Vital Signs:
Vital Signs
Temp Pulse Resp BP Pulse Ox
98.1 F 68 16 122/47 92
04/18/25 15:38 04/18/25 15:00 04/18/25 15:00 04/18/25 15:00 04/18/25 08:00
I&O
04/17/25 04/18/25 04/19/25
06:59 06:59 06:59
Intake Total 960 / 960 740 / 740
Output Total 1625 / 1625 450 / 450 500 / 500
Balance -665 / -665 290 / 290 -500 / -500
Review of Systems
-
Respiratory: Reports No Symptoms
Cardiac: Reports No Symptoms
Abdomen/GI: Reports No Symptoms
Physical Exam
-
General: No Apparent Distress and Comfortable
HEENT: Negative Oxygen
Respiratory: Clear to Auscultation
Cardiac: Regular Rhythm and S1/S2; Negative Murmur or Rub
GI: Soft and Nontender
Musculoskeletal: No Edema
Neuro: Awake, Alert, Oriented, No Motor Deficits and Nonfocal/Grossly Intact
Psych: Calm
[2025-04-18 16:45] LABS: Glucose - Point of Care 219 mg/dl (70-99)
[2025-04-18] MEDS: MIRALAX 119 GRAMS PO (16:55)
[2025-04-18] MEDS: ATIVAN 2 MG PO (19:31)
[2025-04-18 21:44] LABS: Glucose - Point of Care 213 mg/dl (70-99)
[2025-04-19] VITALS (18 sets, daily range): BP systolic 118–158; BP diastolic 56–81; PULSE 70–113; O2SAT 94–96; BMI 43.3
[2025-04-19 04:47] LABS: Hematocrit 26.6 % (39.0-52.0); Hemoglobin 8.7 g/dL (13.0-18.0); Mean Corp Hgb Conc. 32.7 g/dL (33.0-37.0); Mean Corpuscular Volume 94.7 fL (80.0-94.0); Platelet Count 170 10^3/uL (130-400); Red Cell Dist. Width 16.8 % (11.5-14.5)
--- NOTE | 2025-04-19 04:53 | PTCARENOTE ---
No acute events overnight. No melena. AM hgb remains at 8.7. BPs within normal limits. Will continue to monitor.
[2025-04-19] MEDS: COREG 3.125 MG PO ×2 (08:33→20:36)
[2025-04-19] MEDS: LIPITOR 80 MG PO (08:33)
[2025-04-19] MEDS: FLOMAX 0.4 MG PO (08:33)
[2025-04-19 08:34] LABS: Glucose - Point of Care 146 mg/dl (70-99)
[2025-04-19] MEDS: ASPIR LOW (ENTERIC COATED) 81 MG PO (08:34)
[2025-04-19] MEDS: PERCOCET 5/325 1 TABLET PO ×2 (08:34→20:36)
[2025-04-19] MEDS: PROTONIX 40 MG PO ×2 (08:34→20:37)
[2025-04-19] MEDS: FOLVITE 1 MG PO (08:34)
[2025-04-19] MEDS: CYANOCOBALAMIN 1000 MCG IM (08:34)
[2025-04-19] MEDS: LASIX 40 MG PO ×2 (08:34→16:24)
[2025-04-19] MEDS: ELIQUIS 5 MG PO ×2 (08:34→20:36)
[2025-04-19] MEDS: DESENEX/MITRAZOL/ZEASORB 1 APPLIC TOPICAL ×2 (08:35→20:48)
[2025-04-19] MEDS: NOVOLOG FLEXPEN-MODERATE RESISTANCE SC (08:38)
[2025-04-19] MEDS: MIRALAX 119 GRAMS PO (08:38)
--- NOTE | 2025-04-19 08:56 | W.PN.CARDCBS ---
Addendum entered and electronically signed by Rosi Solorzano MD 04/19/25 11:54:
I saw and examined the patient.
The Bat Carrier's note was reviewed and I agree with the note.
Comment: Spoke with patient at great length. He may be discharged in the near future. Continue medications as noted below. Continue oral anticoagulation. He has had no further bleeding thankfully. Further discussion regarding appropriateness of
oral anticoagulation to be discussed with primary actuarial consultant as an outpatient and consideration for Watchman may also be discussed if felt to be appropriate.
All questions answered.
Original Note:
Today's Communication / Plan
-
In sinus rhythm
Continue Coreg 3.125 mg twice daily, uptitrate as blood pressure allows
Eliquis 5 mg twice daily. Hemoglobin stable without recurrent bleeding overnight
Back on Lasix 40 mg p.o. twice daily
Holding outpatient spironolactone until reevaluated in cardiology office
Outpatient follow-up with Dr. lAmazan of [facility], consider candidacy for Watchman
Impression / Plan
-
PCP: Chester Wilson
Fiberglass Laminator: Previously followed by Dr. Xiong, now follows with Dr. Almazan at [facility]
Assessment:
Presentation with fatigue
Acute blood loss anemia
Recent NSAID use
Small gastric ulcer noted by EGD 04/15/25
Paroxysmal atrial fibrillation, now with RVR
Chronic anticoagulation on Eliquis
Admission to [facility] 03/2025 for acute HFpEF
Coronary artery disease
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
Status post mid LAD 3.5 x 28 mm Promus LISANDRO April 2019
Hypertension
Hyperlipidemia
Obesity
Tobacco abuse
Chronic back pain
Asthma
Echo 06/26/2020: TDS: EF 63%. Mild concentric LVH. No significant valvular disease
Echo 03/27/2025: EF 60 to 65%, mild to moderate concentric LVH. Mild MR.
Plan:
- Patient with recent admission to [facility] 03/2025 for acute CHF during which he lost 30+ pounds, then presented back to hospital due to fatigue and was noted to have acute anemia with hemoglobin down to 6.7, requiring blood transfusions. He admits to
recent NSAID use in the setting of leg pain. By EGD on 04/15 noted to have small gastric ulcer and AVMs by colonoscopy. He is planned for outpatient capsule study per GI.
- Hemoglobin remained stable at 8.7 without recurrent episodes of bloody/melanotic stool overnight per nursing. Eliquis was resumed 04/18. Aspirin was stopped this admission as last stenting was in 2019 in an attempt to reduce his bleeding risk
moving forward
- He also knows to avoid NSAIDs moving forward
- He spontaneously converted to sinus rhythm around 930 on 04/18 and remains in sinus rhythm on review of telemetry overnight. Continue Coreg 3.125 mg twice daily, and uptitrate outpatient dose of 6.25 mg twice daily as blood pressures allow
- Outpatient Lasix 40 mg p.o. twice daily has been restarted as of this morning.
- Wean supplemental oxygen as able
- would continue to hold spironolactone until seen in outpatient setting and if blood pressure stable, would resume
- Echo last admission from 03/27/2025 reviewed and with results as above
- Recommended visiting nurses upon discharge and patient is agreeable
- OP follow up with Dr. Almazan. Would consider candidacy for Watchman given noted AVMs by colonoscopy this admission
- Discussed with nursing
Progress Note - Fiberglass Laminator
Subjective
Date of Service: April 19, 2025
No issues overnight. Denies recurrent bleeding
Objective
Labs:
04/19/25 04:37
04/18/25 04:05
Labs
Hgb 8.7 g/dL (13.0-18.0) L 04/19/25 04:37
Hct 26.6 % (39.0-52.0) L 04/19/25 04:37
Plt Count 170 10^3/uL (130-400) 04/19/25 04:37
Sodium 137 mmol/L (135-145) 04/18/25 04:05
Potassium 3.7 mmol/L (3.5-5.1) 04/18/25 04:05
BUN 11 mg/dl (9-20) 04/18/25 04:05
Creatinine 0.6 mg/dL (0.7-1.3) L 04/18/25 04:05
Glucose 135 mg/dl (70-99) H 04/18/25 04:05
Vital Signs and I&O:
Vital Signs
Temp Pulse Resp BP Pulse Ox
98.7 F 76 17 122/60 94
04/19/25 02:40 04/19/25 08:33 04/19/25 06:00 04/19/25 08:33 04/18/25 21:37
Vital Signs
Temp Pulse Resp BP Pulse Ox
98.7 F 76 17 122/60 94
04/19/25 02:40 04/19/25 08:33 04/19/25 06:00 04/19/25 08:33 04/18/25 21:37
Intake & Output
04/17/25 04/18/25 04/19/25 04/20/25
07:59 07:59 07:59 07:59
Intake Total 960 / 960 740 / 740 240 / 240
Output Total 1625 / 1625 650 / 650 975 / 975
Balance -665 / -665 90 / 90 -735 / -735
Physical Exam
Physical Exam
GEN: No distress, awake, alert, oriented x3. Obese. On supplemental O2
HEENT: supple, anicteric, mmm, EOMI
LUNGS: CTA bilaterally, no wheezes/rales
CV: Reg, S1/S2, no murmur
ABD: soft, BS+, NT/ND
EXT: No cyanosis, clubbing. Trace edema of B/L LE
NEURO: Gross non-focal
SKIN: Warm, pink, dry. No rash
--- NOTE | 2025-04-19 09:03 | W.PN.HOSP.TC ---
Today's Communication/Plan
-
d.c planning
patient wants home discharge, DME to be arranged
med/surg transfer
Assessment / Plan
Assessment / Plan
1. GI Bleed
Peptic ulcer disease
Duodenal/colonic angiectasia
Symptomatic Acute Blood Loss Anemia secondary to GI Bleed
-Patient presented with melena and associated acute blood loss anemia
-Required 5 units of blood transfusion so far
-EGD showing small nonbleeding ulcers -suspected to related to NSAID use
-Patient also had duodenal angiectasia in EGD and colonic angiectasia on colonoscopy which we are cauterized with argon plasma rea
-GI planning to have a small bowel capsule endoscopy on outpatient basis
-Continue follow-up for clinical signs of ongoing blood/ F/u hbg level
-Eliquis resumed. hbg stable.
-Maintained on protonix
2. Coronary Artery Disease s/p LAD Stent 2019
-Aspirin was initially continued, but per cardiology, as last stenting was in 2019 and ASA stopped.
3. Paroxysmal Atrial Fibrillation
GI bleed is related to/associated with/exacerbated by Eliquis
-Cardizem Drip started on 04/17/25 due to A-Fib with RVR
-resume Coreg at 3.125 mg BID (half the home dose) on 04/17/25 given A-Fib RVR
-Cardiology help appreciated
-Patient resumed back on eliquis.
4. Chronic HFpEF
-Diuretics resumed,
-Monitor Volume Status and Daily Weights
5. Nocturnal Hypoxia
-Could be LISA or OHS
-Will need outpatient sleep study
6. Diabetes Mellitus, Type II
-Oral diabetic meds on hold while NPO
-Monitor sugars and continue coverage insulin
-Continue Diabetic Diet
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
Diverticulosis in the sigmoid colon
Internal hemorrhoids
Essential Hypertension
Hyperlipidemia
Asthma, no acute exacerbation
Psoriasis
Obesity due to Excess Calories
DVT Prophylaxis: SCDs only until able to resume Eliquis
Code Status: Full Code
Anticipated Discharge: Within 24 hours
Subjective/Interval History
-
Date of Service: April 19, 2025
no new issues
no melena/blood in stool
Objective Data
-
Labs:
Laboratory Results
04/18/25 04/19/25
18:00 04:37
WBC Cancelled 8.2
Hgb Cancelled 8.7 L
Hct Cancelled 26.6 L
Plt Count Cancelled 170
Vital Signs:
Vital Signs
Temp Pulse Resp BP Pulse Ox
98.7 F 76 17 122/60 94
04/19/25 02:40 04/19/25 08:33 04/19/25 06:00 04/19/25 08:33 04/18/25 21:37
I&O
04/18/25 04/19/25 04/20/25
06:59 06:59 06:59
Intake Total 740 / 740 240 / 240
Output Total 450 / 450 1175 / 1175
Balance 290 / 290 -935 / -935
Review of Systems
-
Respiratory: Reports No Symptoms
Cardiac: Reports No Symptoms
Abdomen/GI: Reports No Symptoms
Physical Exam
-
General: No Apparent Distress and Comfortable
HEENT: Negative Oxygen
Respiratory: Clear to Auscultation
Cardiac: Regular Rhythm and S1/S2; Negative Murmur or Rub
GI: Soft and Nontender
Musculoskeletal: No Edema
Neuro: Awake, Alert, Oriented, No Motor Deficits and Nonfocal/Grossly Intact
Psych: Calm
[2025-04-19 12:21] LABS: Glucose - Point of Care 228 mg/dl (70-99)
[2025-04-19] MEDS: NOVOLOG FLEXPEN-MODERATE RESISTANCE 3 UNITS SC (12:30)
--- NOTE | 2025-04-19 12:55 | CM ---
Addendum entered by Shaila Arevalo 04/19/25 15:36:
Patient has now agreed to SNF. Preference is [facility]. Spoke with patient and son. Attending aware. Referral forwarded. Needs Auth.
[employer] unable to get approval for bariatric commode. Patient is below weight requirement even though he does not fit into standard commode.
Original Note:
Met with patient and discussed discharge POC: Therapy recommended SNF for patient. Patient adamantly declines SNF. He wants to go home with resumption of services with [facility]. Referral will be made. Per therapy patient having difficulty
raising off toilet. Bariatric Commode ordered from Shankar at [employer]. Shankar # [phone] and . Patient said there is sufficient room around toilet to accommodate the commode. Anticipate delivery to home tomorrow 04/20/25. Patient
also requesting grab bars for toilet area. Insurance does not pay for grab bars. Supplied patient with [employer] photos and list of available grab bars up to 500 pounds. Encouraged patient to only purchase permanent fixed bars and not the suction cup
style. Expressed understanding. Discharge POC: [facility], PT/OT and FILM SOUND ENGINEER.
--- NOTE | 2025-04-19 14:08 | PTCARENOTE ---
Pt is AAOx3 for tx to med surg. Probable DC to home in AM. Pt is refusing to go to [facility]. Now wants to speak with case managers as he is afraid to go home and wants to stay in hospital for a few more days. Pt sitting OOB in chair uses urinal for
voiding, expects staff to hold urinal for him. social media campaign manager aware that pt wants to speak with her.
[2025-04-19 17:34] LABS: Glucose - Point of Care 169 mg/dl (70-99)
[2025-04-19] MEDS: NOVOLOG FLEXPEN-MODERATE RESISTANCE 1 UNITS SC (18:15)
[2025-04-19] MEDS: ZOFRAN 4 MG IV (20:37)
[2025-04-19 21:37] LABS: Glucose - Point of Care 268 mg/dl (70-99)
[2025-04-19] MEDS: ATIVAN 2 MG PO (21:43)
[2025-04-20 06:00] VITALS: BMI 42.2
[2025-04-20 07:37] VITALS: BP 139/73
[2025-04-20] MEDS: COREG 3.125 MG PO (07:57)
[2025-04-20] MEDS: PROTONIX 40 MG PO (07:57)
[2025-04-20] MEDS: ASPIR LOW (ENTERIC COATED) 81 MG PO (07:57)
[2025-04-20] MEDS: LIPITOR 80 MG PO (07:57)
[2025-04-20] MEDS: CYANOCOBALAMIN 1000 MCG IM (07:58)
[2025-04-20] MEDS: MIRALAX PO (07:58)
[2025-04-20] MEDS: PERCOCET 5/325 1 TABLET PO (07:58)
[2025-04-20] MEDS: ELIQUIS 5 MG PO (07:58)
[2025-04-20] MEDS: FOLVITE 1 MG PO (07:58)
[2025-04-20] MEDS: FLOMAX 0.4 MG PO (07:58)
[2025-04-20] MEDS: LASIX 40 MG PO (07:58)
[2025-04-20] MEDS: DESENEX/MITRAZOL/ZEASORB 1 APPLIC TOPICAL (07:59)
[2025-04-20 08:09] LABS: Glucose - Point of Care 151 mg/dl (70-99)
[2025-04-20] MEDS: NOVOLOG FLEXPEN-MODERATE RESISTANCE 1 UNITS SC (10:21)
--- NOTE | 2025-04-20 11:38 | CM ---
Addendum entered by Yessi De La Fuente 04/20/25 16:17:
Lata @ [facility] notified of transport continuous pickling line pickler time
Addendum entered by Yessi De La Fuente 04/20/25 16:13:
Met with patient; IMM benefit explained; form signed @ 1610
Patient reported that his son will transport via [facility]
Plan: Discharge to [facility] today
Report # [id number]

Addendum entered by Yessi De La Fuente 04/20/25 15:30:
Authorization for [facility] approved starting today, 04/20 through 04/26/2025; Next review 04/27/25,
Authorization # [id number]
Plan: Discharge to [facility] today
Report # [id number]

Original Note:
Per Attending, patient is stable for discharge
Authorization submitted to [facility]; clinicals faxed to [phone]; Reference ID # [id number]
Plan: Discharge to [facility] pending authorization approval
Report # [id number]
[2025-04-20 11:56] LABS: Glucose - Point of Care 246 mg/dl (70-99)
[2025-04-20 12:21] LABS: Hematocrit 31.2 % (39.0-52.0); Hemoglobin 10.1 g/dL (13.0-18.0); Mean Corp Hgb Conc. 32.4 g/dL (33.0-37.0); Mean Corpuscular Volume 94.3 fL (80.0-94.0); Platelet Count 194 10^3/uL (130-400); Red Cell Dist. Width 16.2 % (11.5-14.5)
--- NOTE | 2025-04-20 12:24 | W.PN.HOSP.TC ---
Today's Communication/Plan
-
d/c planning for snf rehab
Assessment / Plan
Assessment / Plan
1. GI Bleed
Peptic ulcer disease
Duodenal/colonic angiectasia
Symptomatic Acute Blood Loss Anemia secondary to GI Bleed
-Patient presented with melena and associated acute blood loss anemia
-Required 5 units of blood transfusion so far
-EGD showing small nonbleeding ulcers -suspected to related to NSAID use
-Patient also had duodenal angiectasia in EGD and colonic angiectasia on colonoscopy which we are cauterized with argon plasma rea
-GI planning to have a small bowel capsule endoscopy on outpatient basis
-Continue follow-up for clinical signs of ongoing blood/ F/u hbg level
-Eliquis resumed. hbg stable, recheck of hemoglobin actually showing uptrend of hemoglobin to 10.1 today.
-Maintained on protonix
2. Coronary Artery Disease s/p LAD Stent 2019
-Aspirin was initially continued, but per cardiology, as last stenting was in 2019 and ASA stopped.
3. Paroxysmal Atrial Fibrillation
GI bleed is related to/associated with/exacerbated by Eliquis
-Cardizem Drip started on 04/17/25 due to A-Fib with RVR
-resume Coreg at 3.125 mg BID (half the home dose) on 04/17/25 given A-Fib RVR
-Cardiology help appreciated
-Patient resumed back on eliquis.
4. Chronic HFpEF
-Diuretics resumed,
-Monitor Volume Status and Daily Weights
5. Nocturnal Hypoxia
-Could be LISA or OHS
-Will need outpatient sleep study
6. Diabetes Mellitus, Type II
-Oral diabetic meds on hold while NPO
-Monitor sugars and continue coverage insulin
-Continue Diabetic Diet
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
Diverticulosis in the sigmoid colon
Internal hemorrhoids
Essential Hypertension
Hyperlipidemia
Asthma, no acute exacerbation
Psoriasis
Obesity due to Excess Calories
DVT Prophylaxis: SCDs only until able to resume Eliquis
Code Status: Full Code
04/20 patient remains anxious and tearful as want to go home. Unfortunately patient does not have enough family support for patient to be safe at home. Discussed at length that patient would be better suited to go home after doing a short stay rehab
to assure regaining of independence. Patient can see his limitation but also cannot come at term for going to rehab. Patient is feeling nervous and willing to try Xanax to help with anxiety symptoms.
Anticipated Discharge: Today
Subjective/Interval History
-
Date of Service: April 20, 2025
Resting comfortably in bed
Patient tearful as does not want to go to rehab although may not able to be safe discharge at home
Objective Data
-
Labs:
Laboratory Results
04/20/25
11:52
WBC 7.2
Hgb 10.1 L
Hct 31.2 L
Plt Count 194
Vital Signs:
Vital Signs
Temp Pulse Resp BP Pulse Ox
98.9 F 82 18 139/73 93
04/20/25 07:37 04/20/25 11:29 04/20/25 11:29 04/20/25 07:37 04/20/25 11:29
I&O
04/19/25 04/20/25 04/21/25
06:59 06:59 06:59
Intake Total 240 / 240 980 / 980
Output Total 1175 / 1175 2150 / 2150
Balance -935 / -935 -1170 / -1170
Review of Systems
-
Respiratory: Reports No Symptoms
Cardiac: Reports No Symptoms
Abdomen/GI: Reports No Symptoms
Physical Exam
-
General: Appears in Distress
HEENT: Negative Oxygen
Neuro: Awake, Alert and Oriented
Psych: Anxious
[2025-04-20] MEDS: ALPRAZOLAM ODT 0.25 MG PO (12:57)
[2025-04-20] MEDS: NOVOLOG FLEXPEN-MODERATE RESISTANCE 3 UNITS SC (12:58)
[2025-04-20 15:08] VITALS: BP 146/62
[2025-04-20] MEDS: LASIX PO ×2 (15:13→16:08)
--- NOTE | 2025-04-20 18:14 | W.DCSUMMARY ---
Discharge Summary
Discharge Data
Date of Admission: 04/14/25
Date of Discharge: 04/20/25
-
Pending Results: No
Hospital Course
Discharging Physician : Dr Tru Kahn
Disposition : SNF rehab
Primary care physician : Dr Chester Wilson
Principal Discharge diagnosis :
Gastrointestinal bleed from peptic ulcer disease/angiectasia
Acute blood loss anemia
Paroxysmal atrial fibrillation on Eliquis
Chronic Discharge diagnosis :
Coronary disease with history of stent
Chronic diastolic congestive heart failure
Type 2 diabetes mellitus
Large lipoma of the transverse colon
Internal hemorrhoids
Essential hypertension
Hyperlipidemia
Asthma
Psoriasis
Obesity
Hospital Course :
Patient is a 75-year-old male with no mentioned past medical history came to ER with new onset of generalized weakness and shortness of breath. In ER patient was noted to having new onset of anemia with patient denying any melena/blood in stool.
GI was involved in care as there was concern of possible occult GI bleed. Patient was on Eliquis and was taking NSAIDs at home which were held. Patient required blood transfusion initially for stabilization of hemoglobin. After discussion patient
was taken for EGD/colonoscopy and was found to have gastric ulceration with stigmata of recent bleeding on EGD. Patient also had noted to have angiectasia on duodenum and on some on colonoscopy, this was treated with argon plasma coagulation. GI
recommended for patient to underwent small bowel capsule endoscopy at discharge. Patient required total of 5 units of blood transfusion this admission. Cardiology was involved in care and patient was cleared to be started on Eliquis, patient was
monitored in hospital and did not have any further drop in hemoglobin. Post medical stabilization patient was discharged to [facility] facility for [facility]
Important imaging findings :
None
Procedure findings :
None
Discharge Plan
-
Patient Disposition: [facility]/SNF
Discharge Diagnosis/Procedures: GI bleed from vascular angio-ectasia , Peptic ulcer disease
Condition: Fair
Diet: 2 Gram Sodium, Diabetic, Carb Controlled and Restrict fluids to 48 oz
Activity: As tolerated
Driving Restrictions: No driving
Bathing Restrictions: OK to Shower
Specialty Instructions: Weigh Daily- Call MD for wt gain/loss 3 lbs overnight/5 lbs in 1 week
Instructions: *PCP/Other [employer] Heart Failure Instructions
Referrals:
Chester Chang MD [Family Provider, Family Practice] - in one week
Jeremiah Almazan MD [Non-Admitting Privileges, Cardiology] - 05/09/25 11:00 am
Referral Note: Please call with questions
Prescriptions:
New
carvedilol 3.125 mg Tablet
3.125 mg PO BID Qty: 60 0RF
pantoprazole 40 mg Tablet,Delayed Release (Dr/Ec)
40 mg PO BID Qty: 60 0RF
oxycodone-acetaminophen [Percocet] 5-325 mg tablet
1 tab PO BID Qty: 6 0RF
lorazepam 2 mg tablet
2 mg PO HS PRN (Reason: anxiety) Qty: 3 0RF
Continued
dapagliflozin propanediol [Farxiga] 10 MG tablet
10 mg PO DAILY
aspirin 81 mg Tablet,Delayed Release (Dr/Ec)
81 mg PO DAILY
albuterol sulfate 90 mcg/actuation Hfa Aerosol Inhaler
2 puff INHALATION R Q6HPRN PRN (Reason: wheezing)
Atrovent HFA 17 mcg/actuation Hfa Aerosol Inhaler
2 puff INHALATION R HSPRN PRN (Reason: sob)
Eliquis 5 mg Tablet
5 mg PO Q12H
atorvastatin 80 MG tablet
80 mg PO DAILY
fluticasone propion-salmeterol [Advair Diskus] 500-50 mcg/dose Blister With Device
0 inh INHALATION .SEE BELOW PRN (Reason: sob)
Patient Comments:
03/26/2025, [facility] records from 07/23/2020; no pharmacy records w/ this med.; pt. claims to take 2 puffs TIDPRN for SOB.
glipizide 5 mg Tablet Extended Release 24hr
5 mg PO DAILY Qty: 30 0RF
(DME) Contour Next Test Strips Strip
Qty: 100 1RF
Rx Instructions:
Test glucose before breakfast dinner and HS As Directed
(DME) lancets [Color Lancets] 21 gauge Misc
Qty: 100 1RF
Rx Instructions:
Test glucose before breakfast dinner and HS As Directed
metformin 500 mg Tablet
500 mg PO BID@0800,1700 Qty: 0 0RF
potassium chloride 20 mEq Tablet,Er Particles/Crystals
40 meq PO DAILY Qty: 0 0RF
furosemide 40 mg Tablet
40 mg PO BID AT 0800,1600 Qty: 60 0RF
polyethylene glycol 3350 17 gram Powder In Packet
17 g PO DAILY Qty: 0 0RF
tamsulosin 0.4 mg Capsule
0.4 mg PO DAILY Qty: 0 0RF
methotrexate sodium 2.5 mg tablet
20 mg PO SA
Discontinued
clonidine HCl 0.1 MG tablet
0.1 mg PO HS
carvedilol 6.25 MG tablet
6.25 mg PO Q12H
spironolactone 25 mg Tablet
12.5 mg PO DAILY Qty: 0 0RF
sennosides-docusate sodium 8.6-50 mg Tablet
2 tab PO BID Qty: 0 0RF
tramadol 50 mg Tablet
50 mg PO BIDPRN PRN (Reason: mild pain) Qty: 6 0RF
oxycodone-acetaminophen 5-325 mg Tablet
1 tab PO BID Qty: 6 0RF
lorazepam 1 MG tablet
2 mg PO HS Qty: 3 0RF
Discharge Orders:
Discharge Patient (As Directed); Ordered 04/20/25
Ordered By: Tru Kahn
Discharge Date and Time
Discharge Date/Time: 04/20/25 17:08
Print Language: ANGUILLAN
== END 2025-04-20 17:08 | DRG 378 ==
LOC: 3 WEST ACU 13:29
PROVIDERS: Hospitalist; Nurse Practitioner Family; Nurse Practitioner Gerontology; Physician Assistant Medical; ADMITTING PHYSICIAN Internal Medicine; ATTENDING PHYSICIAN Hospitalist; CONSULT PHYSICIAN Internal Medicine Cardiovascular Disease; CONSULT PHYSICIAN Internal Medicine Gastroenterology; EMERGENCY PHYSICIAN Emergency Medicine; FAMILY PHYSICIAN Family Medicine
PROC: 30233N1 Transfusion of Nonautologous Red Blood Cells into Peripheral Vein, Percutaneous Approach (ICD-10-PCS; 2025-04-14)
PROC: 0W3P8ZZ Control Bleeding in Gastrointestinal Tract, Via Natural or Artificial Opening Endoscopic (ICD-10-PCS; 2025-04-15)
PROC: 0DB68ZX Excision of Stomach, Via Natural or Artificial Opening Endoscopic, Diagnostic (ICD-10-PCS; 2025-04-15)
DX: K31.811 Angiodysplasia of stomach and duodenum with bleeding (principal); D62 Acute posthemorrhagic anemia; I50.32 Chronic diastolic (congestive) heart failure; Z68.41 Body mass index [BMI] 40.0-44.9, adult; D68.32 Hemorrhagic disorder due to extrinsic circulating anticoagulants; K27.4 Chronic or unspecified peptic ulcer, site unspecified, with hemorrhage; K55.21 Angiodysplasia of colon with hemorrhage; F17.200 Nicotine dependence, unspecified, uncomplicated; I25.10 Atherosclerotic heart disease of native coronary artery without angina pectoris; J45.909 Unspecified asthma, uncomplicated; I11.0 Hypertensive heart disease with heart failure; I48.0 Paroxysmal atrial fibrillation; E11.9 Type 2 diabetes mellitus without complications; K64.0 First degree hemorrhoids; D17.5 Benign lipomatous neoplasm of intra-abdominal organs; K57.10 Diverticulosis of small intestine without perforation or abscess without bleeding; K57.30 Diverticulosis of large intestine without perforation or abscess without bleeding; D12.3 Benign neoplasm of transverse colon; L40.8 Other psoriasis; E66.09 Other obesity due to excess calories; Z79.01 Long term (current) use of anticoagulants; Z79.899 Other long term (current) drug therapy; T45.515A Adverse effect of anticoagulants, initial encounter; E78.00 Pure hypercholesterolemia, unspecified; G89.29 Other chronic pain; Z79.4 Long term (current) use of insulin; Z79.82 Long term (current) use of aspirin; Z95.5 Presence of coronary angioplasty implant and graft
CPT/HCPCS: 36430; 71045; 80048; 80053; 82040; 82607; 82728; 82746; 82962; 83540; 83550; 83735; 83880; 84484; 85014; 85018; 85025; 85027; 86803; 86850; 86900; 86901; 86920; 88305; 88342; 93005; 94640; 96361; 96365; 96366; 96375; 97116; 97163; 97167; 97530; 99291; P9016